=== PATIENT | female | born 1940 | race Caucasian/White ===

== ENCOUNTER → 2020-12-15 13:40 | Outpatient (CLI) | payer MEDICARE, OTHER, SELFPAY ==
--- NOTE | ~2020-12-15 | CT_ITS ---
EXAMINATION: CT lumbar spine wo con DATE: 12/15/2020 14:14 INDICATION: Lumbar radiculopathy. TECHNIQUE: Computed tomography (CT) of the lumbar spine was performed without intravenous contrast. A utomated exposure control and iterative reconstruction technique were employed. The dose-length produ ct was 748.39 mGy-cm. COMPARISON: None FINDINGS: There is dextroscoliosis of thoracolumbar spine. There is 3 mm anterolisthesis of L3 on L4. S1 is a transitional segment. Vertebral body heights are normal. There is mildly decreased disc heig ht at L3-L4 and L4-L5 and severely decreased disc height at L5-S1 with endplate remodeling. The follo wing disc levels are specifically discussed: L1-L2: The disc is bulging. There is mild bilateral facet joint osteoarthritis. There is no neural fo raminal stenosis. There is mild central canal stenosis. L2-L3: The disc is bulging. There is moderate bilateral facet joint osteoarthritis. There is mild chivo ateral neural foraminal stenosis. There is mild central canal stenosis. L3-L4: The disc is bulging. There is severe bilateral facet joint osteoarthritis. There is mild bilat eral neural foraminal stenosis. There is mild central canal stenosis. L4-L5: The disc is bulging. There is severe bilateral facet joint osteoarthritis. There is mild bilat eral neural foraminal stenosis. There is mild central canal stenosis. L5-S1: The disc is bulging. There is severe bilateral facet joint osteoarthritis. There is mild bilat eral neural foraminal stenosis. There is mild central canal stenosis. IMPRESSION: 1. Severe lumbar spondylosis. 2. Thoracolumbar dextroscoliosis. Reviewed, dictated and finalized at location A.
--- NOTE | ~2020-12-15 | XR_ITS ---
EXAMINATION: XR hip RT 2V w AP pelvis INDICATION: Right hip pain TECHNIQUE: AP view of the pelvis and two views of the right hip are obtained. COMPARISON: None available FINDINGS: Alignment is normal. There is no fracture. Mild osteoarthritis is noted in the hips. There are surgical changes of the rectum. There also appear to be surgical changes of left inguinal hernia repair. IMPRESSION: 1. Mild osteoarthritis. Reviewed, dictated and finalized at location B. IMPRESSION: 1. Mild osteoarthritis.
== END ==
PROVIDERS: PCP Emergency Medicine; Visit Provider Nurse Practitioner Adult Health
DX: M16.11 Unilateral primary osteoarthritis, right hip (principal); M47.26 Other spondylosis with radiculopathy, lumbar region; M51.26 Other intervertebral disc displacement, lumbar region
CPT/HCPCS: 72131; 73502

== ENCOUNTER 2020-12-27 09:34 | Outpatient (CLI) | payer MEDICARE, OTHER, SELFPAY ==
--- NOTE | 2020-12-27 09:44 | ECHO_ITS ---
Patient Info Name: Karina Gillespie Age: 80 years : 1940 Gender: Female Ht: 68 in Wt: 162 lbs BSA: 1.89 m2 HR: 71 bpm BP: 167 / 77 mmHg Heart Rhythm: Sinus Rhythm Exam Date: 12/27/2020 10:27 AM Exam Location: [facility] Patient Status: Outpatient Admit Date: 12/27/2020 Staff Ordering Physician: Felipe Madsen DO Disability Advocate: Cathleen Jain RDCS Attending Provider: Felipe Madsen DO Exam Type: CA echo doppler color flow Study Info Indications R06.00 - Dyspnea, unspecified Complete two-dimensional, color flow and Doppler transthoracic echocardiogram is performed. Summary 1. Complete two-dimensional, color flow and Doppler transthoracic echocardiogram is performed. 2. Left ventricular chamber dimension is normal. 3. Left ventricular systolic function is normal, estimated at 60-65%. 4. The left ventricular diastolic function is grade I diastolic dysfunction. 5. E/e' 11 is mildly elevated. 6. Linear artifact in right ventricle suggestive of catheter(s), pacemaker lead(s), or ICD lead(s). 7. Linear artifact in the right atrium suggestive of catheter(s), pacemaker lead(s), or ICD lead(s). 8. There is trace mitral valve regurgitation. 9. There is mild tricuspid valve regurgitation. 10. No pulmonary hypertension, estimated pulmonary arterial systolic pressure is 35 mmHg. Left Ventricle E/e' 11 is mildly elevated. Left ventricular chamber dimension is normal. Left ventricular systolic function is normal, estimated at 60-65%. The left ventricular diastolic function is grade I diastolic dysfunction. Right Ventricle Linear artifact in right ventricle suggestive of catheter(s), pacemaker lead(s), or ICD lead(s). Right ventricular chamber dimension is normal. Right ventricular systolic function is normal. Left Atria Left atrial chamber dimension is normal. Right Atria Linear artifact in the right atrium suggestive of catheter(s), pacemaker lead(s), or ICD lead(s). Right atrial chamber dimension is normal. Aortic Valve The aortic valve is trileaflet. There is no aortic valve stenosis. There is no aortic valve regurgitation. Pulmonic Valve There is no pulmonic regurgitation. Mitral Valve There is no mitral valve stenosis. There is trace mitral valve regurgitation. Tricuspid Valve There is mild tricuspid valve regurgitation. No pulmonary hypertension, estimated pulmonary arterial systolic pressure is 35 mmHg. Pericardium/Pleural There is no pericardial effusion. Inferior Vena Cava Normal inferior vena cava with >50% collapse upon inspiration consistent with normal right atrial pressure, 5 mmHg. Aorta The aortic root size at the sinus of Valsalva is normal. Left Ventricular Outflow Tract Name Value Normal LVOT 2D LVOT Diameter 1.9 cm LVOT Doppler LVOT Peak Gradient 4 mmHg LVOT Mean Gradient 2 mmHg LVOT VTI 27 cm LVOT VTI/AV VTI Ratio 0.7 LVOT Stroke Volume 78 ml LVOT CO 5.2 l/min
== END 2020-12-27 09:35 | disposition home or self-care (01) ==
PROVIDERS: PCP Emergency Medicine; Visit Provider Internal Medicine Cardiovascular Disease
DX: R06.00 Dyspnea, unspecified (principal); I36.1 Nonrheumatic tricuspid (valve) insufficiency
CPT/HCPCS: 93306

== ENCOUNTER 2021-01-03 15:34 | Outpatient (CLI) | payer MEDICARE, OTHER, SELFPAY ==
--- NOTE | ~2021-01-03 | CT_ITS ---
EXAMINATION: CT brain wo con DATE: 01/03/2021 15:57 INDICATION: Ataxia, multiple falls. Struck posterior head. Frontal headache for 3 weeks. TECHNIQUE: Computed tomography (CT) of the head was performed without intravenous contrast. The mA wa s adjusted according to patient size. Iterative reconstruction technique was employed. Exam dose: 60 5.33 mGy-cm total exam DLP. COMPARISON: None FINDINGS: No intracranial mass lesion or hemorrhage or cerebrovascular accident. No midline shift or mass effect effect. There is moderate cerebral and cerebellar volume loss. No subdural or epidural hematoma. Cerebral atherosclerosis. Nonspecific diminished attenuation of cerebral white matter, likely due to chronic small vessel ischemic changes. No fracture or bone destruction of the cranial vault. Included paranasal sinuses and the mastoid air cells are normally developed and aerated. IMPRESSION: No acute intracranial finding Reviewed, dictated and finalized at Location A. Reviewed, dictated and finalized at location A.
== END 2021-01-03 15:35 | disposition home or self-care (01) ==
PROVIDERS: PCP Emergency Medicine; Visit Provider Emergency Medicine
DX: S09.90XA Unspecified injury of head, initial encounter (principal); X58.XXXA Exposure to other specified factors, initial encounter
CPT/HCPCS: 70450

== ENCOUNTER 2021-02-18 08:09 | Emergency (ER) | payer MEDICARE, OTHER, SELFPAY ==
[2021-02-18] VITALS (22 sets, daily range): BP systolic 156–182; BP diastolic 78–97; PULSE 69–74; RESP 12–20; TEMP 36.9; O2SAT 95–98
--- NOTE | 2021-02-18 08:14 | ECG_ITS ---
Measurements Intervals [place] Rate: 71 P: 122 WI: 159 QRS: -54 QRSD: 90 T: 13 QT: 399 QTc: 435 Interpretive Statements ELECTRONIC ATRIAL PACEMAKER LEFT ANTERIOR FASCICULAR BLOCK CANNOT RULE OUT SEPTAL INFARCT, AGE INDETERMINATE ABNORMAL ECG Electronically Signed On 02-18-2021 8:31:38 CDT by Felipe Madsen D.O.
--- NOTE | 2021-02-18 08:16 | ED.GENADULT ---
HPI - General Adult General Chief complaint: Recheck/Abnormal Lab/Rx Stated complaint: htn Time Seen by Provider: 02/18/21 08:12 History of Present Illness HPI narrative: Patient is an 81-year-old female who presents the ER with reports of headache and hypertension. Patient reports she has been having headache intermittently over the last 2 days. Its frontal and throbbing. She has noticed that her blood pressure has been running between 140 and 180 systolic. No chest pain/chest pressure. She has no changes in vision or hearing. No nausea/vomiting/chest pains or abdominal pain. She does report some urinary frequency. Patient will have sensation of feeling hot and flushed in her face. At one point she thought her face was very red. Of note 3 days ago patient received a lumbar epidural steroid injection. Related Data Home Medications Medication Instructions Recorded Confirmed aspirin 81 mg tablet,delayed 81 mg PO QAM tablet 11/08/20 12/20/20 release biotin 5,000 mcg disintegrating 5,000 mcg PO QPM tablet 11/08/20 12/20/20 tablet calcium carbonate 600 mg (1,500 1 tablet PO QPM tablet 11/08/20 12/20/20 mg)-vitamin D3 200 unit tablet docusate sodium 50 mg capsule 200 mg PO HS cap 11/08/20 12/20/20 fluoxetine 20 mg capsule 40 mg PO DAILY 11/08/20 12/20/20 azathioprine 50 mg PO QPM 02/18/21 azathioprine 100 mg PO QAM 02/18/21 Allergies Allergy/AdvReac Type Severity Reaction Status Date / Time morphine Allergy Mild Rash Verified 02/18/21 08:17 prednisone AdvReac Mild Insomnia Verified 02/18/21 08:17 clonazepam [From Klonopin] AdvReac Unknown Verified 02/18/21 08:17 olanzapine AdvReac Unknown Verified 02/18/21 08:17 sulfamethoxazole AdvReac Unknown Verified 02/18/21 08:17 [From Septra] topiramate [From Topamax] AdvReac Unknown Verified 02/18/21 08:17 trimethoprim [From Septra] AdvReac Unknown Verified 02/18/21 08:17 Review of Systems Review of Systems: All systems reviewed & are unremarkable except as noted in HPI and below Constitutional: Constitutional: Denies chills, Denies fatigue and Denies fever(s) Comments: Flushed feeling Eyes: Eyes: Denies change in vision and Denies photophobia ENT: Denies nasal congestion and Denies sore throat Cardiovascular: Cardiovascular: Denies chest pain, Denies rapid heart rate and Denies radiating jaw, neck or arm pain Respiratory: Respiratory: Denies cough and Denies dyspnea Musculoskeletal: Musculoskeletal: Denies back pain and Denies muscle cramps Neurologic: Denies dizziness, Reports headache(s), Denies focal weakness and Denies numbness Psychiatric: Psychiatric: Reports anxiety PMFSH Past Medical History Medical History (Updated 02/18/21 @ 11:23 by Darin Jasmine MD) Behcets syndrome Chicken pox Cholecystectomy planned Depression Goiter Hernia HLD (hyperlipidemia) Kidney disease Mumps Pacemaker Psychiatric care Tonsillectomy planned Surgical History Surgical History History of colectomy (~08/16/08) Family History Family History Father Congestive heart failure Emphysema, unspecified Mother , 87 Parkinsons Social History Social History Social History: Patient rarely drinks caffeine Smoking status: Never smoker Alcohol intake: never Substance use: never Substance use type: does not use Additional living arrangements comments: Resident of [facility] Exam Narrative: GENERAL: Well-appearing, well-nourished, and in no acute distress. HEAD: Normocephalic, atraumatic. EYES: PERRL and EOMI. CHEST: Clear to auscultation. No respiratory distress. HEART: Regular rate and rhythm. Normal peripheral pulses. ABDOMEN: Soft, nontender, nondistended. EXTREMITIES: Normal range of motion. No edema. SKIN: Warm, dry, no rash. NE
[2021-02-18 08:57] LABS: Basophils Percent Auto 0.2 % (0.2-1.2); Eosinophils Percent Auto 0.4 % (0-4.4); Hematocrit 37.8 % (37.0-47.0); Hemoglobin 12.4 g/dL (12.0-15.0); Immature Granulocyte Absolute 0.03 K/mm3 (0.00-0.031); Immature Granulocyte Percent A 0.4 % (0-0.5); Lymphocytes Absolute Auto 3.35 K/mm3 (0.9-3.2); Lymphocytes Percent Auto 39.5 % (18.3-44.2); Mean Corpuscular HGB Conc 32.8 g/dl (32-36); Mean Corpuscular Hemoglobin 35.2 pg (26-34); Mean Corpuscular Volume 107.4 fl (80-100); Mean Platelet Volume 9.9 fl (7.4-10.4); Monocytes Absolute Auto 0.5 K/mm3 (0.1-0.6); Monocytes Percent Auto 6.2 % (2.6-8.5); Neutrophils Absolute Auto 4.5 K/mm3 (1.3-6.7); Neutrophils Percent Auto 53.3 % (45.5-73.1); Platelet Count Result 254 k/mm3 (150-375); Red Blood Count 3.52 M/mm3 (4.2-5.4); White Blood Count 8.5 K/mm3 (4.5-10.0)
[2021-02-18 09:07] LABS: Anion Gap 7 mmol/L (8-16); Blood Urea Nitrogen 19 mg/dL (7-17); Calcium 10.2 mg/dL (8.4-10.2); Carbon Dioxide 27 mmol/L (22-30); Chloride 107 mmol/L (98-107); Estimated CRCL calculation 35 ml/min; Estimated Glomerular Filt Rate 48; Glucose 106 mg/dL (65-110); Potassium 3.9 mmol/L (3.4-5.0); Sodium 141 mmol/L (137-145)
[2021-02-18] MEDS: ACETAMINOPHEN 500 MG TABLET 1000 MG PO (09:16)
[2021-02-18] MEDS: ALPRAZolam (*CRX) 0.25 MG TABLET 0.5 MG PO (09:16)
[2021-02-18 09:39] LABS: Add Urine Microscopic? YES; Appearance Urine Clear (Clear); Bacteria Urine Trace /hpf; Bilirubin Urine Negative (Negative); Blood Urine 1+ (Negative); Color Urine Straw (Yellow); Glucose Urine UA Negative (Negative); Ketones Urine Negative (Negative); Leukocyte Esterase Ur Negative LEU/UL (Negative); Nitrate Urine Negative (Negative); Protein Urine 1+ mg/dL (Negative); RBC Urine 0-2 /hpf (0-2); Specific Grav Ur 1.011 (1.001-1.035); Squamous Epithelial Cell Urine Rare /hpf (Few); Urobilinogen Urine Negative mg/dL (<2.0); WBC Urine 0-3 /hpf
== END 2021-02-18 11:50 | disposition home or self-care (01) ==
PROVIDERS: Emergency Provider Emergency Medicine; PCP Emergency Medicine
DX: G44.40 Drug-induced headache, not elsewhere classified, not intractable (principal); T38.0X5A Adverse effect of glucocorticoids and synthetic analogues, initial encounter; I10 Essential (primary) hypertension; M35.2 Behcet's disease; E78.5 Hyperlipidemia, unspecified; N28.9 Disorder of kidney and ureter, unspecified; Z95.0 Presence of cardiac pacemaker; Z79.82 Long term (current) use of aspirin; Z90.49 Acquired absence of other specified parts of digestive tract; I44.4 Left anterior fascicular block; R94.31 Abnormal electrocardiogram [ECG] [EKG]
CPT/HCPCS: 36415; 80048; 81001; 85025; 93005; 99283; A9270

== ENCOUNTER 2021-08-17 00:02 | Emergency (ER) | payer MEDICARE, OTHER, SELFPAY ==
--- NOTE | ~2021-08-17 | CT_ITS ---
EXAMINATION: CT abdomen pelvis w con DATE: 08/17/2021 01:14 INDICATION: Abdominal pain, nausea and vomiting TECHNIQUE: Computed tomography (CT) of the abdomen and pelvis was performed without intravenous contr ast. Automated exposure control and iterative reconstruction technique were employed. Exam dose: 970 .46 mGy-cm total exam DLP. COMPARISON: None. FINDINGS: Mild predominantly lower lobe atelectasis. Status post cholecystectomy, which likely accounts for the mild prominence of the intrahepatic bile d ucts. 7 mm medial segment left hepatic cyst. Wedge-shaped focus of low attenuation of the right hepatic lobe, nonspecific. No pancreatic mass lesion, calcification or ductal dilatation. Normal splenic size. Normal morphology of the adrenal glands. There is mild irregularity of the cortical outlines bilaterally suggesting bilateral chronic pyelonep hritis. No renal space occupying mass lesion is evident. No urinary tract calculus or hydroureteronep hrosis. There is atherosclerotic calcification of the abdominal aorta but no aneurysm. No intraperitoneal or retroperitoneal or pelvic mass lesion or adenopathy or ascites. Small sliding hiatal hernia. There is a suture line of the distal sigmoid colon consistent with prior partial left colon resection . No bowel obstruction, bowel wall thickening, pneumatosis or intraperitoneal free air. The urinary bladder is unremarkable. Status post hysterectomy. Severe degenerative disease at L5-S1. Bilateral hip osteoarthritis. No suspicious osteolytic or osteo blastic lesions are noted. 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 Reviewed, dictated and finalized at location A. IDER RELATIONS ADVOCATE
[2021-08-17 00:06] VITALS: BP 184/93; PULSE 74; RESP 17; TEMP 37.2; O2SAT 98
--- NOTE | 2021-08-17 00:17 | ECG_ITS ---
Measurements Intervals [place] Rate: 76 P: 122 NV: 163 QRS: -61 QRSD: 91 T: -6 QT: 395 QTc: 446 Interpretive Statements ELECTRONIC ATRIAL PACEMAKER PREMATURE ATRIAL CONTRACTION MARKED LEFT AXIS DEVIATION [QRS AXIS < -30] ABNORMAL EKG Electronically Signed On 08-17-2021 9:54:55 PRINCIPAL NETWORK ENGINEER by Fortuanto Shukla M.D.
[2021-08-17] MEDS: ONDANSETRON INJ 4 MG/2 ML VIAL IV PUSH (00:28)
[2021-08-17] MEDS: SODIUM CHLORIDE 0.9% IV 1,000 ML 999 ML IV CONT ×2 (00:28→02:36)
--- NOTE | 2021-08-17 00:30 | ED.ABDPAIN ---
HPI - Abdominal Pain General Chief Complaint: Abdominal Pain Stated Complaint: N/V ALL DAY Time Seen by Provider: 08/17/21 00:08 Source: patient History of Present Illness HPI narrative: Patient resents with nausea vomiting all day. Reports not been able to keep anything down including her medications. She denies any pain or fever she does report she feels unwell feels like she is to throw up constantly. She denies any diarrhea or constipation denies any abdominal pain she denies any urinary symptoms denies any lightheadedness or dizziness denies any chest pain or shortness of breath. She does not know any known sick contacts. Related Data Home Medications Medication Instructions Recorded Confirmed aspirin 81 mg tablet,delayed 81 mg PO QAM tablet 11/08/20 07/14/21 release biotin 5,000 mcg disintegrating 5,000 mcg PO QPM tablet 11/08/20 07/14/21 tablet calcium carbonate 600 mg-vitamin 1 tablet PO QPM tablet 11/08/20 07/14/21 D3 5 mcg (200 unit) tablet docusate sodium 50 mg capsule 200 mg PO HS cap 11/08/20 07/14/21 fluoxetine 20 mg capsule 40 mg PO DAILY 11/08/20 07/14/21 fluoxetine 40 mg capsule 40 mg PO DAILY 07/14/21 gabapentin 300 mg capsule 300 mg PO TID 07/14/21 immun glob G 10 gram/50 mL(20 SUBCUT 07/14/21 %)-pro-IgA 0-50 mcg/mL subcutaneous soln propranolol 10 mg tablet 10 mg PO Q12H 07/14/21 Allergies Allergy/AdvReac Type Severity Reaction Status Date / Time morphine Allergy Mild Rash Verified 07/14/21 09:52 prednisone AdvReac Mild Insomnia Verified 07/14/21 09:52 clonazepam [From Klonopin] AdvReac Unknown Verified 07/14/21 09:52 olanzapine AdvReac Unknown Verified 07/14/21 09:52 sulfamethoxazole AdvReac Unknown Verified 07/14/21 09:52 [From Septra] topiramate [From Topamax] AdvReac Unknown Verified 07/14/21 09:52 trimethoprim [From Septra] AdvReac Unknown Verified 07/14/21 09:52 Review of Systems Review of Systems: CONSTITUTIONAL: Denies fever, chills, or sweats. EYES: Denies visual changes, redness, or discharge. ENT: Denies rhinorrhea, congestion, sore throat, or otalgia. CARDIOVASCULAR: Denies chest pain, palpitations, or edema. RESPIRATORY: Denies cough or dyspnea. GASTROINTESTINAL: Nausea and vomiting GENITOURINARY: Denies dysuria or hematuria. SKIN: Denies rash or itching. MUSCULOSKELETAL: Denies back pain, joint pain, or myalgia. NEUROLOGIC: Denies headache, numbness, dizziness, or weakness. PSYCHIATRIC: Denies anxiety or depression. 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 Chicken pox Cholecystectomy planned Degenerative joint disease (DJD) of lumbar spine Depression Goiter Hernia HLD (hyperlipidemia) IgA deficiency Kidney disease Mumps Pacemaker Psychiatric care Scoliosis Tonsillectomy planned Surgical History Surgical History History of colectomy (~08/16/08) Family History Family History Father Congestive heart failure Emphysema, unspecified Mother , 87 Parkinsons Social History Social History Social History: Patient rarely drinks caffeine Smoking status: Never smoker Alcohol intake: never Substance use: never Substance use type: does not use Additional living arrangements comments: Resident of [facility] Exam Narrative: GENERAL: Well-appearing, well-nourished, and in no acute distress. HEAD: Normocephalic, atraumatic. EYES: PERRLA and EOMI. ENT: Nares clear, no rhinorrhea or epistaxis. Mucous membranes moist. NECK: Supple. No masses. No JVD CHEST: Clear to auscultation. No respiratory distress. No wheezes rales or rhonchi HEART: Regular rate
[2021-08-17 00:39] LABS: Basophils Percent Auto 0.2 % (0.2-1.2); Eosinophils Percent Auto 0.1 % (0-4.4); Hematocrit 43.3 % (37.0-47.0); Hemoglobin 14.1 g/dL (12.0-15.0); Immature Granulocyte Absolute 0.04 K/mm3 (0.00-0.031); Immature Granulocyte Percent A 0.3 % (0-0.5); Lymphocytes Absolute Auto 3.08 K/mm3 (0.9-3.2); Lymphocytes Percent Auto 25.5 % (18.3-44.2); Mean Corpuscular HGB Conc 32.6 g/dl (32-36); Mean Corpuscular Hemoglobin 34.6 pg (26-34); Mean Corpuscular Volume 106.4 fl (80-100); Monocytes Absolute Auto 0.7 K/mm3 (0.1-0.6); Monocytes Percent Auto 5.8 % (2.6-8.5); Neutrophils Absolute Auto 8.2 K/mm3 (1.3-6.7); Neutrophils Percent Auto 68.1 % (45.5-73.1); Platelet Count Result 319 k/mm3 (150-375); Red Blood Count 4.07 M/mm3 (4.2-5.4); Red Cell Distribution Width 12.9 % (11.5-14.5); White Blood Count 12.1 K/mm3 (4.5-10.0)
[2021-08-17 00:51] LABS: Alanine Aminotransferase 20 U/L (4-35); Albumin Level 4.9 g/dL (3.5-5.1); Alkaline Phosphatase 84 U/L (38-126); Anion Gap 10 mmol/L (8-16); Aspartate Amino Transferase 38 U/L (14-36); Bilirubin,Total 0.8 mg/dL (0.2-1.3); Blood Urea Nitrogen 17 mg/dL (7-17); Carbon Dioxide 26 mmol/L (22-30); Chloride 105 mmol/L (98-107); Estimated CRCL calculation 48 ml/min; Estimated Glomerular Filt Rate > 60; Glucose 139 mg/dL (65-110); Lipase 132 U/L (23-300); Potassium 3.4 mmol/L (3.4-5.0); Sodium 141 mmol/L (137-145)
[2021-08-17 00:52] LABS: Lactic Acid Reflex 1.3 mmol/L (0.7-2.1)
[2021-08-17 01:02] LABS: Troponin I < 0.012 ng/mL (0.000-0.034)
[2021-08-17] MEDS: PROMETHAZINE HCL 25 MG/ML AMPUL 12.5 MG IV PUSH (01:34)
[2021-08-17 01:37] LABS: Troponin I < 0.012 ng/mL (0.000-0.034)
[2021-08-17 02:07] LABS: Appearance Urine Clear (Clear); Bilirubin Urine Negative (Negative); Blood Urine 1+ (Negative); Color Urine Yellow (Yellow); Glucose Urine UA Negative (Negative); Ketones Urine 2+ mg/dL (Negative); Leukocyte Esterase Ur Negative LEU/UL (Negative); Nitrate Urine Negative (Negative); Protein Urine 3+ mg/dL (Negative); Specific Grav Ur 1.025 (1.001-1.035); Urobilinogen Urine 0.2 mg/dL (<2.0)
[2021-08-17 02:17] LABS: Mucus Urine Rare /lpf
[2021-08-17] MEDS: FAMOTIDINE 20 MG/2 ML VIAL IV PUSH (02:36)
[2021-08-17 02:37] LABS: Add Urine Microscopic? YES
[2021-08-17 03:55] VITALS: BP 163/68; PULSE 73; RESP 18; TEMP 36.7; O2SAT 97
== END 2021-08-17 04:15 | disposition home or self-care (01) ==
PROVIDERS: Emergency Provider Emergency Medicine; PCP Physician Assistant
DX: R11.2 Nausea with vomiting, unspecified (principal); M35.2 Behcet's disease; E78.5 Hyperlipidemia, unspecified; N28.9 Disorder of kidney and ureter, unspecified; F32.A Depression, unspecified; Z79.82 Long term (current) use of aspirin; Z95.0 Presence of cardiac pacemaker; K76.89 Other specified diseases of liver; Z90.49 Acquired absence of other specified parts of digestive tract; K44.9 Diaphragmatic hernia without obstruction or gangrene
CPT/HCPCS: 36415; 74177; 80053; 81001; 83605; 83690; 84484; 85025; 93005; 96361; 96374; 96375; 99284; J2405; J2550; J7030; Q9967

== ENCOUNTER 2021-08-19 05:48 | Emergency (ER) | payer MEDICARE, OTHER, SELFPAY ==
[2021-08-19] VITALS (14 sets, daily range): BP systolic 155–196; BP diastolic 75–149; PULSE 70–89; RESP 11–20; TEMP 36.4–37.1; O2SAT 94–98
--- NOTE | ~2021-08-19 | CT_ITS ---
EXAMINATION: CT soft tissue neck w con DATE: 08/19/2021 09:20 INDICATION: Sore throat. Pain with swallowing. Vomiting. TECHNIQUE: Computed tomography (CT) of the neck was performed with 75 mL Omnipaque-350 intravenous co ntrast. Automated exposure control and iterative reconstruction technique were employed. The dose-stephanie gth product was 505.05 mGy-cm. COMPARISON: None FINDINGS: There is mild scarring at the lung apices. There are likely changes of ocular lens replacem ent surgeries. There are no pathologically enlarged lymph nodes. A left chest pacer is noted. The pha rynx and larynx are normal. The paranasal sinuses are clear. The mastoid air cells are normal. There is severe cervical spondylosis. IMPRESSION: 1. No etiology for the patient's symptoms. Reviewed, dictated and finalized at location A. UTIVE OFFICE MANAGER
--- NOTE | ~2021-08-19 | CT_ITS ---
EXAMINATION: CT brain wo con DATE: 08/19/2021 06:53 INDICATION: Confusion. TECHNIQUE: Computed tomography (CT) of the head was performed without intravenous contrast. The mA wa s adjusted according to patient size. Iterative reconstruction technique was employed. The dose-lengt h product was 756.67 mGy-cm. COMPARISON: Head CT 01/03/2021 FINDINGS: There are scattered areas of low attenuation in the cerebral white matter. There is no intr acranial hemorrhage, acute infarction, or abnormal intracranial mass lesion. The ventricles are braydon l in size. There is mild mucosal thickening in the ethmoid sinuses. There are likely changes of ocula r lens replacement surgeries. The mastoid air cells are normal. IMPRESSION: 1. Stable mild nonspecific cerebral white matter disease, which likely represents chronic small vesse l ischemic disease. Reviewed, dictated and finalized at location A. MEN PLANT OPERATOR IMPRESSION: 1. Stable mild nonspecific cerebral white matter disease, which likely represen ts chronic small vessel ischemic disease.
--- NOTE | 2021-08-19 06:08 | ED.GENADULT ---
HPI - General Adult General Chief complaint: Nausea/Vomiting/Diarrhea <Darin Jasmine MD - Last Filed: 08/19/21 07:06> Stated complaint: Fatigue and nauseax few days <Darin Jasmine MD - Last Filed: 08/19/21 07:06> Time Seen by Provider: 08/19/21 05:51 <Darin Jasmine MD - Last Filed: 08/19/21 07:06> History of Present Illness HPI narrative: Patient is an 81-year-old female who presents ER with concerns of fatigue and inability to sleep. Reports she has had insomnia over the last week and does not know why she can sleep. She has tried Benadryl. She is also had some persistent nausea. She did have vomiting this evening. She was seen in the ER 2 days ago. She had a negative CT scan of the abdomen pelvis as well as an unremarkable lab work-up. Patient has no acute complaints of abdominal pain and nausea and vomiting at this time. She is having no weakness or numbness. She has no chest pain or chest pressure or difficulty breathing. Her main concern is her inability to sleep. She reports due to vomiting last week she did not take her Prozac for approximately 1 week but she has since began taking her medication again. She is unsure if she feels anxiety at this time. Patient also reports that she received an injection 3 days ago for her Behcet's which she gets weekly over the last 18 years. There is no difference between that injection in the 1 she has had previous. Does not feel symptoms are related to injection. Patient reports 5/6 days ago she was getting off the toilet when she fell. Did not strike her head. She uses a walker to get around and support her self. <Darin Jasmine MD - Last Filed: 08/19/21 07:06> Related Data Home medications: Home Medications Medication Instructions Recorded Confirmed aspirin 81 mg tablet,delayed 81 mg PO QAM tablet 11/08/20 07/14/21 release biotin 5,000 mcg disintegrating 5,000 mcg PO QPM tablet 11/08/20 07/14/21 tablet calcium carbonate 600 mg-vitamin 1 tablet PO QPM tablet 11/08/20 07/14/21 D3 5 mcg (200 unit) tablet docusate sodium 50 mg capsule 200 mg PO HS cap 11/08/20 07/14/21 fluoxetine 20 mg capsule 40 mg PO DAILY 11/08/20 07/14/21 fluoxetine 40 mg capsule 40 mg PO DAILY 07/14/21 gabapentin 300 mg capsule 300 mg PO TID 07/14/21 immun glob G 10 gram/50 mL(20 SUBCUT 07/14/21 %)-pro-IgA 0-50 mcg/mL subcutaneous soln propranolol 10 mg tablet 10 mg PO Q12H 07/14/21 <Darin Jasmine MD - Last Filed: 08/19/21 07:06> Allergies/adverse reactions: Allergies Allergy/AdvReac Type Severity Reaction Status Date / Time morphine Allergy Mild Rash Verified 08/19/21 06:05 prednisone AdvReac Mild Insomnia Verified 08/19/21 06:05 clonazepam [From Klonopin] AdvReac Unknown Verified 08/19/21 06:05 olanzapine AdvReac Unknown Verified 08/19/21 06:05 sulfamethoxazole AdvReac Unknown Verified 08/19/21 06:05 [From Septra] topiramate [From Topamax] AdvReac Unknown Verified 08/19/21 06:05 trimethoprim [From Septra] AdvReac Unknown Verified 08/19/21 06:05 <Darin Jasmine MD - Last Filed: 08/19/21 07:06> Review of Systems Review of Systems: All systems reviewed & are unremarkable except as noted in HPI and below <Darin Jasmine MD - Last Filed: 08/19/21 07:06> Constitutional: Constitutional: Denies chills, Reports fatigue and Denies fever(s) <Darin Jasmine MD - Last Filed: 08/19/21 07:06> ENT: Denies nasal congestion and Denies sore throat <Darin Jasmine MD - Last Filed: 08/19/21 07:06> Cardiovascular: Cardiovascular: Denies chest pain, Denies rapid heart rate and Denies radiating jaw, neck or arm pain <Darin Jasmine MD - Last Filed: 08/19/21 07:06> Respiratory: Respiratory: Denies cough, Denies dyspnea and Denies wheezing <Darin Jasmine MD - Last Filed: 08/19/21 07:06> Gastrointestinal: Gastrointestinal: Denies abdominal pain, Denies diarrhea, Reports nausea and Reports vomiting <An
[2021-08-19] MEDS: ALPRAZolam (*CRX) 0.5 MG TABLET PO (06:11)
[2021-08-19 06:43] LABS: Basophils Absolute Auto 0.1 K/mm3 (0.0-0.1); Basophils Percent Auto 0.5 % (0.2-1.2); Eosinophils Percent Auto 0.4 % (0-4.4); Hematocrit 40.5 % (37.0-47.0); Hemoglobin 13.4 g/dL (12.0-15.0); Immature Granulocyte Absolute 0.03 K/mm3 (0.00-0.031); Immature Granulocyte Percent A 0.3 % (0-0.5); Lymphocytes Absolute Auto 4.37 K/mm3 (0.9-3.2); Lymphocytes Percent Auto 42.6 % (18.3-44.2); Mean Corpuscular HGB Conc 33.1 g/dl (32-36); Mean Corpuscular Hemoglobin 35.2 pg (26-34); Mean Corpuscular Volume 106.3 fl (80-100); Mean Platelet Volume 10.1 fl (7.4-10.4); Monocytes Absolute Auto 0.8 K/mm3 (0.1-0.6); Monocytes Percent Auto 7.5 % (2.6-8.5); Neutrophils Percent Auto 48.7 % (45.5-73.1); Platelet Count Result 305 k/mm3 (150-375); Red Blood Count 3.81 M/mm3 (4.2-5.4); Red Cell Distribution Width 12.6 % (11.5-14.5); White Blood Count 10.3 K/mm3 (4.5-10.0)
[2021-08-19 06:46] LABS: Anion Gap 10 mmol/L (8-16); Blood Urea Nitrogen 19 mg/dL (7-17); Calcium 9.3 mg/dL (8.4-10.2); Carbon Dioxide 26 mmol/L (22-30); Chloride 104 mmol/L (98-107); Estimated CRCL calculation 35 ml/min; Estimated Glomerular Filt Rate 48; Glucose 125 mg/dL (65-110); Potassium 2.9 mmol/L (3.4-5.0); Sodium 140 mmol/L (137-145)
[2021-08-19] MEDS: POTASSIUM CHLORIDE 20 MEQ TABLET 40 MEQ PO (07:25)
[2021-08-19] MEDS: ONDANSETRON INJ 4 MG/2 ML VIAL IV PUSH (07:26)
[2021-08-19] MEDS: SODIUM CHLORIDE 0.9% IV 1,000 ML 999 ML IV CONT ×2 (07:26→08:52)
== END 2021-08-19 10:35 | disposition home or self-care (01) ==
PROVIDERS: Emergency Medicine; Emergency Provider General Practice; PCP Physician Assistant
DX: E86.0 Dehydration (principal); E87.6 Hypokalemia; J02.9 Acute pharyngitis, unspecified; R11.2 Nausea with vomiting, unspecified; M35.2 Behcet's disease; E78.5 Hyperlipidemia, unspecified; N28.9 Disorder of kidney and ureter, unspecified; Z95.0 Presence of cardiac pacemaker; Z79.82 Long term (current) use of aspirin; F32.A Depression, unspecified; R90.82 White matter disease, unspecified
CPT/HCPCS: 36415; 70450; 70491; 80048; 85025; 87081; 87880; 96361; 96374; 99284; A9270; J2405; J7030; Q9967

== ENCOUNTER 2021-08-21 07:07 | Emergency (ER) | payer MEDICARE, OTHER, SELFPAY ==
[2021-08-21] VITALS (8 sets, daily range): BP systolic 140–161; BP diastolic 72–91; PULSE 70–84; RESP 15–19; TEMP 36.4; O2SAT 97–99
--- NOTE | ~2021-08-21 | CT_ITS ---
EXAMINATION: CTA chest PE protocol DATE: 08/21/2021 08:27 INDICATION: Chest pain TECHNIQUE: Computed tomography angiography (CTA) of the chest was performed with 100 mL Omnipaque-350 intravenous contrast timed to evaluate the pulmonary arteries. Coronal maximum intensity projection 3D-reconstructions were created by the technologist. The dose-length product (DLP) was 257.55 mGy-cm. Automated exposure control and iterative reconstruction technique were employed. COMPARISON: None. FINDINGS: The pulmonary arteries are well-opacified. No pulmonary embolism is identified. Cardiomegal y is noted. There is mild dependent atelectasis. The lungs are free of focal airspace opacities. Ther e are no pathologically enlarged thoracic lymph nodes. There is diffuse wall thickening of the esopha rodrigo. The gallbladder is surgically absent. IMPRESSION: 1. No pulmonary embolism or acute cardiopulmonary abnormality. 2. Diffuse wall thickening of the esophagus which could reflect esophagitis. Reviewed, dictated and finalized at location [facility]. CONSULTANT
--- NOTE | 2021-08-21 07:19 | ECG_ITS ---
Measurements Intervals [place] Rate: 75 P: 122 [place]: 151 QRS: -57 QRSD: 89 T: -7 QT: 373 QTc: 417 Interpretive Statements ELECTRONIC ATRIAL PACEMAKER WITH INTERMITTENT PREMATURE ATRIAL CONTRACTIONS LEFT AXIS DEVIATION [QRS AXIS < -30] PATTERN CONSISTENT WITH PULMONARY DISEASE NONSPECIFIC T-WAVE ABNORMALITY ABNORMAL ECG COMPARED TO ECG 08/17/2021 00:19:35 T-WAVE ABNORMALITY NOW PRESENT Electronically Signed On 08-21-2021 14:08:52 AGENCY APPOINTMENTS SUPERVISOR by Martin Ronquillo M.D.
[2021-08-21] MEDS: NITROGLYCERIN SL 0.4 MG TABLET SUBLINGUAL (07:37)
[2021-08-21 07:50] LABS: Basophils Percent Auto 0.3 % (0.2-1.2); Eosinophils Absolute Auto 0.1 K/mm3 (0-0.3); Eosinophils Percent Auto 0.5 % (0-4.4); Hematocrit 40.2 % (37.0-47.0); Hemoglobin 13.5 g/dL (12.0-15.0); Immature Granulocyte Absolute 0.03 K/mm3 (0.00-0.031); Immature Granulocyte Percent A 0.3 % (0-0.5); Lymphocytes Absolute Auto 2.89 K/mm3 (0.9-3.2); Lymphocytes Percent Auto 31.3 % (18.3-44.2); Mean Corpuscular HGB Conc 33.6 g/dl (32-36); Mean Corpuscular Volume 107.2 fl (80-100); Mean Platelet Volume 9.9 fl (7.4-10.4); Monocytes Absolute Auto 0.6 K/mm3 (0.1-0.6); Monocytes Percent Auto 6.8 % (2.6-8.5); Neutrophils Absolute Auto 5.6 K/mm3 (1.3-6.7); Neutrophils Percent Auto 60.8 % (45.5-73.1); Platelet Count Result 288 k/mm3 (150-375); Red Blood Count 3.75 M/mm3 (4.2-5.4); Red Cell Distribution Width 12.7 % (11.5-14.5); White Blood Count 9.2 K/mm3 (4.5-10.0)
[2021-08-21 08:03] LABS: Alanine Aminotransferase 25 U/L (4-35); Albumin Level 4.4 g/dL (3.5-5.1); Alkaline Phosphatase 69 U/L (38-126); Anion Gap 11 mmol/L (8-16); Aspartate Amino Transferase 35 U/L (14-36); Bilirubin,Total 0.6 mg/dL (0.2-1.3); Blood Urea Nitrogen 15 mg/dL (7-17); Calcium 9.5 mg/dL (8.4-10.2); Carbon Dioxide 25 mmol/L (22-30); Chloride 103 mmol/L (98-107); Estimated CRCL calculation 43 ml/min; Estimated Glomerular Filt Rate 60; Glucose 98 mg/dL (65-110); Potassium 3.6 mmol/L (3.4-5.0); Sodium 139 mmol/L (137-145)
[2021-08-21 08:04] LABS: Partial Thromboplastin Time 26.4 SECONDS (22.3-36.8); Prothrombin Time 12.5 Seconds (11.1-14.7)
[2021-08-21 08:05] LABS: D Dimer 1.71 ug/mL (<0.48)
[2021-08-21] MEDS: LORazepam INJ (*CRX) 2 MG/ML VIAL 1 MG IV PUSH (08:13)
[2021-08-21 08:15] LABS: NT Pro B Type Natriuretic Pept 868 pg/mL (5-100); Troponin I 0.016 ng/mL (0.000-0.034)
--- NOTE | 2021-08-21 08:26 | ED.GENADULT ---
HPI - General Adult General Chief complaint: Chest Pain Stated complaint: chest pain Time Seen by Provider: 08/21/21 07:18 Source: patient, family and EMS Mode of arrival: EMS Limitations: no limitations History of Present Illness HPI narrative: Patient is 81 years old white female presented to the ED with intermittent shaking, chest tightness for 1 week. Patient feels very anxious. Patient ran out of Xanax 1 week ago, 0.5 mg 3 times daily. Trouble sleeping lately. Patient came from assisting living, denies any fever, chills, vomiting, shortness of breath, back pain or abdominal pain. Related Data Home Medications Medication Instructions Recorded Confirmed aspirin 81 mg tablet,delayed 81 mg PO QAM tablet 11/08/20 07/14/21 release biotin 5,000 mcg disintegrating 5,000 mcg PO QPM tablet 11/08/20 07/14/21 tablet calcium carbonate 600 mg-vitamin 1 tablet PO QPM tablet 11/08/20 07/14/21 D3 5 mcg (200 unit) tablet docusate sodium 50 mg capsule 200 mg PO HS cap 11/08/20 07/14/21 fluoxetine 20 mg capsule 40 mg PO DAILY 11/08/20 07/14/21 fluoxetine 40 mg capsule 40 mg PO DAILY 07/14/21 gabapentin 300 mg capsule 300 mg PO TID 07/14/21 immun glob G 10 gram/50 mL(20 SUBCUT 07/14/21 %)-pro-IgA 0-50 mcg/mL subcutaneous soln propranolol 10 mg tablet 10 mg PO Q12H 07/14/21 Allergies Allergy/AdvReac Type Severity Reaction Status Date / Time morphine Allergy Mild Rash Verified 08/21/21 07:35 prednisone AdvReac Mild Insomnia Verified 08/21/21 07:35 clonazepam [From Klonopin] AdvReac Unknown Verified 08/21/21 07:35 olanzapine AdvReac Unknown Verified 08/21/21 07:35 sulfamethoxazole AdvReac Unknown Verified 08/21/21 07:35 [From Septra] topiramate [From Topamax] AdvReac Unknown Verified 08/21/21 07:35 trimethoprim [From Septra] AdvReac Unknown Verified 08/21/21 07:35 Review of Systems Review of Systems: CONSTITUTIONAL: Denies fever, chills, or sweats. EYES: Denies visual changes, redness, or discharge. ENT: Denies rhinorrhea, congestion, sore throat, or otalgia. CARDIOVASCULAR: Denies chest pain, palpitations, or edema. RESPIRATORY: Denies cough or dyspnea. GASTROINTESTINAL: Denies abdominal pain, nausea, vomiting, or diarrhea. GENITOURINARY: Denies dysuria or hematuria. SKIN: Denies rash or itching. MUSCULOSKELETAL: Denies back pain, joint pain, or myalgia. NEUROLOGIC: Denies headache, numbness, or weakness. 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 Chicken pox Cholecystectomy planned Degenerative joint disease (DJD) of lumbar spine Depression Goiter Hernia HLD (hyperlipidemia) IgA deficiency Kidney disease Mumps Pacemaker Psychiatric care Scoliosis Tonsillectomy planned Surgical History Surgical History History of colectomy (~08/16/08) Family History Family History Father Congestive heart failure Emphysema, unspecified Mother , 87 Parkinsons Social History Social History Social History: Patient rarely drinks caffeine Smoking status: Never smoker Alcohol intake: never Substance use: never Substance use type: does not use Additional living arrangements comments: [facility] Exam Narrative: General appearance: Well-developed, well-nourished, intermittent shaking during examination, restlessness Skin: Normal color Head: Normocephalic, nontraumatic Eyes: Clear conjunctiva ENT: Oropharynx normal, ears normal, nose normal Neck: Supple, nontender Chest and respiratory: Airway patent, no respiratory distress, no accessory muscle use Heart: Regular rate/rhythm Abdomen: Soft, nontender, no organomegaly, quiet bowel sounds Vasc
== END 2021-08-21 09:49 ==
PROVIDERS: Emergency Provider Emergency Medicine; PCP Physician Assistant
DX: R07.89 Other chest pain (principal); F41.9 Anxiety disorder, unspecified; M35.2 Behcet's disease; E78.5 Hyperlipidemia, unspecified; N28.9 Disorder of kidney and ureter, unspecified; Z95.0 Presence of cardiac pacemaker; Z90.49 Acquired absence of other specified parts of digestive tract; D80.2 Selective deficiency of immunoglobulin A [IgA]; Z79.84 Long term (current) use of oral hypoglycemic drugs; R94.31 Abnormal electrocardiogram [ECG] [EKG]; R93.3 Abnormal findings on diagnostic imaging of other parts of digestive tract
CPT/HCPCS: 36415; 71275; 80053; 83880; 84484; 85025; 85380; 85610; 85730; 93005; 96374; 99284; A9270; J2060; Q9967

== ENCOUNTER 2021-08-30 16:32 | Emergency (ER) | payer MEDICARE, OTHER, SELFPAY ==
[2021-08-30] VITALS (18 sets, daily range): BP systolic 157–189; BP diastolic 86–116; PULSE 70–89; RESP 16–22; TEMP 36.6; O2SAT 96–99
--- NOTE | ~2021-08-30 | CT_ITS ---
EXAMINATION: CT brain wo con DATE: 08/30/2021 17:14 INDICATION: Headache. Hypertension. TECHNIQUE: Computed tomography (CT) of the head was performed without intravenous contrast. The mA wa s adjusted according to patient size. Iterative reconstruction technique was employed. Exam dose: 60 5.33 mGy-cm total exam DLP. COMPARISON: 08/19/2021 CT brain FINDINGS: There is bilateral carotid siphon internal carotid artery calcification consistent cerebral atherosclerosis. There is diminished attenuation of the cerebral white matter likely due to chronic small vessel ischemic changes. No intracranial mass lesion or hemorrhage or recent cerebrovascular accident is evident. No midline s hift or mass effect effect. There is moderate cerebral and cerebellar volume loss. Status post ocular lens replacements. No fracture or bone destruction of the cranial vault. The mastoid air cells and included paranasal sinuses are unremarkable. IMPRESSION: Cerebral atherosclerosis and chronic small vessel ischemic changes of the cerebral white matter No acute intracranial finding or significant change since 08/19/2021 Reviewed, dictated and finalized at Location [facility]. Reviewed, dictated and finalized at location A.
--- NOTE | 2021-08-30 16:40 | ECG_ITS ---
Measurements Intervals [place] Rate: 79 P: 120 FL: 160 QRS: -61 QRSD: 90 T: -4 QT: 405 QTc: 466 Interpretive Statements PROBABLE ELECTRONIC ATRIAL PACEMAKER LEFT AXIS DEVIATION [QRS AXIS < -30] PATTERN CONSISTENT WITH PULMONARY DISEASE POOR R-WAVE PROGRESSION COMPARED TO ECG 08/21/2021 07:21:38 NO SIGNIFICANT CHANGES Electronically Signed On 08-30-2021 20:29:12 CDT by Alison Wallace M.D.
[2021-08-30 17:06] LABS: Basophils Percent Auto 0.4 % (0.2-1.2); Eosinophils Absolute Auto 0.1 K/mm3 (0-0.3); Eosinophils Percent Auto 1.2 % (0-4.4); Hematocrit 39.6 % (37.0-47.0); Immature Granulocyte Absolute 0.03 K/mm3 (0.00-0.031); Immature Granulocyte Percent A 0.3 % (0-0.5); Lymphocytes Absolute Auto 4.06 K/mm3 (0.9-3.2); Lymphocytes Percent Auto 40.4 % (18.3-44.2); Mean Corpuscular HGB Conc 32.8 g/dl (32-36); Mean Corpuscular Hemoglobin 35.5 pg (26-34); Mean Corpuscular Volume 108.2 fl (80-100); Monocytes Absolute Auto 0.7 K/mm3 (0.1-0.6); Monocytes Percent Auto 7.3 % (2.6-8.5); Neutrophils Absolute Auto 5.1 K/mm3 (1.3-6.7); Neutrophils Percent Auto 50.4 % (45.5-73.1); Platelet Count Result 321 k/mm3 (150-375); Red Blood Count 3.66 M/mm3 (4.2-5.4); Red Cell Distribution Width 13.2 % (11.5-14.5); White Blood Count 10.1 K/mm3 (4.5-10.0)
[2021-08-30 17:19] LABS: Alanine Aminotransferase 19 U/L (4-35); Albumin Level 4.2 g/dL (3.5-5.1); Alkaline Phosphatase 67 U/L (38-126); Anion Gap 8 mmol/L (8-16); Aspartate Amino Transferase 31 U/L (14-36); Bilirubin,Total 0.5 mg/dL (0.2-1.3); Blood Urea Nitrogen 16 mg/dL (7-17); Calcium 9.3 mg/dL (8.4-10.2); Carbon Dioxide 24 mmol/L (22-30); Chloride 106 mmol/L (98-107); Estimated CRCL calculation 43 ml/min; Estimated Glomerular Filt Rate 60; Glucose 103 mg/dL (65-110); Potassium 3.5 mmol/L (3.4-5.0); Sodium 138 mmol/L (137-145)
--- NOTE | 2021-08-30 19:15 | ED.GENADULT ---
HPI - General Adult General Chief complaint: Recheck/Abnormal Lab/Rx Stated complaint: hypertensive Time Seen by Provider: 08/30/21 16:34 Source: patient Mode of arrival: EMS Limitations: no limitations History of Present Illness HPI narrative: 81-year-old with a history of anxiety, hypertension was brought in from senior living with complaints of elevated blood pressure and having headache for past few hours. Patient states she gets her regular IgG infusions soon after that her blood pressure was found to be high and patient was later transferred to the ER. She presently denies any chest pain or shortness of breath Onset (ago): hour(s) (3) Location: head Radiation: non-radiation Quality: aching Pain Consistency: constant Relieving factors: none Exacerbating factors: none Associated symptoms: denies other symptoms Related Data Home Medications Medication Instructions Recorded Confirmed aspirin 81 mg tablet,delayed 81 mg PO QAM tablet 11/08/20 07/14/21 release biotin 5,000 mcg disintegrating 5,000 mcg PO QPM tablet 11/08/20 07/14/21 tablet calcium carbonate 600 mg-vitamin 1 tablet PO QPM tablet 11/08/20 07/14/21 D3 5 mcg (200 unit) tablet docusate sodium 50 mg capsule 200 mg PO HS cap 11/08/20 07/14/21 fluoxetine 20 mg capsule 40 mg PO DAILY 11/08/20 07/14/21 fluoxetine 40 mg capsule 40 mg PO DAILY 07/14/21 gabapentin 300 mg capsule 300 mg PO TID 07/14/21 immun glob G 10 gram/50 mL(20 SUBCUT 07/14/21 %)-pro-IgA 0-50 mcg/mL subcutaneous soln propranolol 10 mg tablet 10 mg PO Q12H 07/14/21 Allergies Allergy/AdvReac Type Severity Reaction Status Date / Time morphine Allergy Mild Rash Verified 08/30/21 16:42 prednisone AdvReac Mild Insomnia Verified 08/30/21 16:42 clonazepam [From Klonopin] AdvReac Unknown Verified 08/30/21 16:42 olanzapine AdvReac Unknown Verified 08/30/21 16:42 sulfamethoxazole AdvReac Unknown Verified 08/30/21 16:42 [From Septra] topiramate [From Topamax] AdvReac Unknown Verified 08/30/21 16:42 trimethoprim [From Septra] AdvReac Unknown Verified 08/30/21 16:42 Review of Systems Review of Systems: All systems reviewed & are unremarkable except as noted in HPI and below Constitutional: Constitutional: Reports no additional constitutional complaints Eyes: Eyes: Reports no additional eye complaints ENT: Reports system reviewed and no additional complaints, except as documented Cardiovascular: Cardiovascular: Reports no additional cardiovascular complaints Respiratory: Respiratory: Reports no additional respiratory complaints Musculoskeletal: Musculoskeletal: Reports no additional musculoskeletal complaints Neurologic: Reports as per HPI PMFSH Past Medical History Medical History 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 Chicken pox Cholecystectomy planned Degenerative joint disease (DJD) of lumbar spine Depression Goiter Hernia HLD (hyperlipidemia) IgA deficiency Kidney disease Mumps Pacemaker Psychiatric care Scoliosis Tonsillectomy planned Surgical History Surgical History History of colectomy (~08/16/08) Family History Family History Father Congestive heart failure Emphysema, unspecified Mother , 87 Parkinsons Social History Social History Social History: Patient rarely drinks caffeine Smoking status: Never smoker Alcohol intake: never Substance use: never Substance use type: does not use Additional living arrangements comments: [facility] Ex[facility] Narrative: GENERAL: Well-appearing, well-nourished, and in no acute distress. HEAD: Normocephalic, atraumatic. EYES: PERRLA and EOMI. NECK: Supple. CHEST: Clear to auscultation. No respiratory distress. HEART
== END 2021-08-30 19:39 | disposition home or self-care (01) ==
PROVIDERS: Emergency Provider Family Medicine; PCP Physician Assistant
DX: F41.9 Anxiety disorder, unspecified (principal); R51.9 Headache, unspecified; I10 Essential (primary) hypertension; Z95.0 Presence of cardiac pacemaker
CPT/HCPCS: 36415; 70450; 80053; 85025; 93005; 99284

== ENCOUNTER 2022-02-22 13:09 | Outpatient (CLI) | payer MEDICARE, OTHER, SELFPAY ==
[2022-02-22 13:41] LABS: Basophils Percent Auto 0.4 % (0.2-1.2); Eosinophils Absolute Auto 0.1 K/mm3 (0-0.3); Eosinophils Percent Auto 1.8 % (0-4.4); Immature Granulocyte Absolute 0.02 K/mm3 (0.00-0.031); Immature Granulocyte Percent A 0.3 % (0-0.5); Lymphocytes Percent Auto 36.7 % (18.3-44.2); Mean Corpuscular HGB Conc 31.7 g/dl (32-36); Mean Corpuscular Hemoglobin 33.9 pg (26-34); Mean Corpuscular Volume 106.8 fl (80-100); Mean Platelet Volume 10.2 fl (7.4-10.4); Monocytes Absolute Auto 0.5 K/mm3 (0.1-0.6); Neutrophils Absolute Auto 4.1 K/mm3 (1.3-6.7); Neutrophils Percent Auto 53.8 % (45.5-73.1); Platelet Count Result 279 k/mm3 (150-375); Red Blood Count 3.84 M/mm3 (4.2-5.4); Red Cell Distribution Width 13.2 % (11.5-14.5); White Blood Count 7.6 K/mm3 (4.5-10.0)
[2022-02-22 15:14] LABS: Appearance Urine Clear (Clear); Bilirubin Urine Negative (Negative); Blood Urine Negative (Negative); Color Urine Yellow (Yellow); Glucose Urine UA Negative (Negative); Ketones Urine Negative (Negative); Leukocyte Esterase Ur Negative LEU/UL (Negative); Nitrate Urine Negative (Negative); Protein Urine Negative (Negative); Specific Grav Ur 1.015 (1.001-1.035); Urobilinogen Urine 0.2 mg/dL (<2.0); pH Urine 6.5 (5.0-9.0)
[2022-02-22 15:16] LABS: Alanine Aminotransferase 21 U/L (6-35); Albumin Level 4.9 g/dL (3.5-5.1); Alkaline Phosphatase 76 U/L (38-126); Anion Gap 8 mmol/L (8-16); Aspartate Amino Transferase 27 U/L (14-36); Bilirubin,Total 0.6 mg/dL (0.2-1.3); Blood Urea Nitrogen 22 mg/dL (7-17); CRP < 0.5 mg/dL (<1.0); Calcium 9.9 mg/dL (8.4-10.2); Carbon Dioxide 27 mmol/L (22-30); Chloride 103 mmol/L (98-107); Estimated Glomerular Filt Rate 47; Glucose 104 mg/dL (65-110); Potassium 4.4 mmol/L (3.4-5.0); Sodium 138 mmol/L (137-145)
[2022-02-22 15:33] LABS: Bacteria Urine Trace /hpf; Mucus Urine Rare /lpf
[2022-02-22 15:39] LABS: Add Urine Microscopic? NO
[2022-02-22 15:40] LABS: Erythrocyte Sedimentation Rate 22 mm/hr (0-20)
== END 2022-02-22 13:10 | disposition home or self-care (01) ==
LOC: ANHLAB 13:13
PROVIDERS: PCP Physician Assistant; Visit Provider Internal Medicine
DX: D64.9 Anemia, unspecified (principal); M35.2 Behcet's disease; M06.9 Rheumatoid arthritis, unspecified; Z79.899 Other long term (current) drug therapy
CPT/HCPCS: 36415; 80053; 81003; 85025; 85652; 86140

== ENCOUNTER 2022-02-27 13:42 | Outpatient (CLI) | payer MEDICARE, OTHER, SELFPAY ==
--- NOTE | ~2022-02-27 | DEXA_ITS ---
Bone Density Report Name: STEPHON MCCLELLAN Age: 82 Sex: Female Ethnicity: White Date of : 1940 Indication: postmenopausal; screening for osteoporosis; height loss; hysterectomy; rheumatoid arthritis; Referring Provider: CINTHIA, PENG Sharpe Study: Bone densitometry was performed. Exam Date: February 27, 2022 Accession number: [id number] Bone Density: Region BMD T-score Z-score Classification AP Spine(L1-L4) 1.135 0.8 3.6 Normal Femoral Neck (Left) 0.783 -0.6 1.8 Normal Total Hip (Left) 0.830 -0.9 1.3 Normal Femoral Neck (Right) 0.754 -0.9 1.6 Normal Total Hip (Right) 0.770 -1.4 0.8 Osteopenia Total Hip Mean 0.800 -1.2 1.1 Osteopenia World Health Organization criteria for BMD impression classify patients as: Normal (T-score at or above -1.0), Osteopenia (T-score between -1.0 and -2.5), or Osteoporosis (T-score at or below -2.5). 10-year Fracture Risk(1): Major Osteoporotic Fracture 15% Hip Fracture 3.4% Reported Risk Factors: [place] (), Neck BMD=0.754, BMI=26.8, rheumatoid arthritis (1) FRAX(R) Version 3.08. Fracture probability calculated for an untreated patient. Fracture probability may be lower if the patient has received treatment. Clinical Information Provided by Patient: Has rheumatoid arthritis Has the following medical conditions: Hysterectomy Patient maximum height was 68 Menopause Age: 54 No regular weight bearing exercise Drinks caffeinated beverages Onset of menses at age 10 Number of children 1 Impression: The patient has low bone mass, based on the Right Total Hip T-score. The patient has an estimated ten-year risk of hip fracture of 3.4% and an estimated ten-year risk of major fracture of 15%, based on the WHO FRAX algorithm. Discussion: BONE DENSITY IS LOW AT ONE OR MORE SKELETAL SITES. THE PATIENT'S BMD AND CLINICAL RISK FACTORS CONTRIBUTE TO THIS PATIENT'S INCREASED RISK OF FRACTURE. This patient's lowest T-score is low at one or more skeletal sites. It meets the World Health Organization's (WHO) criteria for ?low bone mass? (T-score between -1.0 and -2.5). The patient's 10-year risk of hip fracture as calculated by FRAX exceeds the threshold where pharmacological therapy is recommended by the National Osteoporosis Foundation (NOF). However, all treatment decisions require clinical judgment and consideration of individual patient factors, including patient preferences, comorbidities, previous drug use, risk factors not captured in the FRAX model (e.g., frailty, falls, vitamin D deficiency, increased bone turnover, interval significant decline in bone density) and possible under or overestimation of fracture risk by FRAX. The patient should follow a healthful lifestyle (good nutrition with adequate calcium and vitamin D, and appropriate derick
--- NOTE | ~2022-02-27 | MM_ITS ---
EXAMINATION: MM screening toni BI w sarahy HISTORY: Screening mammogram TECHNIQUE: Craniocaudal and mediolateral oblique 3-D tomosynthesis images were obtained and synthetic 2-D images were generated. CAD analysis was submitted and interpreted. COMPARISON: No prior mammogram is available for comparison at this institution. BREAST PARENCHYMAL COMPOSITION: There are scattered areas of fibroglandular density. FINDINGS: There is no evidence of suspicious mass, calcification, or architectural distortion to sugg est malignancy in either breast. There has been no suspicious interval change. IMPRESSION: 1. No mammographic evidence of malignancy. 2. Recommend routine screening mammography in one year. BI-RADS Category 1: Negative Reviewed, dictated and finalized at location A.
== END 2022-02-27 13:43 | disposition home or self-care (01) ==
PROVIDERS: PCP Physician Assistant; Visit Provider Physician Assistant
DX: Z12.31 Encounter for screening mammogram for malignant neoplasm of breast (principal); Z78.0 Asymptomatic menopausal state; M85.851 Other specified disorders of bone density and structure, right thigh
CPT/HCPCS: 77063; 77067; 77080

== ENCOUNTER 2022-04-24 16:48 | Emergency (ER) | payer MEDICARE, OTHER, SELFPAY ==
[2022-04-24] VITALS (10 sets, daily range): BP systolic 151–209; BP diastolic 80–92; PULSE 70–78; RESP 14–19; TEMP 37.2; O2SAT 97–100
[2022-04-24 19:14] LABS: Basophils Percent Auto 0.4 % (0.2-1.2); Eosinophils Absolute Auto 0.1 K/mm3 (0-0.3); Eosinophils Percent Auto 0.9 % (0-4.4); Hematocrit 39.7 % (37.0-47.0); Hemoglobin 12.6 g/dL (12.0-15.0); Immature Granulocyte Absolute 0.01 K/mm3 (0.00-0.031); Immature Granulocyte Percent A 0.1 % (0-0.5); Lymphocytes Absolute Auto 2.76 K/mm3 (0.9-3.2); Mean Corpuscular HGB Conc 31.7 g/dl (32-36); Mean Corpuscular Hemoglobin 34.2 pg (26-34); Mean Corpuscular Volume 107.9 fl (80-100); Mean Platelet Volume 9.9 fl (7.4-10.4); Monocytes Absolute Auto 0.6 K/mm3 (0.1-0.6); Monocytes Percent Auto 7.5 % (2.6-8.5); Neutrophils Absolute Auto 4.6 K/mm3 (1.3-6.7); Neutrophils Percent Auto 57.1 % (45.5-73.1); Platelet Count Result 268 k/mm3 (150-375); Red Blood Count 3.68 M/mm3 (4.2-5.4); Red Cell Distribution Width 13.3 % (11.5-14.5); White Blood Count 8.1 K/mm3 (4.5-10.0)
[2022-04-24 19:18] LABS: Alanine Aminotransferase 20 U/L (6-35); Albumin Level 4.7 g/dL (3.5-5.1); Alkaline Phosphatase 80 U/L (38-126); Anion Gap 11 mmol/L (8-16); Aspartate Amino Transferase 27 U/L (14-36); Bilirubin,Total 0.5 mg/dL (0.2-1.3); Blood Urea Nitrogen 21 mg/dL (7-17); Calcium 9.8 mg/dL (8.4-10.2); Carbon Dioxide 29 mmol/L (22-30); Chloride 102 mmol/L (98-107); Estimated CRCL calculation 38 ml/min; Estimated Glomerular Filt Rate 53; Glucose 110 mg/dL (65-110); Lipase 270 U/L (23-300); Potassium 4.2 mmol/L (3.4-5.0); Sodium 142 mmol/L (137-145)
[2022-04-24] MEDS: SODIUM CHLORIDE 0.9% IV 500 ML 999 ML IV CONT (19:46)
[2022-04-24 19:47] LABS: Appearance Urine Clear (Clear); Bilirubin Urine Negative (Negative); Blood Urine Negative (Negative); Color Urine Yellow (Yellow); Glucose Urine UA Negative (Negative); Ketones Urine Negative (Negative); Leukocyte Esterase Ur Negative LEU/UL (Negative); Nitrate Urine Negative (Negative); Protein Urine Negative (Negative); Specific Grav Ur 1.015 (1.001-1.035); Urobilinogen Urine 0.2 mg/dL (<2.0)
[2022-04-24] MEDS: ONDANSETRON INJ 4 MG/2 ML VIAL IV PUSH (19:47)
[2022-04-24] MEDS: MECLIZINE HCL 25 MG TABLET PO (19:48)
[2022-04-24] MEDS: ACETAMINOPHEN 500 MG TABLET 1000 MG PO (19:48)
[2022-04-24 19:59] LABS: RBC Urine 0-2 /hpf (0-2); Squamous Epithelial Cell Urine Occasional /hpf (Few); WBC Urine 0-3 /hpf
[2022-04-24 20:00] LABS: Add Urine Microscopic? NO
--- NOTE | 2022-04-24 20:12 | ED.GENADULT ---
HPI - General Adult General Chief complaint: Recheck/Abnormal Lab/Rx Stated complaint: headache Time Seen by Provider: 04/24/22 19:02 History of Present Illness HPI narrative: Patient is an 82-year-old female who presents ER with several complaints. First complaint is she has had nausea for 2 days. Is been persistent. Worsens with movement like turning her head. [facility] and while turning a corner she became increasingly nauseous/dizzy and had emesis. Nausea worsens with dizziness as well. Denies sinus congestion or sore throat or productive cough. No ringing in the ears or muffled hearing. No chest pain or chest pressure. Noted that her blood pressure is started become elevated which is abnormal for her. She reports compliance with home medications. No known sick contacts. Patient also reports mild frontal headache that is pressure-like that began today. No aggravating factors. Related Data Home Medications Medication Instructions Recorded Confirmed aspirin 81 mg tablet,delayed 81 mg PO QAM 11/08/20 02/22/22 release biotin 5,000 mcg disintegrating 5,000 mcg PO QPM 11/08/20 02/22/22 tablet calcium carbonate 600 mg-vitamin 1 tablet PO QPM 11/08/20 02/22/22 D3 5 mcg (200 unit) tablet (Calcium 600 + D(3)) docusate sodium 50 mg capsule 200 mg PO HS 11/08/20 02/22/22 (Stool Softener) fluoxetine 20 mg capsule 40 mg PO DAILY 11/08/20 02/22/22 immun glob G 10 gram/50 mL(20 subcut 07/14/21 02/22/22 %)-pro-IgA 0-50 mcg/mL subcutaneous soln (Hizentra) propranolol 10 mg tablet 10 mg PO Q12H 07/14/21 02/22/22 bupropion HCl 150 mg 24 hr tablet, 150 mg PO QAM 12/28/21 02/22/22 extended release buspirone 5 mg tablet 5 mg PO BID 12/28/21 02/22/22 immun glob G 4 gram/20 mL(20 subcut 12/28/21 02/22/22 %)-prol-IgA 0-50 mcg/mL subcutaneous soln (Hizentra) levothyroxine 100 mcg capsule 100 mcg PO DAILY 12/28/21 02/22/22 multivitamin with iron 1 tablet PO DAILY 12/28/21 02/22/22 zinc gluconate 50 mg tablet 50 mg PO DAILY 12/28/21 02/22/22 atorvastatin 80 mg tablet (Lipitor) 80 mg PO DAILY 02/22/22 02/22/22 eszopiclone 2 mg tablet (Lunesta) 2 mg PO QHS 02/22/22 02/22/22 propranolol 40 mg tablet 40 mg PO Q12H 02/22/22 02/22/22 Allergies Allergy/AdvReac Type Severity Reaction Status Date / Time morphine Allergy Mild Rash Verified 02/22/22 11:23 prednisone AdvReac Mild Insomnia Verified 02/22/22 11:23 clonazepam [From Klonopin] AdvReac Unknown Verified 02/22/22 11:23 codeine AdvReac Nausea Verified 04/24/22 19:13 olanzapine AdvReac Unknown Verified 02/22/22 11:23 sulfamethoxazole AdvReac Unknown Verified 02/22/22 11:23 [From Septra] topiramate [From Topamax] AdvReac Unknown Verified 02/22/22 11:23 trimethoprim [From Septra] AdvReac Unknown Verified 02/22/22 11:23 Review of Systems Review of Systems: All systems reviewed & are unremarkable except as noted in HPI and below Constitutional: Constitutional: Denies chills, Denies fatigue and Denies fever(s) ENT: Reports vertigo, Denies nasal congestion and Denies sore throat Cardiovascular: Cardiovascular: Denies chest pain, Denies rapid heart rate and Denies radiating jaw, neck or arm pain Respiratory: Respiratory: Denies cough and Denies dyspnea Gastrointestinal: Gastrointestinal: Denies abdominal pain, Denies diarrhea, Reports nausea and Reports vomiting Genitourinary: Genitourinary: Denies nocturia and Denies dysuria Neurologic: Reports dizziness, Denies syncope, Reports headache(s), Denies focal weakness and Denies numbness PMFSH Past Medical History Medical History 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
[2022-04-24 21:28] LABS: Influenza A QL RT-PCR Negative (Negative); Influenza B QL RT-PCR Negative (Negative); SARS-CoV-2 RNA PCR Negative
[2022-04-24] MEDS: hydrALAZINE HCL 20 MG/ML VIAL 10 MG IV PUSH (22:05)
== END 2022-04-24 23:37 | disposition home or self-care (01) ==
PROVIDERS: Physician Assistant; Emergency Provider Emergency Medicine; PCP Physician Assistant
DX: R11.0 Nausea (principal); I10 Essential (primary) hypertension; Z20.822 Contact with and (suspected) exposure to COVID-19; M35.2 Behcet's disease; M51.36 Other intervertebral disc degeneration, lumbar region; F32.9 Major depressive disorder, single episode, unspecified; E78.5 Hyperlipidemia, unspecified; Z95.0 Presence of cardiac pacemaker
CPT/HCPCS: 36415; 80053; 81003; 83690; 85025; 87636; 96361; 96374; 96375; 99284; A9270; J0360; J2405; J7040

== ENCOUNTER 2022-05-03 13:56 | Emergency (ER) | payer MEDICARE, OTHER, SELFPAY ==
--- NOTE | ~2022-05-03 | CT_ITS ---
EXAMINATION: CT brain wo con INDICATION: Headache, hypertension COMPARISON: None TECHNIQUE: Standard unenhanced head CT. The dose-length product (DLP) was 605.33 mGy-cm. The mA was a djusted according to patient size. Iterative reconstruction technique was employed. FINDINGS: There is no acute intraparenchymal hemorrhage. No evidence of mass lesion. No evidence of a cute infarction. There is mild periventricular and subcortical hypodensity probably related to small vessel ischemic disease. There is mild prominence of the sulci and ventricles related to cerebral atr ophy. Intracranial calcified cerebral atherosclerosis is noted. There are no extra-axial collections. There is no mass effect or midline shift. Changes in the globes are likely from ocular lens surgery. The visualized sinuses and mastoid air cells are well aerated. IMPRESSION: 1. No acute intracranial abnormality. 2. Age related findings. Reviewed, dictated and finalized at location F. HER SUPERVISOR
--- NOTE | ~2022-05-03 | CT_ITS ---
EXAMINATION: CT abdomen pelvis w con INDICATION: Vomiting and nausea, abdominal pain TECHNIQUE: Computed tomographic images of the abdomen and pelvis were obtained after the administrati on of 100 cc of Omnipaque 350 intravenous contrast. The dose-length product (DLP) was 547.42 mGy-cm. Automated exposure control and iterative reconstruction technique were employed. COMPARISON: 08/17/2021 FINDINGS: Minimal dependent atelectasis is present in the lung bases. The heart size is normal. The g allbladder is surgically absent. There is a 1.5 cm cyst or hemangioma of the right hepatic lobe. The spleen, pancreas, and adrenal glands are normal. The kidneys are unremarkable. No pathologically enla rged abdominal or pelvic lymph nodes are identified. There is calcified atherosclerosis of the aorta and many of the other arteries. There is a surgical anastomosis in the rectum. A moderate volume of c olonic stool is present. There is severe lumbar spondylosis at L4-5. IMPRESSION: 1. No CT correlate for the patient's symptoms. Reviewed, dictated and finalized at location F. OYMENT EVALUATOR/CASE MANAGER
--- NOTE | ~2022-05-03 | XR_ITS ---
EXAMINATION: XR chest 1V portable INDICATION: Cough TECHNIQUE: Portable AP chest at 1753 hours COMPARISON: None available FINDINGS: Cardiomegaly is noted. There is a prominent epicardial fat pad. The lungs are free of acute opacities. No pleural effusion or pneumothorax. 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 IMPRESSION: 1. Cardiomegaly. Reviewed, dictated and finalized at location F. L ORDER CUTTER IMPRESSION: 1. Cardiomegaly.
[2022-05-03 14:13] VITALS: BP 142/73; PULSE 72; RESP 17; TEMP 36.8; O2SAT 98
[2022-05-03 17:27] VITALS: BP 118/96; PULSE 73; RESP 20; O2SAT 99
--- NOTE | 2022-05-03 17:45 | ECG_ITS ---
Measurements Intervals [place] Rate: 69 P: 120 [place]: 199 QRS: -55 QRSD: 90 T: 5 QT: 346 QTc: 373 Interpretive Statements ELECTRONIC ATRIAL PACEMAKER LEFT AXIS DEVIATION POOR R WAVE PROGRESSION, ANTERIOR LEADS INFERIOR INFARCT, AGE INDETERMINATE BASELINE ARTIFACT- V4 ABNORMAL ECG COMPARED TO ECG 08/30/2021 16:48:21 MYOCARDIAL INFARCT FINDING NOW PRESENT Electronically Signed On 05-03-2022 20:45:16 RESTAURANT GENERAL MANAGER by Felipe Madsen D.O.
[2022-05-03 18:14] LABS: Basophils Percent Auto 0.5 % (0.2-1.2); Eosinophils Absolute Auto 0.1 K/mm3 (0-0.3); Eosinophils Percent Auto 0.7 % (0-4.4); Hematocrit 39.2 % (37.0-47.0); Hemoglobin 12.8 g/dL (12.0-15.0); Immature Granulocyte Absolute 0.02 K/mm3 (0.00-0.031); Immature Granulocyte Percent A 0.2 % (0-0.5); Lymphocytes Percent Auto 43.5 % (18.3-44.2); Mean Corpuscular HGB Conc 32.7 g/dl (32-36); Mean Corpuscular Hemoglobin 34.6 pg (26-34); Mean Corpuscular Volume 105.9 fl (80-100); Mean Platelet Volume 10.1 fl (7.4-10.4); Monocytes Absolute Auto 0.6 K/mm3 (0.1-0.6); Monocytes Percent Auto 7.2 % (2.6-8.5); Neutrophils Absolute Auto 4.2 K/mm3 (1.3-6.7); Neutrophils Percent Auto 47.9 % (45.5-73.1); Platelet Count Result 275 k/mm3 (150-375); White Blood Count 8.7 K/mm3 (4.5-10.0)
[2022-05-03] MEDS: ONDANSETRON INJ 4 MG/2 ML VIAL IV PUSH (18:19)
[2022-05-03] MEDS: SODIUM CHLORIDE 0.9% IV 1,000 ML 999 ML IV CONT (18:19)
[2022-05-03 18:27] LABS: Alanine Aminotransferase 17 U/L (6-35); Albumin Level 4.5 g/dL (3.5-5.1); Alkaline Phosphatase 72 U/L (38-126); Anion Gap 12 mmol/L (8-16); Aspartate Amino Transferase 30 U/L (14-36); Bilirubin,Total 0.6 mg/dL (0.2-1.3); Blood Urea Nitrogen 17 mg/dL (7-17); Calcium 9.9 mg/dL (8.4-10.2); Carbon Dioxide 30 mmol/L (22-30); Chloride 99 mmol/L (98-107); Estimated CRCL calculation 42 ml/min; Estimated Glomerular Filt Rate 60; Glucose 99 mg/dL (65-110); Lipase 99 U/L (23-300); Potassium 4.1 mmol/L (3.4-5.0); Sodium 141 mmol/L (137-145)
--- NOTE | 2022-05-03 18:39 | ED.GENADULT ---
HPI - General Adult General Chief complaint: Recheck/Abnormal Lab/Rx Stated complaint: ELEVATED BP Time Seen by Provider: 05/03/22 17:25 Source: RN notes reviewed History of Present Illness HPI narrative: Patient presents emergency room from home for hypertension. Patient states that her blood pressure had increased earlier today up to 200/100 she states it was associated with a headache as well as nausea and vomiting. The patient states that she has been having intermittent nausea and vomiting episodes over the past 10 days she states he is also been having episodes of her blood pressure getting high. She states that she is seen in the emergency department approximately 10 days ago and at that time was given medications to take as needed if her blood pressure got high but she is taken although she did follow-up with her PCP and they did increase her propanolol which she has done. States she does feel sometimes she gets anxious with these episodes she denies any fevers or chills chest pain shortness of breath diarrhea or any other symptoms Related Data Home Medications Medication Instructions Recorded Confirmed aspirin 81 mg tablet,delayed 81 mg PO QAM 11/08/20 02/22/22 release biotin 5,000 mcg disintegrating 5,000 mcg PO QPM 11/08/20 02/22/22 tablet calcium carbonate 600 mg-vitamin 1 tablet PO QPM 11/08/20 02/22/22 D3 5 mcg (200 unit) tablet (Calcium 600 + D(3)) docusate sodium 50 mg capsule 200 mg PO HS 11/08/20 02/22/22 (Stool Softener) fluoxetine 20 mg capsule 40 mg PO DAILY 11/08/20 02/22/22 immun glob G 10 gram/50 mL(20 subcut 07/14/21 02/22/22 %)-pro-IgA 0-50 mcg/mL subcutaneous soln (Hizentra) propranolol 10 mg tablet 10 mg PO Q12H 07/14/21 02/22/22 bupropion HCl 150 mg 24 hr tablet, 150 mg PO QAM 12/28/21 02/22/22 extended release buspirone 5 mg tablet 5 mg PO BID 12/28/21 02/22/22 immun glob G 4 gram/20 mL(20 subcut 12/28/21 02/22/22 %)-prol-IgA 0-50 mcg/mL subcutaneous soln (Hizentra) levothyroxine 100 mcg capsule 100 mcg PO DAILY 12/28/21 02/22/22 multivitamin with iron 1 tablet PO DAILY 12/28/21 02/22/22 zinc gluconate 50 mg tablet 50 mg PO DAILY 12/28/21 02/22/22 atorvastatin 80 mg tablet (Lipitor) 80 mg PO DAILY 02/22/22 02/22/22 eszopiclone 2 mg tablet (Lunesta) 2 mg PO QHS 02/22/22 02/22/22 propranolol 40 mg tablet 40 mg PO Q12H 02/22/22 02/22/22 Allergies Allergy/AdvReac Type Severity Reaction Status Date / Time morphine Allergy Mild Rash Verified 05/03/22 18:20 prednisone AdvReac Mild Insomnia Verified 05/03/22 18:20 clonazepam [From Klonopin] AdvReac Unknown Verified 05/03/22 18:20 codeine AdvReac Nausea Verified 05/03/22 18:20 olanzapine AdvReac Unknown Verified 05/03/22 18:20 sulfamethoxazole AdvReac Unknown Verified 05/03/22 18:20 [From Septra] topiramate [From Topamax] AdvReac Unknown Verified 05/03/22 18:20 trimethoprim [From Septra] AdvReac Unknown Verified 05/03/22 18:20 Review of Systems Review of Systems: Gen.: Denies fevers or chills Eyes: Denies eye pain or visual change ENT: Denies congestion Respiratory: Denies shortness of breath or cough CV: Denies chest pain or palpitations GI: See HPI Musculoskeletal: Denies back pain or muscle pain Neuro: Denies numbness, tingling, weakness or focal weakness Skin: Denies rash Except as documented, all other systems reviewed and negative [facility] Past Medical History Medical History 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
[2022-05-03 19:04] LABS: Macrocytosis 1+ (NORMAL); Platelet Estimate Adequate (Adequate); Schistocytes None Seen (NORMAL)
[2022-05-03 19:09] LABS: Influenza A QL RT-PCR Negative (Negative); Influenza B QL RT-PCR Negative (Negative); SARS-CoV-2 RNA PCR Negative
[2022-05-03 19:44] LABS: Appearance Urine Clear (Clear); Bilirubin Urine Negative (Negative); Blood Urine Negative (Negative); Color Urine Yellow (Yellow); Glucose Urine UA Negative (Negative); Ketones Urine Negative (Negative); Leukocyte Esterase Ur Negative LEU/UL (Negative); Nitrate Urine Negative (Negative); Protein Urine Negative (Negative); Urobilinogen Urine 0.2 mg/dL (<2.0)
[2022-05-03 19:55] LABS: Add Urine Microscopic? NO
[2022-05-03 21:23] VITALS: BP 160/77; PULSE 70; RESP 15; O2SAT 98
== END 2022-05-03 21:44 | disposition home or self-care (01) ==
PROVIDERS: Emergency Provider Emergency Medicine; PCP Physician Assistant
DX: I10 Essential (primary) hypertension (principal); R11.2 Nausea with vomiting, unspecified; Z95.0 Presence of cardiac pacemaker; R94.31 Abnormal electrocardiogram [ECG] [EKG]; I51.7 Cardiomegaly; Z20.822 Contact with and (suspected) exposure to COVID-19
CPT/HCPCS: 36415; 70450; 71045; 74177; 80053; 81003; 83690; 85025; 87636; 93005; 96361; 96374; 99284; J2405; J7030; Q9967

== ENCOUNTER 2022-05-18 10:54 | Outpatient (CLI) | payer MEDICARE, OTHER, SELFPAY ==
[2022-05-18 12:12] LABS: Anion Gap 10 mmol/L (8-16); Blood Urea Nitrogen 21 mg/dL (7-17); Calcium 10.2 mg/dL (8.4-10.2); Carbon Dioxide 29 mmol/L (22-30); Chloride 102 mmol/L (98-107); Estimated Glomerular Filt Rate 43; Glucose 104 mg/dL (65-110); Potassium 4.2 mmol/L (3.4-5.0); Sodium 141 mmol/L (137-145)
== END 2022-05-18 10:55 | disposition home or self-care (01) ==
LOC: ANHLAB 11:04
PROVIDERS: PCP Physician Assistant; Visit Provider Physician Assistant
DX: N17.9 Acute kidney failure, unspecified (principal); N18.9 Chronic kidney disease, unspecified
CPT/HCPCS: 36415; 80048

== ENCOUNTER 2023-06-20 10:08 | Emergency (ER) | payer MEDICARE, OTHER, SELFPAY ==
--- NOTE | 2023-06-20 10:13 | ED.FEMALEGU ---
HPI - Female Genitourinary General Chief complaint: Urogenital-Female Stated complaint: Urinary Problems Time Seen by Provider: 06/20/23 10:31 Source: patient and RN notes reviewed Mode of arrival: ambulatory Limitations: no limitations History of Present Illness HPI Narrative: 83-year-old female presents concern for urine frequency, dysuria for 4 days. Reports yesterday she had chills. Reports she has general vaginal discomfort. She reports history of urinary tract infections MD elicited complaint: UTI Related Data Home Medications Medication Instructions Recorded Confirmed aspirin 81 mg tablet,delayed 81 mg PO QAM 11/08/20 05/16/23 release biotin 5,000 mcg disintegrating 5,000 mcg PO QPM 11/08/20 05/16/23 tablet calcium carbonate 600 mg-vitamin 1 tablet PO QPM 11/08/20 05/16/23 D3 5 mcg (200 unit) tablet (Calcium 600 + D(3)) docusate sodium 50 mg capsule 200 mg PO HS 11/08/20 05/16/23 (Stool Softener) fluoxetine 20 mg capsule 40 mg PO DAILY 11/08/20 05/16/23 buspirone 5 mg tablet 5 mg PO BID 12/28/21 05/16/23 immun glob G 4 gram/20 mL(20 subcut 12/28/21 05/16/23 %)-prol-IgA 0-50 mcg/mL subcutaneous soln (Hizentra) levothyroxine 100 mcg capsule 100 mcg PO DAILY 12/28/21 05/16/23 multivitamin with iron 1 tablet PO DAILY 12/28/21 05/16/23 zinc gluconate 50 mg tablet 50 mg PO DAILY 12/28/21 05/16/23 eszopiclone 2 mg tablet (Lunesta) 2 mg PO QHS 02/22/22 05/16/23 propranolol 40 mg tablet 40 mg PO Q12H 02/22/22 05/16/23 Allergies Allergy/AdvReac Type Severity Reaction Status Date / Time morphine Allergy Mild Rash Verified 06/20/23 10:26 prednisone AdvReac Mild Insomnia Verified 06/20/23 10:26 clonazepam [From Klonopin] AdvReac Unknown Verified 06/20/23 10:26 codeine AdvReac Nausea Verified 06/20/23 10:26 olanzapine AdvReac Unknown Verified 06/20/23 10:26 sulfamethoxazole AdvReac Unknown Verified 06/20/23 10:26 [From Septra] topiramate [From Topamax] AdvReac Unknown Verified 06/20/23 10:26 trimethoprim [From Septra] AdvReac Unknown Verified 06/20/23 10:26 Review of Systems Review of Systems: CONSTITUTIONAL: Denies malaise, chills, sweats, or fever. CARDIOVASCULAR: Denies chest pain, palpitations, or edema. RESPIRATORY: Denies cough or dyspnea. GASTROINTESTINAL: Denies abdominal pain, nausea, vomiting, diarrhea GENITOURINARY: Reports dysuria, frequency, urgency, suprapubic pressure. Denies flank pain or hematuria. SKIN: Denies rash or itching. MUSCULOSKELETAL: Denies back pain or myalgia. 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tomy planned Surgical History Surgical History History of colectomy (~08/16/08) Family History Family History Father Congestive heart failure Emphysema, unspecified Mother , 87 Parkinsons Social History Social History Social History: Patient rarely drinks caffeine Smoking status: Never smoker Alcohol intake: never Substance use: never Substance use type: does not use Living arrangements: assisted living Additional living arrangements comments: Resident of [facility] Occupation/Education: retired Comments At time of signature, agree with nursing past medical, surgical, social and family history. There is no relevant family history pertinent to the presenting complaint Exam Narrative: GENERAL: Well-alma
[2023-06-20 10:19] VITALS: BP 155/78; PULSE 70; RESP 18; TEMP 36; O2SAT 98
== END 2023-06-20 10:50 | disposition home or self-care (01) ==
PROVIDERS: Emergency Provider Nurse Practitioner; PCP Student in an Organized Health Care Education/Training Program
DX: R30.0 Dysuria (principal); R35.0 Frequency of micturition; M35.2 Behcet's disease; M47.816 Spondylosis without myelopathy or radiculopathy, lumbar region; E78.5 Hyperlipidemia, unspecified; Z95.0 Presence of cardiac pacemaker; D80.2 Selective deficiency of immunoglobulin A [IgA]; E04.9 Nontoxic goiter, unspecified; F32.A Depression, unspecified; Z79.82 Long term (current) use of aspirin
CPT/HCPCS: 81003; 87086; 87088; 99213; G0463

== ENCOUNTER 2024-10-12 11:23 | Emergency (ER) | payer MEDICARE, OTHER, SELFPAY ==
[2024-10-12 11:28] VITALS: BP 156/73; PULSE 70; RESP 16; TEMP 36.6; O2SAT 98
[2024-10-12 11:41] LABS: EDUAAPPEAR Clear; EDUABILI Negative (Negative); EDUABLOOD Negative (Negative); EDUACOLOR1 Bright; EDUAGLUCOSE Negative (Negative); EDUAKETONE Negative (Negative); EDUALEUKO Negative (Negative); EDUANITRATE Negative (Negative); EDUAPROTEIN Negative (Negative); EDUAUROBILI 0.2
--- NOTE | 2024-10-12 11:44 | ED.FEMALEGU ---
HPI - Female Genitourinary General Chief complaint: Urogenital-Female Stated complaint: Possible UTI Time Seen by Provider: 10/12/24 11:44 Source: patient Mode of arrival: ambulatory Limitations: no limitations History of Present Illness HPI Narrative: 84-year-old female presents with complaint of bladder pressure, decreased urination for 3 days. No urinary urgency, frequency, dysuria. No back pain. Denies nausea vomiting, fever. Patient did not think it was a big deal but states her son made her, because he is going out of town soon and wanted her to be seen before that. Patient states she has been increasing her water intake over the last few days. Did have same constipation 4 days ago but improved with laxative. All systems reviewed and negative except as noted above. Related Data Home Medications ?Medication ?Instructions ?Recorded ?Confirmed ?Last Taken ?Type aspirin 81 mg tablet,delayed 81 mg PO QAM 11/08/20 05/19/24 Unknown History release biotin 5,000 mcg disintegrating 5,000 mcg PO QPM 11/08/20 05/19/24 Unknown History tablet calcium 600 mg (as 1 tablet PO QPM 11/08/20 05/19/24 Unknown History carbonate)-vitamin D3 5 mcg (200 unit) tablet (Calcium 600 + D(3)) docusate sodium 50 mg capsule 200 mg PO HS 11/08/20 05/19/24 Unknown History (Stool Softener) fluoxetine 20 mg capsule 40 mg PO DAILY 11/08/20 05/19/24 Unknown History buspirone 5 mg tablet 5 mg PO BID 12/28/21 05/19/24 Unknown History immun glob G 4 gram/20 mL(20 subcut 12/28/21 05/19/24 Unknown History %)-prol-IgA 0-50 mcg/mL subcutaneous soln (Hizentra) levothyroxine 100 mcg capsule 100 mcg PO DAILY 12/28/21 05/19/24 Unknown History multivitamin with iron 1 tablet PO DAILY 12/28/21 05/19/24 Unknown History zinc gluconate 50 mg tablet 50 mg PO DAILY 12/28/21 05/19/24 Unknown History eszopiclone 2 mg tablet (Lunesta) 2 mg PO QHS 02/22/22 05/19/24 Unknown History propranolol 40 mg tablet 40 mg PO Q12H 02/22/22 05/19/24 Unknown History Allergies Allergy/AdvReac Type Severity Reaction Status Date / Time morphine Allergy Mild Rash Verified 10/12/24 11:36 prednisone AdvReac Mild Insomnia Verified 10/12/24 11:36 clonazepam (From Klonopin) AdvReac Unknown Verified 10/12/24 11:36 codeine AdvReac Nausea Verified 10/12/24 11:36 olanzapine AdvReac Unknown Verified 10/12/24 11:36 sulfamethoxazole (From AdvReac Unknown Verified 10/12/24 11:36 Septra) topiramate (From Topamax) AdvReac Unknown Verified 10/12/24 11:36 trimethoprim (From Septra) AdvReac Unknown Verified 10/12/24 11:36 Review of Systems Review of Systems: CONSTITUTIONAL: Denies fever, chills, or sweats. EYES: Denies visual changes, redness, or discharge. ENT: Denies rhinorrhea, congestion, sore throat, or otalgia. CARDIOVASCULAR: Denies chest pain, palpitations, or edema. RESPIRATORY: Denies cough or dyspnea. GASTROINTESTINAL: Denies abdominal pain, nausea, vomiting, or diarrhea. GENITOURINARY: Denies dysuria or hematuria. Reports bladder pressure, decreased urination. SKIN: Denies rash or itching. MUSCULOSKELETAL: Denies back pain, joint pain, or myalgia. NEUROLOGIC: Denies headache, numbness, or weakness. PSYCHIATRIC: Denies anxiety or depression. All other systems reviewed are negative, except as documented in HPI. 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tomy planned Surgical History Surgical History History of colectomy (~08/16/08) Family History Family History Father Congestive heart failure Emphysema, unspecified Mother , 87 Parkinsons Social History Social History (Reviewed 05/19/24 @ 11:28 by Kerrie Casey [facility]) Social History: Patient rarely drinks caffeine Smoking status: Never smoker Alcohol intake: never Substance use: never Substance use type: does not use Do You Feel Safe in your Home?: Yes Lack of Transportation: No Lack of Food: Never True Current Housing: I Have Housing Concerned About Future Housing: No Difficulty Paying Gas/Electric Bills: No Difficulty Paying for Meds: No Currently Unemployed: No Education: High School Diploma/GED Difficulty w/ Childcare or Family Care: No Living arrangements: with family Additional living arrangements comments: Resident of [facility] Occupation/Education: retired Comments At time of signature, agree with nursing past medical, surgical, social and family history. There is no relevant family history pertinent to the presenting complaint. Exam Narrative: GENERAL: This is a well-nourished, well-developed patient, in no apparent distress. HEAD: normocephalic, atraumatic. EYES: PERRL. Sclera clear/white. Vision is grossly intact. EARS: External ears normal NOSE: External nose normal NECK: Neck supple, non-tender without lymphadenopathy, masses or thyromegaly. CARDIOVASCULAR: Regular rate and rhythm without murmurs, gallops, or rubs. RESPIRATORY: Clear to auscultation. Breath sounds equal bilaterally. No wheezes, rales, or rhonchi. GASTROINTESTINAL: Abdomen soft, non-tender, nondistended. Bowel sounds are active. No hepato-splenomegaly, or palpable masses. No guarding. SKIN: warm, Dry, intact with no suspicious lesions or rash, good texture and turgor. NEURO: awake, alert, and oriented to person, place and time. There were no obvious focal neurologic abnormalities. EXTREMITIES: No joint tenderness, effusion, or edema noted. Course Course Level of Care: Express Care Visit Vital Signs Vital signs: Vital Signs Temperature 36.6 C 10/12/24 11:28 Pulse Rate 70 10/12/24 11:28 Respiratory Rate 16 10/12/24 11:28 Blood Pressure 156/73 H 10/12/24 11:28 Pulse Oximetry 98 10/12/24 11:28 Oxygen Delivery Room Air 10/12/24 11:28 Temperature 36.6 C 10/12/24 11:28 Pulse Rate 70 10/12/24 11:28 Respiratory Rate 16 10/12/24 11:28 Blood Pressure 156/73 H 10/12/24 11:28 Pulse Oximetry 98 10/12/24 11:28 Oxygen Delivery Room Air 10/12/24 11:28 reviewed MDM - Female Genitourinary MDM Narrative Medical decision making narrative: urinalysis normal. urine culture ordered. Pt able to urinate at Express Care without difficulty. recommend follow up with PCP. discussed reasons to go to ER. KUB offered but pt did not feel was necessary. Please be advised this is a medical document. It is intended for [id number] communication. It is written in medical language and may contain unfamiliar abbreviations or verbiage. Medical documents are intended to carry relevant information, facts as evident, and the clinical opinion of the practitioner at the time of the encounter. This report may have been done utilizing a voice recognition system. Attempts have been made to correct errors. However, there may be uncorrected grammatical, spelling, and recognition errors present. The file time of this note does not necessarily represent the time of service. Lab Data Labs: Lab Results 10/12/24 Range/Units 11:33 POC Urine Color Bright POC Urine Clarity Clear POC Urine pH 6.0 POC Ur Specif [place] 1.020 POC Urine Protein Negative (Negative) POC Ur Glucose (UA) Negative (Negative) POC Urine Ketones Negative (Negative) POC Urine Blood Negative (Negative) POC Urine Nitrite Negative (Negative) POC Urine Bilirubin Negative (Negative) POC Urine Urobilinogen 0.2 POC U Leukocyte Esteras Negative (Negative) Discharge Plan Discharge Clinical Impression: Acute urinary retention Patient Disposition: Home Condition: Stable Instructions: Acute Urinary Retention in Women (ED) Additional Instructions: Your urinalysis was normal today. A urine culture was ordered and results will take 48 hours. If your urine culture is positive we will call you that that time and prescribed an antibiotic. Drink at least 64 oz of water a day. You should be urinating at least once every 8 hours. If you are unable to urinate and have abdominal pain go to the ER. Schedule a follow-up appoint with your primary care physician for further evaluation. Patient Language: Macedonian Prescriptions: No Action fluoxetine 20 mg capsule 40 mg PO DAILY aspirin 81 mg tablet,delayed release (DR/EC) 81 mg PO QAM calcium carbonate-vitamin D3 [Calcium 600 + D(3)] 600 mg(1,500mg) -200 unit tablet 1 tablet PO QPM Stool Softener 50 mg capsule 200 mg PO HS biotin 5,000 mcg tablet,disintegrating 5,000 mcg PO QPM buspirone 5 mg tablet 5 mg PO BID Hizentra 4 gram/20 mL (20 %) solution subcut levothyroxine 100 mcg capsule 100 mcg PO DAILY multivitamin with iron Tablet 1 tablet PO DAILY zinc gluconate 50 mg tablet 50 mg PO DAILY propranolol 40 mg tablet 40 mg PO Q12H eszopiclone [Lunesta] 2 mg tablet 2 mg PO QHS gabapentin 600 mg tablet 600 mg PO TID Qty: 90 4RF azathioprine [Imuran] 50 mg tablet 100 mg PO BID Qty: 120 4RF cyanocobalamin (vitamin B-12) 2,500 mcg tablet 2,500 mcg PO DAILY Qty: 90 2RF losartan 50 mg tablet See Rx Instructions .ROUTE .COMPLEX Qty: 90 2RF Dose Instruction: TAKE 1 TABLET BY MOUTH DAILY Rx Instructions: TAKE 1 TABLET BY MOUTH DAILY atorvastatin 80 mg tablet See Rx Instructions .ROUTE .COMPLEX Qty: 90 2RF Dose Instruction: TAKE 1 TABLET BY MOUTH DAILY Rx Instructions: TAKE 1 TABLET BY MOUTH DAILY Follow-up/Referrals: Elton,DO Kleber [Primary Care Provider] - Time of Disposition: 12:05
--- OUTSIDE RECORDS SUMMARY | 2024-10-12 13:24 | XMS_ITS | Clinical Summary ---
Author Organization [facility] Address [address] [place] [address] Care Team Providers Care Boom Pump Operator Name Role Phone Memonicole Kleber Lucero DO Primary Care Provider + Source Comments [facility],non-owned Affiliates and Associated Physician Practices is amultiple site organization consisting of ambulatory clinics and hospital sitesin [place], [place], [place] and [place]. This disclosure is being madepursuant to the Care Everywhere program and may not contain all information available regarding this patient. Last updated 18.[facility] Allergies Active Allergy Reactions Criticality Noted Date Comments Clonazepam Urticaria,Unknown Medium 09/16/2020 Codeine Nausea and/or Vomiting Low 06/20/2023 Kdc:Erythrosine Red No. 3+Red Dye+Acetaminophen+Buta lbital+... Nausea and/or Vomiting 05/25/2021 Morphine Rash,Unknown Medium 09/16/2020 Olanzapine Unknown 06/20/2023 Prednisone Unknown Low 09/16/2020 Insomnia; overly sensitive Medications * Be aware that medications may not be up to date on this document. Alwaysverify current medications with the patient. aspirin EC (Ecotrin) 81 MG tablet Take 1 (one) tablet by mouth once daily Active atorvastatin (Lipitor) 80 MG tablet Oral 4 Active azaTHIOprine (Imuran) 50 MG tablet Take 2 tablets by mouth in the morning and 1 tablet by mouth in the evening. 4 Active busPIRone (Buspar) 15 MG tablet 1 tablet Oral three times a day for 30 days 3 Active Calcium Carb-Cholecalci ferol (Calcium/Vitami n D) 600-400 MG-UNIT TABS Take 2 tablets by mouth once daily 3 Active cyanocobalamin, vitamin B-12, 2500 MCG tablet Dissolve 1 (one) tablet under the tongue once daily Active EPINEPHrine (Epipen) 0.3 MG/0.3ML auto-injector pen Injection 4 Active eszopiclone (Lunesta) 3 MG tablet 1 tablet Oral daily at bedtime for 30 days 3 Active Ferrous Sulfate (IRON PO) Take 1 tablet by mouth once daily Active FLUoxetine (PROzac) 60 MG tablet Oral 4 Active Immune Globulin, Human, (Hizentra) infusion Inject under the skin once a week Active levothyroxine (Synthroid) 100 MCG tablet Oral 4 Active losartan (Cozaar) 50 MG tablet Oral 4 Active propranolol (Inderal) 20 MG tablet Oral 4 Active gabapentin (Neurontin) 300 MG capsule Oral 4 Active Social History Tobacco Use Types Packs/Day Years Used Date Smoking Tobacco: Never Assessed Comments Unknown Sex and Gender Information Value Date Recorded Sex Assigned at Not on file Legal Sex Female 7:34 AM SPRING BENDER Gender Identity Female 07/25/2023 7:34 AM SPRING BENDER Sexual Orientation Not on file Last Filed Vital Signs Vital Sign Reading Time Taken Comments Blood Pressure 146/81 06/15/2024 1:37 PM SPRING BENDER Pulse 70 06/15/2024 1:37 PM SPRING BENDER Temperature - - Respiratory Rate - - Oxygen Saturation 95% 06/15/2024 1:37 PM SPRING BENDER Inhaled Oxygen Concentration - - Weight 78.7 kg (173 lb 6.4 oz) 06/15/2024 1:37 P M SPRING BENDER Height - - Body Mass Index - - Plan of Treatment Upcoming Encounters Date Type Department Care Team (Late st Contact Info) Description 12/14/2024 2:00 PM CDT Office Visit [facility] - Endocrinology [address] [place] [address], [place] [phone] Rosy Guevara MD [address] [place] [address] [place] [address] Health Maintenance Due Date Last Done Comments BONE DENSITY TESTING 1940 MEDICARE AWV 12 MONTHS 1940 DTAP/TDAP/TD VACCINES (1 - Tdap) 1958 PNEUMOCOCCAL VACCINE 50+ (1 of 2 - PCV) 1958 ZOSTER VACCINE (1 of 2) 1958 Respiratory Syncytial Virus (RSV) Vaccine Pt: or over 60 yrs (1 - 1-dose 75+ series) 2014 COVID-19 VACCINE ( - season) 2024 05/09/2021, 07/18/2020, 06/21/2020 DEPRESSION SCREENING 06/17/2024 INFLUENZA VACCINE (Season Ended) 2025 03/17/2023, 03/17/2020, 03/17/2015, Additional history exists HEPATITIS B VACCINE Aged Out No longe r eligible based on patient's age to complete this topic HIB VACCINE Aged Out No longer eligi ble based on patient's age to complete this topic HPV VACCINE Aged Out No longer eligi ble based on patient's age to complete this topic MENINGOCOCCAL (Group B) VACCINE SHARED DECISION-MAKING Aged Out No longer eligible based on patient's age to complete this topic MENINGOCOCCAL GROUPS A/C/Y/W VACCINE Aged Out No longer eligible based on patient's age to complete this topic Insurance [facility] MEDICARE Care Teams Boom Pump Operator Relationship Specialty Start Date End Date Kleber Conde DO [address] [place] [address] PCP - General Family Medicine Geriatric Medicine 11/26/23
--- OUTSIDE RECORDS SUMMARY | 2024-10-12 13:24 | XMS_ITS | Encounter Summary ---
Author Organization [facility] Address [facility] [place] [address] Care Team Providers Care Estimating Engineer Name Role Phone Kleber Conde Primary Care Provider + Encounter Details Date Type Department Care Team (Late st Contact Info) Description 01/29/2024 MyRoll Message Enc [facility] Multispecialty Care - [address], [address] [place] [id number] Help Scout, [facility] Provider EEG Social History Tobacco Use Types Packs/Day Years Used Date Smoking Tobacco: Never Smokeless Tobacco: Never Alcohol Use Standard Drinks/Week Comments Never 0 (1 standard drink = 0.6 oz pur e alcohol) OASIS D0700: Social Isolation Answer Da te Recorded Frequency of experiencing loneliness or isolatio n Sometimes 01/16/2024 OASIS A1250: Transportation Answer Date Recorded Lack of Transportation (Medical) No 01/16/2024 Lack of Transportation (Non-Medical) No 01/16/2024 Patient Unable or Declines to Respond No 01/16/2024 OASIS B1300: Health Literacy Answer Julio e Recorded Frequency of needing help to read materials from doctor or pharmacy Never 01/16/2024 PHQ-2 Answer Date Recorded Patient Health Questionnaire-2 Score 0 08/30/2023 Comments No Sex and Gender Information Value Date Recorded Sex Assigned at Female 06/23/2024 1:08 PM MOTOR ADJUSTER Legal Sex Female 9:29 AM CDT Gender Identity Female 06/09/2021 8:11 AM MOTOR ADJUSTER Sexual Orientation Straight 06/09/2021 8: 11 AM MOTOR ADJUSTER documented as of this encounter Plan of Treatment Upcoming Encounters Date Type Department Care Team (Late st Contact Info) Description 12/29/2024 11:20 AM CDT Office Visit [facility] Family & Internal Medicine - [address] [phone] Kleber Conde DO [facility] [place] [address] documented as of this encounter Visit Diagnoses Not on filedocumented in this encounter Additional Health Concerns Assessment Noted Time PHQ-9 Depression Total Score: 0 08/30/19 11:25 AM CDT documented as of this encounter Care Teams Estimating Engineer Relationship Specialty Start Date End Date Kleber Conde DO [address] [place] [id number] PCP - General FAMILY PRACTICE 06/24/23 documented as of this encounter
--- OUTSIDE RECORDS SUMMARY | 2024-10-12 13:24 | XMS_ITS | Encounter Summary ---
Author Organization [facility] Address [facility] [place] [address] Care Team Providers Care Window Sash Installer Name Role Phone Kleber Conde Primary Care Provider + Encounter Details Date Type Department Care Team (Late Contact Info) Description 04/20/2024 [facility] FIMA Message Enc [facility] Medical [facility] Family & Internal Medicine [address] [phone] [place], [facility] Provider CT results Social History Tobacco Use Types Packs/Day Years [...] Sex Assigned at Female 06/23/2024 1:08 PM OPHTHALMIC MEDICAL TECHNICIAN Legal Sex Female 9:29 AM CDT Gender Identity Female 06/09/2021 8:11 AM OPHTHALMIC MEDICAL TECHNICIAN Sexual Orientation Straight 06/09/2021 8: 11 AM OPHTHALMIC MEDICAL TECHNICIAN documented as of this encounter Plan of Treatment Upcoming Encounters Date Type Department Care Team (Late st Contact Info) Description 12/29/2024 11:20 AM CDT Office Visit [facility] Family & Internal Medicine - [place] [id number] [place] [address] Kleber Conde DO [address] [place] [id number] documented as of this encounter Visit Diagnoses Not on filedocumented in this encounter Additional Health Concerns Assessment Noted Time PHQ-9 Depression Total Score: 0 08/30/19 11:25 AM CDT documented as of this encounter Care Teams Window Sash Installer Relationship Specialty Start Date End Date Kleber Conde DO [address] [place] [id number] PCP - General FAMILY PRACTICE 06/24/23 documented as of this encounter
--- OUTSIDE RECORDS SUMMARY | 2024-10-12 13:24 | XMS_ITS | Continuity of Care Document ---
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 Name Role Phone Rob RAI, Jeremias Unavailable Unavailable Allergies, Adverse Reactions, Alerts Substance Reaction Status Criticality Sulfa (Sulfonamide Antibiotics) made pt sick(moderate) Active No Information topiramate headache(moderate) Active No Inform ation morphine itch/rash(moderate) Active No Infor mation prednisone Hypersensitivity(moderate) Active N o Information Medications Medication Instructions Dosage Effective Dates (start - stop) Status Comments prednisolone acetate 1 % eye drops,suspension one drop both eyes 2 times a day for 2 weeks then stop - Active Restasis 0.05 % eye drops in a dropperette instill 1 drop by ophthalmic route every 12 hours into affected eye(s) 1.00 drop - Active spironolactone 25 mg tablet take 1 tablet by oral route every day 25 MG - Active Calcium 600 + D(3) 600 mg calcium-200 unit capsule - Active Hizentra 4 gram/20 mL (20 %) subcutaneous solution inject (50MG/KG) by subcutaneous route every week via infusion pump not to exceed 4 separate injection sites at the same time 50 MG/KG - Active hydrocodone 10 mg-acetaminophen 325 mg tablet take 1 tablet by oral route every 4 - 6 hours as needed for pain 1.00 tablet - Active Xanax 1 mg tablet take 1 tablet by oral route every day 1 MG - Active Neurontin 300 mg capsule take 1 capsule by oral route 3 times every day 300 MG - Active Stool Softener 50 mg capsule take 1 capsule by oral route 3 times every day at bedtime as needed 50 MG - Active Vitamin B-12 2,500 mcg sublingual tablet 1xd po - Active Prozac 40 mg capsule take 1 capsule by oral route every day in the morning 40 MG - Active simvastatin 40 mg tablet take 1 tablet by oral route every day in the evening 40 MG - Active Synthroid 100 mcg tablet take 1 tablet by oral route every day 100 MCG - Active Imuran 50 mg tablet take 2AM & 1PM tablet by oral route every day - Active Refresh Optive 0.5 %-0.9 % eye drops instill 1 drop by intraocular route 3 times every day 1 drop - No Longer Active Procedures Procedure Date REFRACTION EYE EXAM ESTABLISHED PATIENT EYE EXAM ESTABLISHED PAT EYE EXAM ESTABLISHED PAT EYE EXAM ESTABLISHED PAT PUNCTAL PLUGS EYE EXAM ESTABLISHED PAT EYE EXAM ESTABLISHED PAT EYE EXAM ESTABLISHED PATIENT, MEDICAL Ma REFRACTION OPTIONAL UPDATE EYE EXAM, NEW PATIENT MEDICAL REFRACTION NO UPDATE Advance Directives Directive Yes / No Effective Date File Name No Information Encounters Encounter Description Practice Location Reason(s) For Visit Diagnoses Date Provider Providers Copied on Encounter [facility], [facility], [address] [place] [address], [id number] , tel:[phone] [facility] burning (chief complaint)bu rning (chief complaint) Keratoconjunctivit is sicca, not specified as Sj g nolan's, bilateralMyopia, right eyeRegular astigmatism, bilateralPresbyopi aNonexudative age-related macular degeneration, bilateral, early dry stage 1 Rob Mcdowell. [address] [place] [address], [id number], [place]. tel:[phone] [facility], [facility], [address] [place] [address], [id number] , tel: [phone] [facility] pain, redness, yellow discharge, blurry vision (chief complaint)pa in, redness, yellow discharge, blurry vision (chief complaint) Keratoconjunct sicca, not specified as Sjogren's, bilateralMeibomian gland dysfunction left eye, upper and lower eyelidsMeibomian gland dysfunction right eye, upper and lower eyelids 1 Rob Mcdowell. [address] [place] [address], [id number], [place]. tel:[phone] [facility], [address] [place] [address], [id number] , [place] tel: [phone] [facility] dryness (chief complaint)dr daily (chief complaint) Bilateral keratoconjunctivit is sicca, not specified as Sjogren's 9 Rob Mcdowell. [address] [place] [address], [id number], [place]. 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 [address] [place] [address], [id number], [place]. tel:[phone] [facility], [address] [place] [address], [id number] , [place] tel: [phone] [facility] no improvement (chief complaint)no improvement (chief complaint) Bilateral keratoconjunctivit is sicca, not specified as Sjogren'sKeratocon junct sicca, not specified as Sjogren's, right eyeKeratoconjunct sicca, not specified as Sjogren's, left eye 9 Rob Mcdowell. [address] [place] [address], [id number], [place]. tel:[phone] [facility], [address] [place] [address], [id number] , tel:[phone] [facility] blurry vision (chief complaint)bl urry vision (chief complaint) Keratoconjunctivit is sicca, not specified as Sj g nolan's, bilateralUnspecifi ed blepharitis right eye, upper and lower eyelidsUnspecified blepharitis left eye, upper and lower eyelids [facility] Jeremias. [address] [place] [address], [id number], [place]. tel:[phone] [facility], [address] [place] [address], [id number] , tel:[phone] [facility] decreased vision (chief complaint)de creased vision (chief complaint) PresbyopiaRegular astigmatism, bilateralDry eye syndrome of left lacrimal glandDry eye syndrome of right lacrimal glandKeratoconjunc tivitis sicca, not specified as Sj g nolan's, right eyeKeratoconjuncti vitis sicca, not specified as Sj g nolan's, left eye [facility] Jeremias. [address] [place] [address], [id number], [place]. tel:[phone] [facility], [address] [place] [address], [id number] , tel:[phone] [facility] no problems with vision and no complaints (chief complaint)no problems with vision and no complaints (chief complaint) Lens replaced by other meansBehcets syndrome Terrance Mcdowell. [address] [place] [address], [id number], . tel:[phone] Referring Provider: Eddie Gaviria, [address] [place] [address] [address], [place], [address]. tel:[phone] Family History Family Member Type Diagnosis Age At Onset Mother Problem (finding) hypertension Problem (finding) No family history of Di abetes mellitus Problem (finding) No family history of Gl aucoma Problem (finding) No family hist ory of Macular degeneration Brother Problem (finding) hypertension Problem (finding) No family history of Ca taracts Sister Problem (finding) hypertension Father Problem (finding) hypertension Payers Payer name Insurance type Covered libertarian ID Authoriza tion(s) [place] [id number] [facility] [place] [id number] Social History Type Description Quantity Date Captured Comments Alcohol Use Details Unknown Caffeine Use Details Unknown Tobacco Use Status Current non-smoker Smoking Status Never smoker Non-Smoking Tobacco Use Details : No Details Available : No Details Available Sex Female Chief Complaint And Reason For Visit From encounter dated '09/07/2020 14:30'. burning (chief complaint). Description: The 80 Year old female presents for burning in the right eye and left eye. It affects near vision. Is difficult to read - the more she reads the more her eyes water. Loses her place while reading then. Eyes are really red in the am when wakes up and then start to get red again towards evening. Uses baby shampoo scrubs 2-3 times weekly. Did use all of the Maxitrol drops bid OU - used last night - is almost all gone. The symptom is frequent. The patient denies COVID-19 symptoms - temperature normal. Uses Restasis bid OU. Did have generic art. tears in OU. burning (chief complaint) Reason For Referral Reason For Referral No Information Plan Of Treatment Date Type Action Status Referral Ordered: Eddie Oliveira MD -Family Medicine (related to Bilateral keratoconjunctivitis sicca, not specified as Sjogren's) ordered Referral Referred To: Eddie Oliveira MD [address] [place] [address]
[address] [place] [address], [phone] Ordered: Referrals: Family Medicine. Eddie Oliveira MD. Assume care ordered History Of Present Illness Encounter Date Complaint History Of Prese nt Illness burning The 80 Year old female presents for burning in the right eye and left eye. It affects near vision. Is difficult to read - the more she reads the more her eyes water. Loses her place while reading then. Eyes are really red in the am when wakes up and then start to get red again towards evening. Uses baby shampoo scrubs 2-3 times weekly. Did use all of the Maxitrol drops bid OU - used last night - is almost all gone. The symptom is frequent. The patient denies COVID-19 symptoms - temperature normal. Uses Restasis bid OU. Did have generic art. tears in OU. pain, redness, yello w discharge, blurry vision The 80 Year old female presents for pain, redness, yellow discharge, blurry vision in the right eye and left eye. It started about 4 week(s) ago. It affects near vision. Pt reports 4 weeks ago she started to have pain in her eyes that felt like a bunch of eyelashes stabbing in her eye constantly and pt was in so much pain she would not blink OU. Pt also notes every morning she has crust in her eyes with yellow discharge. Pt used a warm compress and it did not clear the eyes up. Pt struggles to read fine print up close and has to use +3.00 and when pt reads for too often her eyes start to water. Pt also washed OU with baby shampoo like previous Dr told her too and it is not helping her eyes. The patient denies COVID-19 symptoms - temperature normal. Pt is using Restasis 1x OU BID with relief. Pt will need a refill. dryness The 78 Year old female presents for dryness in the right eye and left eye. It affects both near and far vision. The symptom is constant. Eyes don't want to open in middle of night if pt wakes so will put Refresh in with minimal relief. Has had bladder infection and is taking medication that dries everything. The light sensitivity is much improved. Is having difficulty with reading. If reads too long tears will run down both cheeks. Pt is using Restasis bid OU - thinks it does help some. light sensitivity & occasional blurry vision The 78 Year old female presents for follow up Dry Eye OU. Pt reports continued light sensitivity & occasional blurry vision in the right eye and left eye since last exam. It affects both near and far vision. Pt states that she is constantly light sensitive and she wears sunglasses when she watches TV. Pt states that she feels like there are eye lashes rubbing OU. Pt went to Dr. Eddie Oliveira MD on 09/01/18 and he gave her Neomycin and Polymyxin B Sulfates and Dexamethasone gtts to use for 5 days, pt states this gave her temporary relief. She is unsure if both plugs are still in place. Pt is using Refresh gtts OU 3-4 x daily with minimal relief. no improvement The 78 Year old female presents for 3 week F/U MAGALY OU & Blepharitis. Pt reports no improvement in the right or left eye, since her last visit. Pt reports blurry near and far vision. Pt complains that OU burn and are very dry. Pt used the Maxitrol narinder for 2 weeks that burned her eyes and baby shampoo washes burned her eyes also and neither of those seemed to help her symptoms. Pt is now using Refresh gtt 2-3 x daily in OU. blurry vision The 78 Year old female presents for EC visit c hx Behcet Syndrome. Pt reports blurry vision in the right and left eye with near vision when trying to read and is worsening. Pt sees well with OU at [facility]. Pt complains of redness in OU, severe burning and watering in OU when she tries to read. Pt uses Tears gtt PRN OU , about 2-3 x daily and Refresh PM narinder QHS OU (starting 1 month ago with no relief). decreased vision The 77 Year old female presents for follow-up Behcet's Syndrome and IOL OU. Pt reports decreased vision in the right eye and left eye. It started about 1 year(s) ago. It affects near vision c gls. [facility] is good and stable sc. Pt states that her eyes constantly burn, are watery, and feel dry, especially while reading. She says when she wakes up in the morning her eyes are bloodshot. The patient denies pain. Pt uses OTC Art Tears PRN OU c temporary relief. no problems with vis ion and no complaints The 74 Year old female presents for Ref for Augusto Oliveira MD for Behcets Syndrome. Rports no problems with vision and no complaints in the right eye and left eye since last exam . Distance visiongood , near good with readers. The patient denies pain or discomfort. Uses tears PRN OU mert in evening. Functional Status Date Functional Assessmen t No Information Instructions Date Instruction Additional Infor zane Impression/Plan Impression/Plan Return in 6 months w ith RMQ for Refract T & D. Related to Bilateral keratoconjunctivitis sicca, not specified as Sjogren's Impression/Plan Related to Bilat eral keratoconjunctivitis sicca, not specified as Sjogren's Impression/Plan Impression/Plan Impression/Plan Impression/Plan - No sign of episcleritis associated with Behcet's. OU very dry - recommend using ATs OU 3-4 times a day and a nighttime narinder . Eyes look otherwise healthy - no glaucoma, no AMD Update glasses if desired but ok to use OTC readers as well Return yearly Follow up - Return i n 1 year with [facility] for Refract T & D. Impression/Plan - No evidence of vascularitis, retinitis, uveitis or scleritis from Behcet's. If ever develops redness, pain, light sensativity to come in right away. OU look healthy. Vision is great at 20/20 OU. IOL look great. Continue with OTC readers. Follow up - 1 year R/T/D Assessments Type Assessment Date assessment Keratoconjunctivitis sicca, not specified as Sj g nolan's, bilateral assessment Myopia, right eye assessment Regular astigmatism, bilateral M assessment Presbyopia assessment Nonexudative age-rel ated macular degeneration, bilateral, early dry stage Patient Care Teams Name Effective Dates (start - stop) Status Members No Information
--- OUTSIDE RECORDS SUMMARY | 2024-10-12 13:24 | XMS_ITS ---
Author Organization [facility] ([address]) Address [address] [place] [address] Care Team Providers Care Event Staff Member Name Role Phone MemopitaKleber benites Primary Care Provider Alison Krishnan [phone] REASON FOR VISIT Message Social History Sex Assigned At : Social History Observation Description Sex Assigned At Female Encounters Encounter Location Date Provider Diagnosis [facility] [address] [place] [address] 07/23/2024 Alison Banks Plan Of Treatment Next Appt Details Provider Name:Alison Banks , 03/25/2025 12:30:00 PM, [address] [facility] [address], [place], [address], Progress Notes * Eamon MCCLELLANOB:1940 (84 yo F)Acc No.[id number]:07/23/2024 Patient: Karina HOLDEN :1940 A ge:84 Y S ex:Female Address:[address], [place], [address] * true * Date: Generated for Angeliai ng/Faxing/eTransmitting on: 0 10/12/2024 01:24 PM CDT
--- OUTSIDE RECORDS SUMMARY | 2024-10-12 13:24 | XMS_ITS | Patient Health Record ---
Author Organization [facility] [employer] Address [address] [place] [address] Care Team Providers Care Oil Well Services Superintendent Name Role Phone SULEMAN MITCHELL Primary Care Provider Unavail able Shayla Moore Unavailable [phone] Julieta Iverson Unavailable [phone] Migration, Provider Unavailable Unavailable Allergies Allergen (clinical drug ingredient) Drug/Non Drug Allergy documented on EMR Reaction Allergy Type Onset Date Status predniSONE Unknown Drug Allergy 08/26/2023 Activ e Sulfamethoxazole Unknown Drug Allergy 08/26/2023 Active morphine Morphine Unknown Drug Allergy 08/26/2023 Active Reason For Referral No Information Medications Medication SIG (Take, Route, Frequency, Duration) Notes Start Date End Date Status CALCIUM CARBONATE 600 MG-VITAMIN D3 10 MCG (400 UNIT) TABLET *Reorder from [facility] for eRx and Interaction Alerts* 08/26/2023 Active Levothyroxine Sodium 100 MCG Oral 08/26/2023 Active FLUoxetine HCl 60 MG Oral 08/26/2023 Active Propranolol HCl 20 MG Oral 08/26/2023 Active Gabapentin 300 MG Oral 08/26/2023 A ctive Atorvastatin Calcium 80 MG Oral 08/26/2023 Active busPIRone HCl 15 MG 1 tablet Oral three times a day for 30 days Active Losartan Potassium 50 MG Oral 08/26/2023 Active Hizentra *Pick strength-form from [facility] for eRX* 08/26/2023 Active Eszopiclone 3 MG 1 tablet immediately before bedtime Oral Once a day for 14 days make apt for further refills 09/16/2024 Active EPINEPHrine 0.3 MG/0.3ML Injection 08/26/2023 Active Immunizations Vaccine Route Administration Date Status Comme nts Moderna Covid-19 Vaccine 1st dose Unknown 07/18/2019 Ad ministered Moderna Covid-19 Vaccine 1st dose Unknown 06/21/2020 Ad ministered Moderna Covid-19 Vaccine 1st dose Unknown 05/09/2021 Ad ministered Social History Tobacco Use: Social History Observation Description Date Details (start date - stop date) Never Smoker NA - NA Sex Assigned At : Social History Observation Description Sex Assigned At Female Tobacco Control (Standard) Question Answer Notes Tobacco use: Nonsmoker Section Notes: Social History Substance UseDo you or have you ever smoked tobacco?: Never smokerHow much tobacco do you smoke?: NoneDo you or have you ever used any other forms of tobacco or nicotine?: NoDo you or have you ever used e-cigarettes or vape?: Never used electronic cigarettesWhat was the date of your most recent tobacco screening?: 08/26/2023Has tobacco cessation counseling been provided?: NoWhat is your level of alcohol consumption?: NoneHow many years have you consumed alcohol?: 0Do you use any illicit or recreational drugs?: NoWhich illicit or recreational drugs have you used?: NoneHave you used IV drugs?: NoWhat is your level of caffeine consumption?: ModerateEducation and OccupationWhat is the highest grade or level of school you have completed or the highest degree you have received?: High school graduateAre you currently employed?: NoWho is your employer?: RetiredMarriage and SexualityWhat is your relationship status?: WidowedAre you sexually active?: NoHow many children do you have?: 1Home and EnvironmentAre you a caregiver?: NoDo you have any pets?: NoDo you have smoke and carbon monoxide detectors in your home?: YesAre you passively exposed to smoke?: NoAre there any smokers in your house?: NoAre there any guns present in your home?: NoLifestyleDo you feel stressed (tense, restless, nervous, or anxious, or unable to sleep at night)?: Very muchAdvance DirectiveDo you have an advance directive?: YesDo you have a medical power of finance attorney?: YesActivities of Daily LivingAre you able to care for yourself?: YesAre you blind or do you have difficulty seeing?: NoAre you deaf or do you have serious difficulty hearing? : YesDo you have difficulty concentrating, remembering or making decisions?: YesDo you have difficulty walking or climbing stairs?: YesDo you have difficulty dressing or bathing?: NoDo you have difficulty doing errands alone?: NoAre you able to walk?: Yes: walks with assistive device(s)Do you have transportation difficulties?: No Social History Substance UseDo you or have you ever smoked tobacco?: Never smokerHow much tobacco do you smoke?: NoneDo you or have you ever used any other forms of tobacco or nicotine?: NoDo you or have you ever used e-cigarettes or vape?: Never used electronic cigarettesWhat was the date of your most recent tobacco screening?: 08/26/2023Has tobacco cessation counseling been provided?: NoWhat is your level of alcohol consumption?: NoneHow many years have you consumed alcohol?: 0Do you use any illicit or recreational drugs?: NoWhich illicit or recreational drugs have you used?: NoneHave you used IV drugs?: NoWhat is your level of caffeine consumption?: ModerateEducation and OccupationWhat is the highest grade or level of school you have completed or the highest degree you have received?: High school graduateAre you currently employed?: NoWho is your employer?: RetiredMarriage and SexualityWhat is your relationship status?: WidowedAre you sexually active?: NoHow many children do you have?: 1Home and EnvironmentAre you a caregiver?: NoDo you have any pets?: NoDo you have smoke and carbon monoxide detectors in your home?: YesAre you passively exposed to smoke?: NoAre there any smokers in your house?: NoAre there any guns present in your home?: NoLifestyleDo you feel stressed (tense, restless, nervous, or anxious, or unable to sleep at night)?: Very muchAdvance DirectiveDo you have an advance directive?: YesDo you have a medical power of finance attorney?: YesActivities of Daily LivingAre you able to care for yourself?: YesAre you blind or do you have difficulty seeing?: NoAre you deaf or do you have serious difficulty hearing? : YesDo you have difficulty concentrating, remembering or making decisions?: YesDo you have difficulty walking or climbing stairs?: YesDo you have difficulty dressing or bathing?: NoDo you have difficulty doing errands alone?: NoAre you able to walk?: Yes: walks with assistive device(s)Do you have transportation difficulties?: No Problems Problem Type SNOMED Code ICD Code Onset Dates Problem Status W/U Status Risk Notes Problem Mild recurrent major depression (57547437) Major depressive disorder, recurrent, mild (F33.0) Active confirmed Problem Generalized anxiety disorder (33154815) Generalized anxiety disorder (F41.1) 4 Active confirmed Problem Primary insomnia (3553308) Primary insomnia (F51.01) 4 Active confirmed Problem 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 Vital Signs Heart Rate 70 /min 11/21/2023 Height-cm 172.72 cm 11/21/2023 Blood pressure diastolic 80 mm Hg 11/21/2023 Weight-kg 84.82 kg 11/21/2023 Height 68.00 in 11/21/2023 Blood pressure systolic 161 mm Hg 11/21/2023 Weight 187 lbs 11/21/2023 BMI 28.43 kg/m2 11/21/2023 Encounters Encounter Location Date Provider Diagnosis [facility] [place] [address] [address] 10/24/2023 Provider Migration Primary insomnia F51.01 [facility] [place] [address] [address] 11/21/2023 Julieta Iverson Generalized anxiety disorder F41.1 ; Major depressive disorder, recurrent, mild F33.0 ; Primary insomnia F51.01 and Behcet's disease M35.2 [facility] [place] [address] [place] [address] 02/21/2024 Julieta Iverson Generalized anxiety disorder F41.1 ; Major depressive disorder, recurrent, mild F33.0 ; Primary insomnia F51.01 and Behcet's disease M35.2 [facility] [place] [facility] [address] [facility] [address] [address] 10/21/[facility]23 [facility] [address] [address] 10/24/2023 Provider Migration [address] [address] 10/25/2023 Provider Migration [address] [address] 11/02/[address] [address] 11/03/[address] [address] 05/19/2024 Shayla Moore Primary insomnia F51.[address] [address] 07/28/2024 Shayla Moore [address] [address] 07/21/2024 Shayla Moore Primary insomnia F51.01 Assessments Encounter Date Diagnosis (ICD Code) Assessment Notes Treatment Notes Treatment Clinical Notes Section Notes 10/24/2023 Primary insomnia (ICD-10 - F51.01) 05/19/2024 Primary insomnia (ICD-10 - F51.01) 07/21/2024 Primary insomnia (ICD-10 - F51.01) 11/21/2023 Major depressive disorder, recurrent, mild (ICD-10 - F33.0) as above 11/21/2023 Generalized anxiety disorder (ICD-10 - F41.1) stable no new orders education on medications and treatment course f/u specialists and see (parathyroid and behcets), is looking into PT for strength/balance as well f/u 3 months, earlier if concerns meds: cont buspirone 15mg TID also from pcp takes fluoxetine 30mg daily (taking 1/2 of 60mg tab, did not tolerate past 40mg) still takes propranolol and gabapentin from PCP have recommend therapy, has said doesn't want to have to depend on rides/help Notes:*possibly change prozac to other, perhaps paxil-has not tried*jail anxiety, shaky feelings, sleep complaints, not tolerate higher prozac, is afraid to switch*Was on xanax and pain pills in past, PCP stopped them and started temazepam fall 2020. Had increase falls in spring when briefly restarted (xanax and opiate) by new PCP*Prefer to avoid any prn/sedating psych with lunesta and 1800mg gabapentin/day. Age, hx of falls.*Since here has tried: duloxetine, propranolol (still on by PCP), wellbutrin, buspar low dose; trazodone didn't work, melatonin, ramelteon not effective, then lunesta, hydroxyzine not tolerated.*if not effective may try switching to belsomra, dayvigo or quviviq (this one may cause less drowsy) 02/21/2024 Generalized anxiety disorder (ICD-10 - F41.1) cont buspirone 15mg TID also from pcp takes: takes fluoxetine 30mg daily (taking 1/2 of 60mg tab, did not tolerate past 40mg) still takes propranolol and gabapentin from PCP stable, is satisfied with meds cont current meds; review r/b/se not interested in therapy f/u 3 months, earlier if concerns Notes:*Was on xanax and pain pills in past, PCP stopped them and started temazepam fall 2020. Had increase falls in spring when briefly restarted (xanax and opiate) by new PCP *Since here has tried: duloxetine, propranolol (still on by PCP), wellbutrin, buspar low dose; trazodone didn't work, melatonin, ramelteon not effective, then lunesta, hydroxyzine not tolerated. 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 Provider can order medication once approval received. Plan Of Treatment No Information Insurance Providers Payer Name Payer Address Payer Phone Subscriber Number Group Number Insured Name Patient Relationship to Insured Coverage Start Date Coverage End Date Medicare-I l Medicare [address] [place] [phone] [id number] MCCLELLANELLIOTCE Self - patient is the insured [place] [employer] [address] [phone] [id number] ELLIOT MCCLELLANCE Self - patient is the insured Medical (General) History Medical History History ICD Code Problems: Behcet's syndrome Generalized anxiety disorder Mild recurrent major depression Moderate recurrent major depression Primary insomnia , Surgical History Surgery Date(Month/Year) Hernia repair (00596598) Procedure on bladder (837445867) Xcapsl ctrc rmvl cplx wo ecp (01143) Any surgical history Tonsilectomy/adenoids Hysterectomy/revise vagina (45087) Cardiac pacemaker procedure (793733004) Heart surgery 06/17/1991 Removal of gallbladder (66740) 4 Tonsilectomy/adenoids 06/17/2006 hyperparathyroidism 06/2023
--- OUTSIDE RECORDS SUMMARY | 2024-10-12 13:24 | XMS_ITS | Clinical Summary ---
Author Organization [facility] [address] [facility] Address [address] [place] [address] Care Team Providers Care Brick Burner Head Name Role Phone Kleber Conde Primary Care Provide r Jasmeet Wade MD Unavailable [phone] Allergies Active Allergy Reactions Criticality Noted Date Comments Hrtiadueov-Qvcswzilsr-Hwg- Cod Nausea And Vomiting 05/25/2021 Clonazepam Hives,Unknown Medium 09/16/2020 Codeine Nausea only Low 06/20/2023 Morphine Rash Medium 09/16/2020 Olanzapine Unknown 06/20/2023 Prednisone Other (See comments) Low 09/16/2020 Insomnia; overly sensitive Sulfamethoxazole Unknown 06/20/2023 Sulfamethoxazole-Trimethop rim Dizziness Low 09/16/2020 Topiramate Headache Low 09/16/2020 Trimethoprim Unknown 06/20/2023 Medications aspirin 81 mg enteric coated tablet Take 1 tablet (81 mg total) by mouth daily Active atorvastatin (LIPITOR) 80 mg tablet Take 1 tablet (80 mg total) by mouth daily Active busPIRone (BUSPAR) 15 mg tablet Take 1 tablet (15 mg total) by mouth 3 (three) times a day Active calcium carbonate-vit D3-min 600 mg calcium- 400 unit tablet Take 2 tablets by mouth daily 3 Active docusate sodium (COLACE) 100 mg capsule TAKE 2 CAPSULE BY MOUTH TWICE DAILY 2 Active eszopiclone (LUNESTA) 3 mg tablet Take 1 tablet (3 mg total) by mouth nightly Active gabapentin (NEURONTIN) 300 mg capsule Take 2 capsules (600 mg total) by mouth 3 (three) times a day 4 Active immune globulin (Hizentra) subcutaneous infusion Inject under the skin once a week Active levothyroxine (SYNTHROID) 100 mcg tablet Take 1 tablet (100 mcg total) by mouth 4 Active losartan (COZAAR) 50 mg tablet Take 2 tablets (100 mg total) by mouth daily Active FLUoxetine (PROzac) 60 mg tablet Take 0.5 tablets (30 mg total) by mouth daily 4 Active cyanocobalamin, vitamin B-12, (Vitamin B-12) 2,[address] 1 tablet (2,500 mcg total) under the tongue daily Active multivitamin-iron -folic acid 18-400 mg-mcg tablet Take 1 tablet by mouth daily Active omeprazole (PriLOSEC) 40 mg capsule Take 1 capsule (40 mg total) by mouth daily 5 Active propranolol LA (INDERAL LA) 60 mg 24 hr capsule Take 1 capsule (60 mg total) by mouth daily 5 Active azaTHIOprine (IMURAN) 50 mg tablet Take 2 tablets by mouth in the morning and 1 tablet by mouth in the evening. 270 tablet 1 5 Active triamcinolone (KENALOG) 0.1 % paste Apply to mouth sores twice daily after meals. Stop once sores resolve. 5 g 5 Active Active Problems Problem Noted Date Diagnosed Date Acute chest wall pain 07/06/2024 Assessment & Plan (07/06/2024 3:15 PM SPOTLIGHT OPERATOR): Pain with palpation in the left upper chest just lateral to her pacemaker. No erythema or fluctuance. Denies fevers. Advised to contact her tracer clerk. alf current use of therapeutic drug 2023 Assessment & Plan (07/06/2024 1:16 PM SPOTLIGHT OPERATOR): TPMT wnl (16): 09/2023 Assessment & Plan (04/06/2024 1:02 PM CDT): TPMT wnl (16): 09/2023 Assessment & Plan (12/30/2023 10:54 AM CDT): TPMT wnl (16): 09/2023 Behcet's syndrome 10/01/2023 Overview (10/10/2023): TPMT wnl (16): 09/2023 Assessment & Plan (07/06/2024 3:10 PM SPOTLIGHT OPERATOR): Dx 2004, +HLA-B51. She is currently well maintained on AZA 150mg daily. 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 Hx colon resection in 2003. Denies dyspnea or arthralgias. There is no obvious synovitis noted on peripheral exam today. Recent CTA head showed chronic small vessel ischemic changes but was otherwise unremarkable for any findings concerning for neurologic Behcet's. Current pain complaints of back/hip pain appear mechanical. C/o mouth sores in and around her mouth and had this initially but worse severity at onset of Behcet's diagnosis. She defers steroids today. -Start triamcinolone dental past for mouth sores. -Continue AZA 100mg qAM and 50mg qPM. -Routine labs today. -Follow up in 3-4 months. Sooner if needed. Assessment & Plan (04/06/2024 1:26 PM CDT): Dx 2004, +HLA-B51. She is currently well maintained on AZA 150mg daily. 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 Hx colon resection in 2003. Denies dyspnea or arthralgias. There is no obvious synovitis noted on peripheral exam today. Recent CTA head showed chronic small vessel ischemic changes but was otherwise unremarkable for any findings concerning for neurologic Behcet's. Currently pain complaints of back/hip pain appear mechanical. Continue AZA 100mg qAM and 50mg qPM. TPMT wnl. Routine labs today. Follow up in 3-4 months. Sooner if needed. Seen with Dr. Wade. Assessment & Plan (12/30/2023 1:00 PM CDT): Dx 2003, +HLA-B51. She is currently well maintained on AZA 150mg daily. 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 Hx colon resection in 2003. Denies dyspnea or arthralgias. There is no obvious synovitis noted on peripheral exam today. Continue AZA 100mg qAM and 50mg qPM. TPMT wnl. Routine labs today. Follow up in 3-4 months. Sooner if needed. Assessment & Plan (10/01/2023 12:55 PM CDT): 83-year-old female with PMHx of anxiety, depression, Behcet's disease, HTN, HLD,Pacemaker, sicca, anemia, s/p cataract removal, ectopic , miscarriage, hypothyroidism, scoliosis, and OA here to establish care for Behcet's syndrome (Dx 2003, +HLA-B51). She is currently well maintained on AZA 150mg daily. 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 Hx colon resection in 2003. Denies dyspnea or arthralgias. There is no obvious synovitis noted on peripheral exam today. Symptoms and history appear consistent with Behcet's. Will order appropriate serologies to monitor while on AZA. Continue AZA 100mg qAM and 50mg qPM. Check TPMT today. Follow up in 3 months. Sooner if needed. Seen with Dr. Wade. Surgical History Surgery Date Site/Laterality Comments PARTIAL HYSTERECTOMY 06/17/1979 - 06/16/1980 INSERT / REPLACE / REMOVE PACEMAKER 06/17/1990 - 991 TONSILLECTOMY 06/17/1994 - 06/16/1995 RADICAL HYSTERECTOMY 06/17/1996 - 06/16/1997 Social History Tobacco Use Types Packs/Day Years Used Date Smoking Tobacco: Never Tobacco Cessation:Counseling Given: Not Answered Comments Unknown Sex and Gender Information Value Date Recorded Sex Assigned at Not on file Legal Sex Female 6:42 PM SPOTLIGHT OPERATOR Gender Identity Not on file Sexual Orientation Not on file Obstetrics History Last Filed Vital Signs Vital Sign Reading Time Taken Comments Blood Pressure 128/84 07/06/2024 1:20 PM SPOTLIGHT OPERATOR Pulse 69 07/06/2024 1:20 PM SPOTLIGHT OPERATOR Temperature - - Respiratory Rate - - Oxygen Saturation 93% 07/06/2024 1:20 PM SPOTLIGHT OPERATOR Inhaled Oxygen Concentration - - Weight 78.5 kg (173 lb) 07/06/2024 1:20 PM SPOTLIGHT OPERATOR Height 172.7 cm (5' 8 ) 07/06/2024 1:20 PM SPOTLIGHT OPERATOR Body Mass Index 26.3 07/06/2024 1:20 PM SPOTLIGHT OPERATOR Plan of Treatment Health Maintenance Due Date Last Done Comments Depression Screening 1939 Fall Risk Assessment 1940 Osteoporosis Screening-Bone Density Scan 1940 Hepatitis B Screening 1957 Well Visit 65+ 02/14/2004 Zoster Vaccine (1 of 2) 03/23/2013 01/26/2013 DTaP/Tdap/Td Vaccine (2 - Td or Tdap) 09/18/2022 09/18/2012 Covid-19 Vaccine ( - 2023-2 5 season) 2024 05/09/2021, 07/18/2020, 06/21/2020, Additional history exists Influenza Vaccine (#1) 2024 , 03/13/2021, 03/17/2020, Additional history exists Pneumococcal vaccine 65+ Completed 017, 06/06/2013, 01/15/2013 Insurance MEDICARE MEDICARE [facility] Care Teams Brick Burner Head Relationship Specialty Start Date End Date Kleber Conde DO [facility] [place] [address] PCP - General Family Medicine 08/30/23 Jasmeet Wade MD [address] [place] [address] Consulting Physician Rheumatology 08/30/23
--- OUTSIDE RECORDS SUMMARY | 2024-10-12 13:24 | XMS_ITS ---
Author Organization [facility] [place] ([address]) Address [address] [place] [address] Care Team Providers Care Bicycle Repairman Name Role Phone Kleber Conde Primary Care Provider Alison Krishnan Unavailable [phone] Allergies Allergen (clinical drug ingredient) Drug/Non Drug Allergy documented on EMR Reaction Allergy Type Onset Date Status FIORICET WITH CODEINE (uncoded) vomiting Allergy Active SEPTRA (uncoded) dizziness Allergy Act jose morphine Morphine unknown reaction Drug Allergy Active REASON FOR VISIT History of Behcets and IgA deficiency, on Azathioprine, receiving Hizentra SQ 8 gm weekly for the past 18 years. No issues with dosing. Now serviced by [facility], Followed by Dr. Mio Lovelace of Rheumatology. Switched to Dr. aWde in [facility] who recommended continuation of treatment here, Resides at [facility]., Macrocytic anemia- labs recently by PCP. Being send to Endocrinology, Recently fell x 2 - using walker - hasnt seen PCP to discuss. Having times of pins and needles in her legs Medications Medication SIG (Take, Route, Frequency, Duration) Notes Start Date End Date Status CALCIUM 600+D 600 mg-5 mcg 1 tab(s) orally 3 times a day Active AZATHIOPRINE 50 mg A ctive PROPRANOLOL 10 mg 1 tab(s) orally 2 times a day Active GABAPENTIN 300 mg Ac tive LISINOPRIL 10 mg Act jose XANAX 0.25 mg 1 tab(s) orally 3 times a day Active Vitamin B-12 250 MCG 1 tab(s) orally once a day for 30 day(s) 09/14/2021 Active Hizentra 20% 8 GRAMS SUBCUTANEOUSLY ONCE A WEEK for 365 DAYS *Please review and pick correct strength-formula tion from A-Gas options. If intended option is not shown, discontinue and re-order from Quick Search* Active Lunesta 2 MG 1 tab(s) orally once a day (at bedtime) Active busPIRone HCl 15 MG 1 tab(s) orally Once a day 09/14/2021 Active Levothyroxine Sodium 100 MCG 1 tab(s) orally once a day Active buPROPion HCl ER (SR) 150 MG 1 tab(s) orally 2 times a day Not-Taking FLUoxetine HCl 20 MG 1 cap(s) orally once a day Active Aspirin *Please review and pick correct strength-formula tion from A-Gas options. If intended option is not shown, discontinue and re-order from Quick Search* Active Losartan Potassium 100 MG 1 tab(s) orally once a day for 30 day(s) Active Propranolol HCl 10 MG 1 tab(s) orally 2 times a day Active Gabapentin 300 MG Ac tive Lisinopril 10 MG Not -Taking Calcium 600 + D 600 MG-5 MCG 1 TAB(S) ORALLY 3 TIMES A DAY *Please review and pick correct strength-formula tion from A-Gas options. If intended option is not shown, discontinue and re-order from [employer] Search* Active azaTHIOprine 50 MG A ctive BUSPIRONE 5 mg 1 tab(s) orally tid 09/14/2021 Not-Taking VITAMIN B-12 250 mcg 1 tab(s) orally once a day for 30 day(s) 09/14/2021 Not-Taking LOSARTAN 100 mg 1 tab(s) orally once a day for 30 day(s) Not-Taking LUNESTA 2 mg 1 tab(s) orally once a day (at bedtime) Not-Taking Xanax 0.25 MG 1 tab(s) orally 3 times a day Not-Taking ASPIR 81 Active HIZENTRA 20% 8 grams subcutaneously once a week for 365 days Active LEVOTHYROXINE 100 mcg (0.1 mg) 1 tab(s) orally once a day Active MULTIVITAMIN WITH MINERALS Multiple Vitamins with Minerals 1 tab(s) orally once a day Active BUPROPION 150 mg/12 hours 1 tab(s) orally 2 times a day Active FLUOXETINE 20 mg 1 cap(s) orally once a day Active Social History Tobacco Use: Social History Observation Description Date Details (start date - stop date) Never Smoker NA - NA Sex Assigned At : Social History Observation Description Sex Assigned At Female Tobacco Control (Standard) Question Answer Notes Tobacco use: Nonsmoker Vital Signs Blood pressure systolic 142 mm Hg 04/09/20 Blood pressure diastolic 76 mm Hg 024 Respiratory Rate 17 /min 04/09/2024 Height 68 in 04/09/2024 Weight 180.4 lbs 04/09/2024 BMI 27.43 kg/m2 04/09/2024 Oximetry 100 % 04/09/2024 Encounters Encounter Location Date Provider Diagnosis [facility] [place] [address] [place] [address] 04/09/2024 Alison Banks 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 -She states she has been in good health and does not desire changing her infusions. Previosuly offered to check labs as this has not been done in 18 years except for a recent IgA and IgM. IgA was borderline low at 42 kU/L. -Previosuly attempted to obtain records from her prior statistical programmer analyst. We do not have her pre-treatment levels or her vaccination titers. She states her IgG level previously was borderline low. Recommend continuation of her treatment for now. She will continue 8 gm of Hizentra -Last trough 1100 Sent Hizentra rx. Att: Rommel - [phone]. 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 clinically stable with treatment -consider transferring rx to rheum 04/09/2024 Rash and other nonspecific skin eruption (ICD-10 - R21) Possible AKs -await Dermatology evaluation 04/09/2024 Other Plan Of Treatment Medication Medication Name Sig Start Date Stop Date Notes CALCIUM 600+D 600 mg-5 mcg 1 tab(s) orally 3 times a day AZATHIOPRINE 50 mg PROPRANOLOL 10 mg 1 tab(s) orally 2 times a day GABAPENTIN 300 mg LISINOPRIL 10 mg XANAX 0.25 mg 1 tab(s) orally 3 times a day ASPIR 81 HIZENTRA 20% 8 grams subcutaneous ly once a week for 365 days LEVOTHYROXINE 100 mcg (0.1 mg) 1 tab(s) orally once a day MULTIVITAMIN WITH MINERALS Multiple Vitamins with Minerals 1 tab(s) orally once a day BUPROPION 150 mg/12 hours 1 tab(s) orally 2 times a day FLUOXETINE 20 mg 1 cap(s) orally once a day Treatment Notes Assessment Notes Selective deficiency of immu noglobulin A [IgA] Karina has been on Hizentra SQ 8 gm weekly for almost 2 decades. -She states she has been in good health and does not desire changing her infusions. Previosuly offered to check labs as this has not been done in 18 years except for a recent IgA and IgM. IgA was borderline low at 42 kU/L. -Previosuly attempted to obtain records from her prior statistical programmer analyst. We do not have her pre-treatment levels or her vaccination titers. She states her IgG level previously was borderline low. Recommend continuation of her treatment for now. She will continue 8 gm of Hizentra -Last trough 1100 Sent Hizentra rx. Att: Rommel - [phone]. Return in 6 months for E&M Behcet's disease Continue per Rheumatology -there are studies that refractory cases of behcets have been treated with replacement immunoglobulin therapy. clinically stable with treatment -consider transferring rx to rheum Rash and other nonspecific skin eruption Possible AKs -await Dermatology evaluation Next Appt Details Follow Up: 6 Months, Reason: Evaluation and Management Provider Name:Alison Banks , 03/25/2025 12:30:00 PM, [address] [facility], [address], [place], [address], Progress Notes * Eamon GILLESPIEOB:1940 (84 yo F)Acc No.[id number]:04/09/2024 Progress Notes Patient: Karina HOLDEN Provider: Oswald Banks PA-C :1940 A ge:84 Y S ex:Female Date:04/09/2024 Address:[address], [place], [id number] Pcp:Kleber Conde Subjective: * Chief Complaints: * H istory of Behcets and IgA deficiency, on Azathioprine, receiving Hizentra SQ 8 gm weekly for the past 18 years. No issues with dosing. [facility]io Lo[facility]ace [facility]. Switched to Dr. Wade in [facility] who recommended continuation of [facility]Macrocytic anemia- labs recently by PCP. Being send to EndocrinologyRecently fell x 2 - using walker - hasnt seen PCP to discuss. 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 Karina is alone today, she resides at [facility] [place]. She was diagnosed with an immunodeficiency roughly 18 years ago. We have no records. She states the inital diagnosis of IgA deficiency with borderline low IgG was made by a Waybill Clerk at [facility] as she was unable to get into an neonatal specialist. Her Behects had lead to recurrent ulcerations in mouth, colon, and skin leading to frequent abx use. She had no history of sinopulmonary infections. She then was followed by Dr. Speedy Dalal of [facility] around 2003. Then over the last decade was followed by an IM doctor in [place] and then another provider in [place] when she moved. After her she moved to [place] in 2013. REJI Ng and Dr. Orellana has been managing since that time. She has been on the same dose of Hizentra since inital diagnosis and has not had recheck of labs. She is dosing 8 gm SQ weekly (each Saturday) through [facility] ([phone]). She has been stable since that time. She is also established with Criminal Justice Department Chair who is checking labs. Has been on Azathioprine for years. She avoids Topamax, prednisone, and morphine due to GI symptoms and dizziness. She has no complaintes today. No interval infections. Slated to have Flu shot at [place]. Today, she reports no fevers, chills, night sweats or other constitutional symptoms. * ROS: A LLERGY: Positive p er the HPI and history, otherwise unremarkable.? S PECIAL SENSES: Positve for n one. C ONSTITUTIONAL: Positive for n one. E NT: Positive p er the HPI and history, otherwise unremarkable.? R ESPIRATORY: Positive p er the HPI and history, otherwise unremakable.? O PHTHALMOLOGY: Positive for p er the HPI and history, othewise unremarkable. E NDOCRINOLOGY: Positive for n one. C ARDIOLOGY: Positive for n one. G ASTROENTEROLOGY: Positive for n one. U ROLOGY: Positive for n one. D ERMATOLOGY: Positive for p er the HPI and history, otherwise unremakable. N EUROLOGY: Positive for n one. H EMATOLOGY/LYMPH: Positive for n one. M USCULOSKELETAL: Positive for n one. P SYCHOLOGY: Positive for n one. A ll other review of systems per the HPI and history, othwise unremarkable. * Medical History: * Surgical History: C holecystectomy Hernia Repair Hysterectomy Laparoscopy; Tubal block Pacemaker Tonsillectomy * Hospitalization/Major Diagno stic Procedure: N o Hospitalization History. * Family History: F ather: , Myocardial Infarction, Emphysema, diagnosed with Heart Disease. M other: , Parkinsons. S iblings: Myocardial Infarction, Dementia, Hypertension. 1 brother(s) , 3 sister(s) . 1 son(s) - healthy. . There is no other family history of cancer, CF, diabetes, emphysema or heart disease . * Social History: A lcohol Screening Do you ever drink alcoholic beverages? N o S moking Are you a : n ever smoker T obacco Control (Standard) Tobacco use: N onsmoker * Medications: T akingCalcium 600 + D 600 MG-5 MCG TABLET 1 TAB(S) ORALLY 3 TIMES A DAY , Notes to Pharmacist: *Please review and pick correct strength-formulation from Medispan options. If intended option is not shown, discontinue and re-order from Quick Search*azaTHIOprine 50 MG Tablet Propranolol HCl 10 MG Tablet 1 tab(s) orally 2 times a day Gabapentin 300 MG Capsule FLUoxetine HCl 20 MG Capsule 1 cap(s) orally once a day Levothyroxine Sodium 100 MCG Tablet 1 tab(s) orally once a day MULTIVITAMIN WITH MINERALS MULTIPLE VITAMINS WITH MINERALS TABLET 1 TAB(S) ORALLY ONCE A DAY , Notes to Pharmacist: *Please review for potential replacement for e-prescription and drug interaction check*Aspirin , Notes to Pharmacist: *Please review and pick correct strength-formulation from A-Gas options. If intended option is not shown, discontinue and re-order from Quick Search*Losartan Potassium 100 MG Tablet 1 tab(s) orally once a day Lunesta 2 MG Tablet 1 tab(s) orally once a day (at bedtime) busPIRone HCl 15 MG Tablet 1 tab(s) orally Once a day Vitamin B-12 250 MCG Tablet 1 tab(s) orally once a day Hizentra 20% SOLUTION 8 GRAMS SUBCUTANEOUSLY ONCE A WEEK , Notes to Pharmacist: *Please review and pick correct strength-formulation from A-Gas options. If intended option is not shown, discontinue and re-order from Quick Search*Taking Calcium 600 + D 600 MG-5 MCG TABLET 1 TAB(S) ORALLY 3 TIMES A DAY , Notes to Pharmacist: *Please review and pick correct strength-formulation from A-Gas options. If intended option is not shown, discontinue and re-order from Quick Search*Taking azaTHIOprine 50 MG Tablet Taking Propranolol HCl 10 MG Tablet 1 tab(s) orally 2 times a day Taking Gabapentin 300 MG Capsule Taking FLUoxetine HCl 20 MG Capsule 1 cap(s) orally once a day Taking Levothyroxine Sodium 100 MCG Tablet 1 tab(s) orally once a day Taking MULTIVITAMIN WITH MINERALS MULTIPLE VITAMINS WITH MINERALS TABLET 1 TAB(S) ORALLY ONCE A DAY , Notes to Pharmacist: *Please review for potential replacement for e-prescription and drug interaction check*Taking Aspirin , Notes to Pharmacist: *Please review and pick correct strength-formulation from A-Gas options. If intended option is not shown, discontinue and re-order from Quick Search*Taking Losartan Potassium 100 MG Tablet 1 tab(s) orally once a day Taking Lunesta 2 MG Tablet 1 tab(s) orally once a day (at bedtime) Taking busPIRone HCl 15 MG Tablet 1 tab(s) orally Once a day Taking Vitamin B-12 250 MCG Tablet 1 tab(s) orally once a day Taking Hizentra 20% SOLUTION 8 GRAMS SUBCUTANEOUSLY ONCE A WEEK , Notes to Pharmacist: *Please review and pick correct strength-formulation from Medispan options. If intended option is not shown, discontinue and re-order from Quick Search*Not-Taking/PRNXanax 0.25 MG Tablet 1 tab(s) orally 3 times a day Lisinopril 10 MG Tablet buPROPion HCl ER (SR) 150 MG Tablet Extended Release 12 Hour 1 tab(s) orally 2 times a day XANAX 0.25 mg tablet 1 tab(s) orally 3 times a day CALCIUM 600+D 600 mg-5 mcg tablet 1 tab(s) orally 3 times a day AZATHIOPRINE 50 mg tablet PROPRANOLOL 10 mg tablet 1 tab(s) orally 2 times a day GABAPENTIN 300 mg capsule LISINOPRIL 10 mg tablet FLUOXETINE 20 mg capsule 1 cap(s) orally once a day BUPROPION 150 mg/12 hours tablet, extended release 1 tab(s) orally 2 times a day LEVOTHYROXINE 100 mcg (0.1 mg) tablet 1 tab(s) orally once a day ASPIR 81 HIZENTRA 20% solution 8 grams subcutaneously once a week LOSARTAN 100 mg tablet 1 tab(s) orally once a day LUNESTA 2 mg tablet 1 tab(s) orally once a day (at bedtime) BUSPIRONE 5 mg tablet 1 tab(s) orally tid VITAMIN B-12 250 mcg tablet 1 tab(s) orally once a day Medication List reviewed and reconciled with the patientNot- Taking/PRN Xanax 0.25 MG Tablet 1 tab(s) orally 3 times a day Not-Taking/PRN Lisinopril 10 MG Tablet Not-Taking/PRN buPROPion HCl ER (SR) 150 MG Tablet Extended Release 12 Hour 1 tab(s) orally 2 times a day Not-Taking/PRN XANAX 0.25 mg tablet 1 tab(s) orally 3 times a day Not-Taking/PRN CALCIUM 600+D 600 mg-5 mcg tablet 1 tab(s) orally 3 times a day Not-Taking/PRN AZATHIOPRINE 50 mg tablet Not-Taking/PRN PROPRANOLOL 10 mg tablet 1 tab(s) orally 2 times a day Not-Taking/PRN GABAPENTIN 300 mg capsule Not-Taking/PRN LISINOPRIL 10 mg tablet Not-Taking/PRN FLUOXETINE 20 mg capsule 1 cap(s) orally once a day Not-Taking/PRN BUPROPION 150 mg/12 hours tablet, extended release 1 tab(s) orally 2 times a day Not-Taking/PRN LEVOTHYROXINE 100 mcg (0.1 mg) tablet 1 tab(s) orally once a day Not-Taking/PRN ASPIR 81 Not-Taking/PRN HIZENTRA 20% solution 8 grams subcutaneously once a week Not-Taking/PRN LOSARTAN 100 mg tablet 1 tab(s) orally once a day Not-Taking/PRN LUNESTA 2 mg tablet 1 tab(s) orally once a day (at bedtime) Not-Taking/PRN BUSPIRONE 5 mg tablet 1 tab(s) orally tid Not-Taking/PRN VITAMIN B-12 250 mcg tablet 1 tab(s) orally once a day Medication List reviewed and reconciled with the patient * Allergies: F IORICET WITH CODEINE: vomitingMorphine: unknown reactionSEPTRA: dizzinessno[Allergies Verified] Objective: * Vitals: B P:142/76mm Hg, HR:75/min, RR:17/min, Pulse Oximetry:100%, Ht: 68 in, Wt: 180.4 lbs, BMI:27.43Index. * Examination: G eneral examination: General appearance: p leasant, well-developed, well-nourished, female, in no apparent distress. HEENT: p upils equal, round, and reactive to light and accommodation, conjunctiva are injected bilaterally, no tenderness to palpation of the sinuses, TM's without evidence of acute infection, turbinates 2+ swollen and pale inferiorly bilaterally, clear rhinorrhea is present, no polyps noted, no septal perforation, posterior oropharynx is erythematous and cobblestoning is present, erythema on pharyngeal wall, no exudates, no tongue swelling, and uvula is midline. Oral cavity: n ormal, no lesions. Neck, thyroid : s upple, non-tender, no anterior cervical lymphadenopathy. Breasts : n ot performed. Heart: R RR, S1-S2, no murmurs, no rubs, no gallops. Lungs: c lear to auscultation and percussion in all lung contreras, no wheezes or crackles. Abdomen: s oft, NT/ND, normal active bowel sounds. Neurologic exam: u nremarkable. Skin: a few scaly patches on chest and hands. Peripheral pulses: n ormal (2+) bilaterally. Back: n ormal. Extremities: n ormal ROM, no clubbing, no cyanosis, no edema. Genitalia: n ot performed. Assessment: * Assessment: 1. S elective deficiency of immunoglobulin A [IgA] - D80.2 (Primary) 2 . B ehcet's disease - M35.2 3 . R emerson and other nonspecific skin eruption - R21 Plan: * Treatment: 2. B ehcet's disease Continue AZATHIOPRINE tablet, 50 mg. Notes: Continue per Rheumatology -there are studies that refractory cases of behcets have been treated with replacement immunoglobulin therapy. clinically stable with treatment -consider transferring rx to rheum 3. R emerson and other nonspecific skin eruption Notes: Possible AKs -await Dermatology evaluation 4. O thers Continue XANAX tablet, 0.25 mg, 1 tab(s), orally, 3 times a day; C ontinue CALCIUM 600+D tablet, 600 mg-5 mcg, 1 tab(s), orally, 3 times a day; C ontinue PROPRANOLOL tablet, 10 mg, 1 tab(s), orally, 2 times a day; C ontinue GABAPENTIN capsule, 300 mg; C ontinue LISINOPRIL tablet, 10 mg; C ontinue FLUOXETINE capsule, 20 mg, 1 cap(s), orally, once a day; C ontinue BUPROPION tablet, extended release, 150 mg/12 hours, 1 tab(s), orally, 2 times a day; C ontinue LEVOTHYROXINE tablet, 100 mcg (0.1 mg), 1 tab(s), orally, once a day; C ontinue MULTIVITAMIN WITH MINERALS tablet, Multiple Vitamins with Minerals, 1 tab(s), orally, once a day; C ontinue ASPIR 81. * Procedure Codes: G 8427 DOC MEDS VERIFIED W/PT OR [id number] PREHTN/HTN BP DOC INDCD F/U DOC * Preventive Medicine: Counseling: M edication instruction: N alejandro steroid instruction: avoid septum, Watch for side effects of prescribed medications. E ducation: O ur staff spent an additional 30 minutes in direct contact with the patient educating them on their current diagnoses and proper treatment and prevention of symptoms and the proper use of medications. E ducation 2: O ur staff discussed the appropriate allergen avoidance measures and medication utilization including upper airway hygiene with daily nasal washes given the patient's clinical status and diagnoses. P atient education material sent to portal? Y es C are goal follow up plan BMI management provided Y es Above Normal BMI Follow-up D ietary management education, guidance, and counseling B P Management: FIRST HYPERTENSIVE BP READING FOLLOW-UP PLAN: F ollow-up 1 month REFERRAL TO ALTERNATIVE / PRIMARY CARE PROVIDER: R lizzyerral to general practitioner * Follow Up: 6 Months (Reason: Evaluation and Management) * Billing Information: * Visit Code: 97129 Office Visit, Est Pt., Level 4. Modifiers: 25 * Procedure Codes: G8427 DOC MEDS VERIFIED W/PT OR RE. G8950 PREHTN/HTN BP DOC INDCD F/U DOC. 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 Karina is alone today, she resides at [facility] [place]. She was diagnosed with an immunodeficiency roughly 18 years ago. We have no records. She states the inital diagnosis of IgA deficiency with borderline low IgG was made by a Waybill Clerk at [facility] as she was unable to get into an neonatal specialist. Her Behects had lead to recurrent ulcerations in mouth, colon, and skin leading to frequent abx use. She had no history of sinopulmonary infections. She then was followed by Dr. Speedy Dalal of [facility] around 2003. Then over the last decade was followed by an IM doctor in [place] and then another provider in [place] when she moved. After her she moved to [place] in 2013. REJI Ng and Dr. Orellana has been managing since that time. She has been on the same dose of Hizentra since inital diagnosis and has not had recheck of labs. She is dosing 8 gm SQ weekly (each Saturday) through [facility] ([phone]). She has been stable since that time. She is also established with Criminal Justice Department Chair who is checking labs. Has been on Azathioprine for years. She avoids Topamax, prednisone, and morphine due to GI symptoms and dizziness. She has no complaintes today. No interval infections. Slated to have Flu shot at [place]. Today, she reports no fevers, chills, night sweats or other constitutional symptoms Examination Category Sub-Category Detail Notes Category Not es General examination HEENT: pupils equal , round, and reactive to light and accommodation, conjunctiva are injected bilaterally, no tenderness to palpation of the sinuses, TM's without evidence of acute infection, turbinates 2+ swollen and pale inferiorly bilaterally, clear rhinorrhea is present, no polyps noted, no septal perforation, posterior oropharynx is erythematous and cobblestoning is present, erythema on pharyngeal wall, no exudates, no tongue swelling, and uvula is midline Neck, thyroid : supple, non-tender, no anterior cervical lymphadenopathy Heart: RRR, S1-S2, no murmu rs, no rubs, no gallops Lungs: clear to auscultatio n and percussion in all lung contreras, no wheezes or crackles Abdomen: soft, NT/ND, normal active bowel sounds Extremities: normal ROM, no clubb ing, no cyanosis, no edema General appearance: pleasant, well-devel oped, well-nourished, female, in no apparent distress Skin: a few scaly patches on chest and hands Neurologic exam: unremarkable Oral cavity: normal, no lesions Breasts : not performed Peripheral pulses: normal (2+) bilatera lly Back: normal Genitalia: not performed
--- OUTSIDE RECORDS SUMMARY | 2024-10-12 13:24 | XMS_ITS ---
Author Organization [facility] [place] ([address]) Address [address] [place] [address] Care Team Providers Care Planning Advisor Name Role Phone Kleber Conde Primary Care Provider Alison Krishnan Unavailable [phone] Allergies Allergen (clinical drug ingredient) Drug/Non Drug Allergy documented on EMR Reaction Allergy Type Onset Date Status FIORICET WITH CODEINE (uncoded) vomiting Allergy Active SEPTRA (uncoded) dizziness Allergy Act jose morphine Morphine unknown reaction Drug Allergy Active REASON FOR VISIT 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 No issues with dosing. Now serviced by [employer] [facility], Followed by Dr. Mio Lovelace of Rheumatology. Switched to Dr. Wade in [facility] who recommended continuation of treatment here, Resides at [facility]., Macrocytic anemia- labs recently by PCP. Being send to Endocrinology, Recently fell x 2 - using walker - hasnt seen PCP to discuss. Having times of pins and needles in her legs Medications Medication SIG (Take, Route, Frequency, Duration) Notes Start Date End Date Status LUNESTA 2 mg 1 tab(s) orally once a day (at bedtime) Not-Taking BUSPIRONE 5 mg 1 tab(s) orally tid 09/14/2021 Not-Taking HIZENTRA 20% 8 grams subcutaneously once a week for 365 days Not-Taking LOSARTAN 100 mg 1 tab(s) orally once a day for 30 day(s) Not-Taking VITAMIN B-12 250 mcg 1 tab(s) orally once a day for 30 day(s) 09/14/2021 Not-Taking Losartan Potassium 100 MG 1 tab(s) orally once a day for 30 day(s) Not-Taking Vitamin B-12 250 MCG 1 tab(s) orally once a day for 30 day(s) 09/14/2021 Not-Taking Lisinopril 10 MG Not -Taking busPIRone HCl 15 MG 1 tab(s) orally Once a day 09/14/2021 Active Hizentra 20% 8 GRAMS SUBCUTANEOUSLY ONCE A WEEK for 365 DAYS *Please review and pick correct strength-formula tion from [employer] options. If intended option is not shown, discontinue and re-order from Quick Search* Active buPROPion HCl ER (SR) 150 MG 1 tab(s) orally 2 times a day Active Levothyroxine Sodium 100 MCG 1 tab(s) orally once a day Active FLUoxetine HCl 20 MG 1 cap(s) orally once a day Active Aspirin *Please review and pick correct strength-formula tion from [employer] options. If intended option is not shown, discontinue and re-order from Quick Search* Active Lunesta 2 MG 1 tab(s) orally once a day (at bedtime) Active azaTHIOprine 50 MG A ctive Propranolol HCl 10 MG 1 tab(s) orally 2 times a day Active Gabapentin 300 MG Ac tive MULTIVITAMIN WITH MINERALS Multiple Vitamins with Minerals 1 tab(s) orally once a day Active ASPIR 81 Active LISINOPRIL 10 mg Act jose FLUOXETINE 20 mg 1 cap(s) orally once a day Active BUPROPION 150 mg/12 hours 1 tab(s) orally 2 times a day Active Calcium 600 + D 600 MG-5 MCG 1 TAB(S) ORALLY 3 TIMES A DAY *Please review and pick correct strength-formula tion from [employer] options. If intended option is not shown, discontinue and re-order from Quick Search* Active LEVOTHYROXINE 100 mcg (0.1 mg) 1 tab(s) orally once a day Active AZATHIOPRINE 50 mg A ctive PROPRANOLOL 10 mg 1 tab(s) orally 2 times a day Active GABAPENTIN 300 mg Ac tive XANAX 0.25 mg 1 tab(s) orally 3 times a day Active CALCIUM 600+D 600 mg-5 mcg 1 tab(s) orally 3 times a day Active Social History Tobacco Use: Social History Observation Description Date Details (start date - stop date) Never Smoker NA - NA Sex Assigned At : Social History Observation Description Sex Assigned At Female Tobacco Control (Standard) Question Answer Notes Tobacco use: Nonsmoker Problems Problem Type SNOMED Code ICD Code Onset Dates Problem Status W/U Status Risk Notes Problem Hypogammaglobulinemi a ([id number]) 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 Vital Signs Blood pressure systolic 144 mm Hg 10/02/19 25 Blood pressure diastolic 71 mm Hg 025 Height 68 in 10/01/2024 Weight 172.2 lbs 10/01/2024 BMI 26.18 kg/m2 10/01/2024 Oximetry 97 % 10/01/2024 0 Encounters Encounter Location Date Provider Diagnosis [facility] [address] [facility] [address] [place] [address] 10/01/2024 Alison Banks 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 Mainly for Bechets but also was diagnosed with hypogammaglobuli nemia -She states she has been in good health and does not desire changing her infusions. Started immune replacement with her last baseball winder. Previosuly offered to check labs as this has not been done in 18 years except for a recent IgA and IgM. IgA was borderline low at 42 kU/L. -Previosuly attempted to obtain records from her prior baseball winder. We do not have her pre-treatment levels or her vaccination titers. She states her IgG level previously was borderline low. Recommend continuation of her treatment for now. She will continue 8 gm of Hizentra -Last trough 1100 Sent Hizentra rx. Att: Rommel - [phone]. 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 clinically stable with treatment -with late dosing she experiences oral ulcers 10/01/2024 Rash and other nonspecific skin eruption (ICD-10 - R21) Possible AKs -await Dermatology evaluation 10/01/2024 Other Plan Of Treatment Medication Medication Name Sig Start Date Stop Date Notes MULTIVITAMIN WITH MINERALS Multiple Vitamins with Minerals 1 tab(s) orally once a day ASPIR 81 LISINOPRIL 10 mg FLUOXETINE 20 mg 1 cap(s) orally once a day BUPROPION 150 mg/12 hours 1 tab(s) orall y 2 times a day LEVOTHYROXINE 100 mcg (0.1 mg) 1 tab(s) orally once a day AZATHIOPRINE 50 mg PROPRANOLOL 10 mg 1 tab(s) orally 2 ti mes a day GABAPENTIN 300 mg XANAX 0.25 mg 1 tab(s) orally 3 ti mes a day CALCIUM 600+D 600 mg-5 mcg 1 tab(s) oral ly 3 times a day Treatment Notes Assessment Notes Nonfamilial hypogammaglobulinemia Karina has been on Hizentra SQ 8 gm weekly for almost 2 decades. Mainly for Bechets but also was diagnosed with hypogammaglobulinemia -She states she has been in good health and does not desire changing her infusions. Started immune replacement with her last baseball winder. Previosuly offered to check labs as this has not been done in 18 years except for a recent IgA and IgM. IgA was borderline low at 42 kU/L. -Previosuly attempted to obtain records from her prior baseball winder. We do not have her pre-treatment levels or her vaccination titers. She states her IgG level previously was borderline low. Recommend continuation of her treatment for now. She will continue 8 gm of Hizentra -Last trough 1100 Sent Hizentra rx. Att: Rommel - [phone]. Return in 6 months for E&M Behcet's disease Continue per Rheumatology -there are studies that refractory cases of behcets have been treated with replacement immunoglobulin therapy. clinically stable with treatment -with late dosing she experiences oral ulcers Rash and other nonspecific skin eruption Possible AKs -await Dermatology evaluation Pending Test Test Name Order Date -Immunoglobulin G, Qn, Serum 10/01/2024 Next Appt Details Follow Up: 6 Months, Reason: Evaluation and Management Provider Name:Alison Stacy Darren , 03/25/2025 12:30:00 PM, [address] [facility], [address], [place], [address], Progress Notes * Eamon GILLESPIEOB:1940 (84 yo F)Acc No.[id number]:10/01/2024 Progress Notes Patient: Karina HOLDEN Provider: Oswald Banks PA-C :1940 A ge:84 Y S ex:Female Date:10/01/2024 Address:[address] [place] [address], [address] Pcp:Kleber Conde Subjective: * Chief Complaints: * H istory of Behcets and Hypogam (vs. possible CVID), on Azathioprine, receiving Hizentra SQ 8 gm weekly for the past 21 years. No issues with dosing. [facility] Mio Lovelace of Rheumatology. Switched to Dr. Wade in [facility] who recommended continuation of treatment here[facility].Macrocytic anemia- labs recently by PCP. Being send to EndocrinologyRecently fell x 2 - using walker - hasnt seen PCP to discuss. 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 Karina is alone today, she resides at [facility]. She was diagnosed with an immunodeficiency roughly 18 years ago. We have no records. She states the inital diagnosis of IgA deficiency with borderline low IgG was made by a [employer] Knitting Machine Operator at [facility] as she was unable to get into an occupational medicine specialist. Her Behects had lead to recurrent ulcerations in mouth, colon, and skin leading to frequent abx use. She had no history of sinopulmonary infections. She then was followed by Dr. Speedy Dalal of [facility] around 2003. Then over the last decade was followed by an IM doctor in [place] and then another provider in [place] when she moved. After her she moved to [place] in 2012. REJI Ng and Dr. Orellana has been managing since that time. She has been on the same dose of Hizentra since inital diagnosis and has not had recheck of labs. She is dosing 8 gm SQ weekly (each Saturday) through [employer] ([phone]). She has been stable since that time. She is also established with [employer] who is checking labs. Has been on Azathioprine for years. She avoids Topamax, prednisone, and morphine due to GI symptoms and dizziness. She has no complaintes today. No interval infections. Slated to have Flu shot at [facility]. Today, she reports no fevers, chills, night [...] Pacemaker Tonsillectomy * Hospitalization/Major Diagno stic Procedure: D enies Past Hospitalization * Family History: F ather: , Myocardial [...] *Please review and pick correct strength-formulation from [employer] options. If intended option is not shown, discontinue and re-order from Quick Search*azaTHIOprine 50 MG Tablet Propranolol HCl 10 MG Tablet 1 tab(s) orally 2 times a day Gabapentin 300 MG Capsule FLUoxetine HCl 20 MG Capsule 1 cap(s) orally once a day buPROPion HCl ER (SR) 150 MG Tablet Extended Release 12 Hour 1 tab(s) orally 2 times a day Levothyroxine Sodium 100 MCG Tablet 1 tab(s) orally once a day Aspirin , Notes to Pharmacist: *Please review and pick correct strength-formulation from [employer] options. If intended option is not shown, discontinue and re-order from Quick Search*Lunesta 2 MG Tablet 1 tab(s) orally once a day (at bedtime) busPIRone HCl 15 MG Tablet 1 tab(s) orally Once a day Hizentra 20% SOLUTION 8 GRAMS SUBCUTANEOUSLY ONCE A WEEK , Notes to Pharmacist: *Please review and pick correct strength-formulation from [employer] options. If intended option is not shown, discontinue and re-order from Quick Search*Taking Calcium 600 + D 600 MG-5 MCG TABLET 1 TAB(S) ORALLY 3 TIMES A DAY , Notes to Pharmacist: *Please review and pick correct strength-formulation from [employer] options. If intended option is not shown, discontinue and re-order from Quick Search*Taking azaTHIOprine 50 MG Tablet Taking Propranolol HCl 10 MG Tablet 1 tab(s) orally 2 times a day Taking Gabapentin 300 MG Capsule Taking FLUoxetine HCl 20 MG Capsule 1 cap(s) orally once a day Taking buPROPion HCl ER (SR) 150 MG Tablet Extended Release 12 Hour 1 tab(s) orally 2 times a day Taking Levothyroxine Sodium 100 MCG Tablet 1 tab(s) orally once a day Taking Aspirin , Notes to Pharmacist: *Please review and pick correct strength- formulation from [employer] options. If intended option is not shown, discontinue and re-order from Quick Search*Taking Lunesta 2 MG Tablet 1 tab(s) orally once a day (at bedtime) Taking busPIRone HCl 15 MG Tablet 1 tab(s) orally Once a day Taking Hizentra 20% SOLUTION 8 GRAMS SUBCUTANEOUSLY ONCE A WEEK , Notes to Pharmacist: *Please review and pick correct strength-formulation from [employer] options. If intended option is not shown, discontinue and re-order from Quick Search*Not-Taking/PRNLisinopril 10 MG Tablet Losartan Potassium 100 MG Tablet 1 tab(s) orally once a day Vitamin B-12 250 MCG Tablet 1 tab(s) orally once a day XANAX 0.25 mg tablet 1 [...] tablet 1 tab(s) orally once a day MULTIVITAMIN WITH MINERALS Multiple Vitamins with Minerals tablet 1 tab(s) orally once a day ASPIR 81 HIZENTRA 20% solution 8 grams subcutaneously once a week LOSARTAN 100 mg tablet 1 tab(s) orally once a day LUNESTA 2 mg tablet 1 tab(s) orally once a day (at bedtime) BUSPIRONE 5 mg tablet 1 tab(s) orally tid VITAMIN B-12 250 mcg tablet 1 tab(s) orally once a day Not-Taking/PRN Lisinopril 10 MG Tablet Not-Taking/PRN Losartan Potassium 100 MG Tablet 1 tab(s) orally once a day Not-Taking/PRN Vitamin B-12 250 MCG Tablet 1 tab(s) orally once a day Not-Taking/PRN XANAX 0.25 mg tablet 1 tab(s) orally 3 times a day Not-Taking/PRN CALCIUM 600+D 600 mg-5 mcg tablet 1 tab(s) orally 3 times a day Not-Taking/PRN AZATHIOPRINE 50 mg tablet Not-Taking/PRN PROPRANOLOL 10 mg tablet 1 tab(s) orally 2 times a day Not-Taking/PRN GABAPENTIN 300 mg capsule Not- Taking/PRN LISINOPRIL 10 mg tablet Not-Taking/PRN FLUOXETINE 20 mg capsule 1 cap(s) orally once a day Not-Taking/PRN BUPROPION 150 mg/12 hours tablet, extended release 1 tab(s) orally 2 times a day Not-Taking/PRN LEVOTHYROXINE 100 mcg (0.1 mg) tablet 1 tab(s) orally once a day Not-Taking/PRN MULTIVITAMIN WITH MINERALS Multiple Vitamins with Minerals tablet 1 tab(s) orally once a day Not-Taking/PRN ASPIR 81 Not- Taking/PRN HIZENTRA 20% solution 8 grams subcutaneously once a week Not-Taking/PRN LOSARTAN 100 mg tablet 1 tab(s) orally once a day Not-Taking/PRN LUNESTA 2 mg tablet 1 tab(s) orally once a day (at bedtime) Not-Taking/PRN BUSPIRONE 5 mg tablet 1 tab(s) orally tid Not-Taking/PRN VITAMIN B-12 250 mcg tablet 1 tab(s) orally once a day DiscontinuedXanax 0.25 MG Tablet 1 tab(s) orally 3 times a day Medication List reviewed and reconciled with the patientDiscontinued Xanax 0.25 MG Tablet 1 tab(s) orally 3 times a day Medication List reviewed and reconciled with the patient * Allergies: F IORICET WITH CODEINE: vomitingMorphine: unknown reactionSEPTRA: dizzinessno[Allergies Verified] Objective: * Vitals: B P:144/71mm Hg, HR:69/min, Pulse Oximetry:97%, Ht: 68 in, Wt: 172.2 lbs, BMI:26.18Index. 0. * Examination: G eneral examination: General appearance: [...] n ot performed. Assessment: * Assessment: 1. N onfamilial hypogammaglobulinemia - D80.1 (Primary) 2 . 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 B ehcet's disease - M35.2 ? 4 . R emerson and other nonspecific skin eruption - R21 Plan: * Treatment: 2. S elective deficiency of immunoglobulin A [IgA] L AB: -Immunoglobulin G, Qn, Serum 3. B ehcet's disease Continue AZATHIOPRINE tablet, 50 mg. Notes: Continue per Rheumatology -there are studies that refractory cases of behcets have been treated with replacement immunoglobulin therapy. clinically stable with treatment -with late dosing she experiences oral ulcers 4. R emerson and other nonspecific skin eruption Notes: Possible AKs -await Dermatology evaluation 5. O thers Continue XANAX tablet, 0.25 mg, [...] G 8427 DOC MEDS VERIFIED W/PT OR RE * Preventive Medicine: Counseling: M edication instruction: [...] TO ALTERNATIVE / PRIMARY CARE PROVIDER: R raheemal to general practitioner * Follow Up: 6 Months (Reason: Evaluation and Management) * Billing Information: * Visit Code: 45758 Office Visit, Est Pt., Level 4. Modifiers: 25 * Procedure Codes: G8427 DOC MEDS VERIFIED W/PT OR RE. * Sign off status: Completed true * Provider: Oswald Banks PA-C Date: 10/01/2024 Generated for Rolando garcia/Rodolfo/Sparkle on: 0 10/12/2024 01:24 PM CDT History [...] Karina is alone today, she resides at [facility]. She was diagnosed with an immunodeficiency roughly 18 years ago. We have no records. She states the inital diagnosis of IgA deficiency with borderline low IgG was made by a [employer] Knitting Machine Operator at [facility] as she was unable to get into an occupational medicine specialist. Her Behects had lead to recurrent ulcerations in mouth, colon, and skin leading to frequent abx use. She had no history of sinopulmonary infections. She then was followed by Dr. Speedy Dalal of [facility] around 2003. Then over the last decade was followed by an IM doctor in [place] and then another provider in [place] when she moved. After her she moved to [place] in 2012. REJI Ng and Dr. Orellana has been managing since that time. She has been on the same dose of Hizentra since inital diagnosis and has not had recheck of labs. She is dosing 8 gm SQ weekly (each Saturday) through [employer] ([phone]). She has been stable since that time. She is also established with [employer] who is checking labs. Has been on Azathioprine for years. She avoids Topamax, prednisone, and morphine due to GI symptoms and dizziness. She has no complaintes today. No interval infections. Slated to have Flu shot at [facility]. Today, she reports no fevers, chills, night [...]
--- OUTSIDE RECORDS SUMMARY | 2024-10-12 13:24 | XMS_ITS | Clinical Summary ---
Author Organization [facility] Address Formerly [facility] [place] [address] Care Team Providers Care Paint Coating Machine Operator Name Role Phone Kleber Conde DO Primary Care Provider + Allergies Active Allergy Reactions Criticality Noted Date Comments Ldjxblyumj-Kseg-Utul-Cod Nausea and Vomiting Clonazepam Hives,Unknown 09/16/2020 Codeine Nausea Only 06/20/2023 Morphine Unknown,Rash Low 09/16/2020 Olanzapine Unknown 06/20/2023 Prednisone Unknown,Other (see comment) Low 09/16/2020 hypertension, headache, Sulfamethoxazole-Trimethop rim Dizziness 09/16/2020 Sulfamethoxazole Unknown 06/20/2023 Topiramate Unknown 09/16/2020 Trimethoprim Unknown 06/20/2023 Medications aspirin EC 81 MG tabletIndicatio ns:Aspirin Therapy Take 1 tablet (81 mg total) by mouth daily. Indications: Treatment with Aspirin Active immune globulin, Human, (HIZENTRA) 4 GM/20ML SolutionIndicat ions:Autoimmune Disease Inject into the skin every 7 days. Indications: Autoimmune Disease Each leg Active Multiple Vitamin (MULTIVITAMIN ADULT) TabIndications: Nutritional Support Take 1 tablet by mouth daily. Indications: Nutritional Support Active Cyanocobalamin (VITAMIN B-12) 2500 MCG SL TabIndications: Vitamin B Deficiency Place 1 tablet under the tongue daily. Indications: Vitamin B Deficiency Active azaTHIOprine 50 MG tabletIndicatio ns:Autoimmune Disease Take 2 tablets(100 mg) in the morning and 1 tablet (50 mg) at night 90 tablet 022 Active Cholecalciferol (VITAMIN D) 50 MCG (2000 UT) TabIndications: Vitamin D Deficiency Take by mouth daily. Indications: Vitamin D Deficiency Active Zinc 50 MG CapIndications: Nutritional Support Take by mouth daily. Indications: Nutritional Support Active VITAMIN E ORIndications:V itamin and/or Mineral Deficiency Take 450 mg by mouth daily. Indications: Vitamin and/or Mineral Deficiency Active STOOL SOFTENER 100 MG capsuleIndicati ons:Constipatio n [The details of the medication are not available because there are pending changes by a home health clinician.] 90 capsule 022 Active Additional Information Patient taking differently: TAKE 2 CAPSULE BY MOUTH TWICE DAILY PRN, Reported on 09/21/2024 atorvastatin (LIPITOR) 80 MG tabletIndicatio ns:Blood Cholesterol Abnormal Take 1 tablet (80 mg total) by mouth daily. Indications: Blood Cholesterol Abnormal 022 Active calcium carb-cholecalci ferol (CALTRATE+D) 600-10 MG-MCG Tab tabletIndicatio ns:Calcium Deficiency [The details of the medication are not available because there are pending changes by a home health clinician.] 180 tablet 023 Active Additional Information Patient taking differently: (No indications reported), Reported on 09/21/2024 busPIRone (BUSPAR) 15 MG tabletIndicatio ns:Anxiety,Depr ession Take 1 tablet (15 mg total) by mouth 3 (three) times daily. Indications: Depression, Feeling Anxious 023 Active EPINEPHrine 0.3 MG/0.3ML injectionIndica tions:Allergic Reaction Injection 024 Active losartan (COZAAR) 100 MG tabletIndicatio ns:Hypertension Take 1 tablet (100 mg total) by mouth daily. 90 tablet 3 024 Active bisacodyl EC (DULCOLAX) 5 MG Tab EC tabletIndicatio ns:Constipation Take 1 tablet (5 mg total) by mouth as needed. Indications: Constipation Active diphenhydrAMINE -APAP (TYLENOL PM EXTRA STRENGTH) 25-500 MG Tab tabletIndicatio ns:Pain Take 1 tablet by mouth as needed. Indications: Pain Active Cranberry-Vitam in C-Probiotic (AZO CRANBERRY OR)Indications: Bladder Dysfunction Take 1 Piece of gum by mouth as needed. Indications: Dysfunction of the Urinary Bladder Active fish oil (OMEGA-3 FATTY ACID) 1000 MG Cap capsuleIndicati ons:Vitamin and/or Mineral Deficiency Take 1 capsule (1,000 mg total) by mouth daily. Indications: Vitamin and/or Mineral Deficiency Active Multiple Vitamins-Minera ls (PRESERVISION AREDS 2 OR)Indications: Vitamin and/or Mineral Deficiency Take 1 tablet by mouth daily. Indications: Vitamin and/or Mineral Deficiency Active Biotin 5000 MCG CapIndications: Vitamin and/or Mineral Deficiency Take 1 capsule by mouth daily. Indications: Vitamin and/or Mineral Deficiency Active D-Mannose 500 MG CapIndications: Vitamin and/or Mineral Deficiency Take 1 capsule by mouth daily. Indications: Vitamin and/or Mineral Deficiency Active OXYGENIndicatio ns:Shortness of breath 2 L/min by Nasal route as needed. Indications: Shortness of breath Active Misc. 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 Indications: Disturbed Sleep 30 tablet 2 025 Active FLUoxetine (PROZAC) 40 MG capsuleIndicati ons:Mild episode of recurrent major depressive disorder Take 1 capsule (40 mg total) by mouth daily. 90 capsule 1 Active omeprazole (PRILOSEC) 40 MG capsuleIndicati ons:Hiatal hernia Take 1 capsule (40 mg total) by mouth daily. 30 capsule 2 025 2024 Discontinued propranolol LA (INDERAL LA) 60 MG 24 hr capsuleIndicati ons:Primary hypertension Take 1 capsule (60 mg total) by mouth daily. 30 capsule 2 025 2024 Discontinued FLUoxetine HCl 60 MG TabIndications: Mild episode of recurrent major depressive disorder,ENRIKE (generalized anxiety disorder) Take 0.5 tablets by mouth daily. 45 tablet 025 2024 Discontinued(D ose adjustment) Eszopiclone 3 MG TabIndications: Sleep Disturbance Take 3 mg by mouth nightly at bedtime. Indications: Disturbed Sleep 30 tablet 025 2024 Discontinued(R eorder) Active Problems Problem Noted Date Diagnosed Date Gastroesophageal reflux dise ase, unspecified whether esophagitis present 09/21/2024 Hyperparathyroidism ([facility]) 03/10/2024 Primary insomnia 10/24/2023 Cervical myelopathy (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/2020 Chronic kidney disease 09/16/2020 Dyslipidemia 09/16/2020 Hypothyroidism 09/16/2020 Anxiety 08/03/2017 Macrocytic anemia 07/15/2014 Resolved Problems Problem Noted Date Diagnosed Date Resolved Date Cataracts, bilateral 07/01/2023 024 Interstitial cystitis 09/16/20202024 Chronic UTI 09/16/2020 07/01/2023 Major depressive disorder, s melania episode, unspecified 09/16/2020 02/21/2022 Encounters Date Type Department Care Team Description 09/23/2024 Scan [facility] Scanned, Doc Med Group 09/21/2024 2:20 PM CDT Office Visit [facility] Family & Internal Medicine [address] [address] Kleber Conde P, DO Hypertension (The patient presents for 3 month follow up. /The patient is in need a refill of lunesta ) 09/21/2024 Travel 09/03/2024 Scan [facility] INFO SRVCS Scanned, Doc Med Group from Last 3 Months Immunizations Immunization Administration Dates Next Due Fluzone High Dose - >Age 65 (Prefilled Syringe) 04/16/2022,03/13/2021 Influenza (Generic) 03/17/2020,03/11/2015,2013 Influenza Adult (Generic) 03/17/2023,06/2014,03/11/2015,2013 MODERNA COVID-19 (12+) MRNA, LNP-S, PF, 100 MCG/ 0.5 ML DOSE 05/09/2021,07/18/2020,06/21/2020,2019 Pneumococcal (Pneumovax 23) 06/06/2013, 3 Pneumococcal (Prevnar 13) 03/21/2017 Zoster (Zostavax) 63704 Unt/0.65Ml 01/26/2013 Family History Medical History Relation Comments Depression Brother Heart Disease Brother Mental Health Brother CHF Father Depression Father Heart Disease Father Hypertension Mother All my family reyes d high blood pressure Parkinson's Disease Mother Arthritis Sister 1 Depression Sister 2 Miscarriages / Stillbirths Sister 2 Relation Status Comments Brother Father Mother Sister 1 Sister 2 Social History Tobacco Use Types Packs/Day Years Used Date Smoking Tobacco: Never Smokeless Tobacco: Never Tobacco Cessation:Counseling Given: Not Answered Alcohol Use Standard Drinks/Week Comments Never 0 [...] Answer Date Recorded Patient Health Questionnaire-2 Score 1 06/23/2024 Comments No Sex and Gender Information Value Date Recorded Sex Assigned at Female 06/23/2024 1:08 PM GUNNER'S MATE G Legal Sex Female 9:29 AM CDT Gender Identity Female 06/09/2021 8:11 AM GUNNER'S MATE G Sexual Orientation Straight 06/09/2021 8: 11 AM GUNNER'S MATE G Last Filed Vital Signs Vital Sign Reading Time Taken Comments Blood Pressure 120/84 09/21/2024 2:30 PM CDT Pulse 72 09/21/2024 2:30 PM CDT Temperature 36.2 C (97.1 F) 09/21/2024 2:30 PM CDT Respiratory Rate 16 09/21/2024 2:30 PM CDT Oxygen Saturation 98% 09/21/2024 2:30 PM CDT Inhaled Oxygen Concentration - - Weight 77.7 kg (171 lb 6.4 oz) 09/21/2024 2:30 P M CDT Height 172.7 cm (5' 8 ) 09/21/2024 2:30 PM CDT Body Mass Index 26.06 09/21/2024 2:30 PM CDT Plan of Treatment Upcoming Encounters Date Type Department Care Team (Late st Contact Info) Description 12/29/2024 11:20 AM CDT Office Visit [facility] Family & Internal Medicine - [place] [address] [place] [address] Kleber Conde DO [facility] [place] [address] Health Maintenance Due Date Last Done Comments Annual Medicare Wellness Visit 02/14/2004 COVID-19 Vaccine ( season) 2025 05/09/2021, 07/18/2020, 06/21/2020, Additional history exists Postponed from 02/16/2024 (Vaccine Shortage) DTaP, Tdap and Td Vaccines (1 - Tdap) 09/21/2025 Postponed from 1958 (No Insurance Coverage) RSV Immunization or 60+ Years (1 - 1-dose 75+ series) 09/21/2025 Postponed from 2014 (Going to Outside Clinic) Zoster Vaccines (1 of 2) 09/21/2025 01/26/2013 Pos tponed from 03/23/2013 (Going to Outside Clinic) Pneumococcal Vaccine: 50+ Years Completed 03/21/2017, 06/06/2013, 01/15/2013 PHQ-2 (Physician [place]) Completed 06/23/2024 Meningococcal B Vaccine Aged Out No l onger eligible based on patient's age to complete this topic Meningococcal Vaccine Aged Out No isauro kay eligible based on patient's age to complete this topic RSV Immunizations Under 20 Months Aged Out No longer eligible based on patient's age to complete this topic Procedures Procedure Name Priority Date/Time Associated Diagnosis Comments LIPID PANEL Routine 09/21/2024 3:47 PM CDT Dyslipidemia COLLECTION VENOUS BLOOD VENIPUNCTURE Routine 09/21/2024 3:46 PM CDT Dyslipidemia from Last 3 Months Results * LIPID PANEL (09/21/2024 3:47 PM CDT) CHOLESTEROL 148 <200 MG/DL 09/21/2024 7:46 PM CDT [facility] TRIGLYCERIDES 95 <150 MG/DL 09/21/2024 7:46 PM CDT [facility] HDL 60 >40 MG/DL 09/21/2024 7:46 PM CDT [facility] LDL-C 69 <100 MG/DL 09/21/2024 7:46 PM CDT [facility] VLDL CALCULATION 19 5 - 28 MG/DL 09/21/2024 7:46 PM CDT [facility] CHOL/HDL RATIO 2.5 0.0 - 4.0 09/21/2024 7:46 PM CDT [facility] LDL/HDL 1.2 0.41 - 2.13 09/21/2024 7:46 PM CDT [facility] NON HDL CHOLESTEROL 88 <140 MG/DL 09/21/2024 7:46 PM CDT [facility] 09/21/2024 3:47 PM CDT Kleber Conde DO LABORATORY Final Re sult [facility] [address] [place] [address], [place] [phone] from Last 3 Months Insurance MEDICARE [facility] Advance Directives Documents on File Type Date Recorded Patient 2Nd Pressman Expl anation DNR (Do Not Resuscitate) Documentation 09/16/2020 10:18 AM POLST * Full Code (Latest Code Status on File) Date Activated Date Inactivated Comments 12/17/2023 4:09 PM Care Teams Paint Coating Machine Operator Relationship Specialty Start Date End Date Kleber Conde DO [address] [place] [id number] PCP - General FAMILY PRACTICE 06/24/23
--- OUTSIDE RECORDS SUMMARY | 2024-10-12 13:24 | XMS_ITS | Referral Summary ---
Author Organization [facility] [address] [facility] Address [address] [place] [address] Care Team Providers Care Coagulating Drying Supervisor Name Role Phone Kleber Conde Primary Care Provide r Jasmeet Wade MD Unavailable [phone] Allergies Active Allergy Reactions Criticality Noted Date Comments Allglysdse-Euevpswkpj-Vpi- Cod Nausea And Vomiting 05/25/2021 Clonazepam Hives,Unknown [...] 07/06/2024 Assessment & Plan (07/06/2024 3:15 PM ACCOUNT SOLUTIONS ANALYST): Pain with palpation in the left upper chest just lateral to her pacemaker. No erythema or fluctuance. Denies fevers. Advised to contact her head silverman. 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 She is currently well [...] Sooner if needed. Seen with Dr. Wade. Social History Tobacco Use Types Packs/Day Years Used Date Smoking Tobacco: Never Tobacco Cessation:Counseling Given: Not Answered Comments Unknown Sex and Gender Information Value Date Recorded Sex Assigned at Not on file Legal Sex Female 6:42 PM ACCOUNT SOLUTIONS ANALYST Gender Identity Not on file Sexual Orientation Not on file Last Filed Vital Signs Vital Sign Reading Time Taken Comments Blood Pressure 128/84 07/06/2024 1:20 PM ACCOUNT SOLUTIONS ANALYST Pulse 69 07/06/2024 1:20 PM ACCOUNT SOLUTIONS ANALYST Temperature - - Respiratory Rate - - Oxygen Saturation 93% 07/06/2024 1:20 PM ACCOUNT SOLUTIONS ANALYST Inhaled Oxygen Concentration - - Weight 78.5 kg (173 lb) 07/06/2024 1:20 PM ACCOUNT SOLUTIONS ANALYST Height 172.7 cm (5' 8 ) 07/06/2024 1:20 PM ACCOUNT SOLUTIONS ANALYST Body Mass Index 26.3 07/06/2024 1:20 PM ACCOUNT SOLUTIONS ANALYST Plan of Treatment Not on file Insurance MEDICARE MEDICARE [employer] [facility] [employer] Care Teams Coagulating Drying Supervisor Relationship Specialty Start Date End Date Kleber Conde DO [address] [place] [id number] PCP - General Family Medicine 08/30/23 Jasmeet Wade MD [address] [place] [address] Consulting Physician Rheumatology 08/30/23
--- OUTSIDE RECORDS SUMMARY | 2024-10-12 13:25 | XMS_ITS | Patient Health Record ---
Author Organization [facility] [place] ([address]) Address [address] [place] [address] Care Team Providers Care Building Maintenance Worker Name Role Phone Kleber Conde Primary Care Provider Alison Krishnan Unavailable [phone] [employer], Provider Unavailable Unavailab le Allergies Allergen (clinical drug ingredient) Drug/Non Drug Allergy documented on EMR Reaction Allergy Type Onset Date Status FIORICET WITH CODEINE (uncoded) vomiting Allergy Active SEPTRA (uncoded) dizziness Allergy Act jose morphine Morphine unknown reaction Drug Allergy Active Reason For Referral No Information Medications Medication SIG (Take, Route, Frequency, Duration) Notes Start Date End Date Status azaTHIOprine 50 MG A ctive Propranolol HCl 10 MG 1 tab(s) orally 2 times a day Active buPROPion HCl ER (SR) 150 MG 1 tab(s) orally 2 times a day Active LUNESTA 2 mg 1 tab(s) orally once a day (at bedtime) Not-Taking Levothyroxine Sodium 100 MCG 1 tab(s) orally once a day Active BUSPIRONE 5 mg 1 tab(s) orally tid 09/14/2021 Not-Taking Gabapentin 300 MG Ac tive HIZENTRA 20% 8 grams subcutaneously once a week for 365 days Not-Taking FLUoxetine HCl 20 MG 1 cap(s) orally once a day Active LOSARTAN 100 mg 1 tab(s) orally once a day for 30 day(s) Not-Taking busPIRone HCl 15 MG 1 tab(s) orally Once a day 09/14/2021 Active Hizentra 20% 8 GRAMS SUBCUTANEOUSLY ONCE A WEEK for 365 DAYS *Please review and pick correct strength-formula tion from [employer] options. If intended option is not shown, discontinue and re-order from Quick Search* Active XANAX 0.25 mg 1 tab(s) orally 3 times a day Active Aspirin *Please review and pick correct strength-formula tion from [employer] options. If intended option is not shown, discontinue and re-order from Quick Search* Active VITAMIN B-12 250 mcg 1 tab(s) orally once a day for 30 day(s) 09/14/2021 Not-Taking CALCIUM 600+D 600 mg-5 mcg 1 tab(s) orally 3 times a day Active Lunesta 2 MG 1 tab(s) orally once a day (at bedtime) Active AZATHIOPRINE 50 mg A ctive PROPRANOLOL 10 mg 1 tab(s) orally 2 times a day Active GABAPENTIN 300 mg Ac tive Losartan Potassium 100 MG 1 tab(s) orally once a day for 30 day(s) Not-Taking Vitamin B-12 250 MCG 1 tab(s) orally once a day for 30 day(s) 09/14/2021 Not-Taking Lisinopril 10 MG Not -Taking MULTIVITAMIN WITH MINERALS Multiple Vitamins with Minerals [...] review and pick correct strength-formula tion from [employer] options. 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 Problem Hypothyroidism (33361600) Hypothyroidism, unspecified (E03.9) Active confirmed Problem Anxiety disorder (834517211) Anxiety disorder, unspecified (F41.9) Active confirmed Problem Polyneuropathy (82328281) Polyneuropathy, unspecified (G62.9) Active confirmed Problem Chronic allergic conjunctivitis (29454670) Other chronic allergic conjunctivitis (H10.45) Active confirmed Problem Pain of ear (finding ) (598023531) Otalgia, unspecified ear (H92.09) Active confirmed Problem Allergic rhinitis (28702659) Other allergic rhinitis (J30.89) Active confirmed Problem Alopecia (37647114) Nonscarring hair loss, unspecified (L65.9) Active confirmed Problem Behcet's disease (711709802) 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 Problem 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 (49979433) Other intervertebral disc displacement, 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 confirmed Problem Essential hypertensi on (10679163) Essential (primary) hypertension (I10) Active confirmed Problem 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 Problem Headache (47632692) Headache, unspecified (R51.9) Active confirmed Vital Signs Respiratory Rate 17 /min 04/09/2024 Oximetry 97 % 10/01/2024 0 Blood pressure diastolic 71 mm Hg 10/01/2024 0 Height 68 in 10/01/2024 0 Blood pressure systolic 144 mm Hg 10/01/2024 0 Weight 172.2 lbs 10/01/2024 0 BMI 26.18 kg/m2 10/01/2024 0 Encounters Encounter Location Date Provider Diagnosis [address] [address] 11/30/2023 Provider [employer]Migration Behcet's disease M35.2 and 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.2 [facility] [address] [address] 04/09/2024 Alison Banks 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.2 ; Behcet's disease M35.2 and Rash and other nonspecific skin eruption R21 [facility] [address] [employer] [address] [address] 10/01/2024 Alison Banks 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.2 ; Nonfamilial hypogammaglobulinemia D80.1 ; Behcet's disease M35.2 and Rash and other nonspecific skin eruption R21 [facility] [address] [place] [address] 10/17/2023 Alison Banks [facility] [address] [place] [address] 01/07/2024 Alison Banks [facility] [address] [place] [address] 01/22/2024 Alison Banks 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.[address] [address] 01/22/2024 Alison Banks [address] [address] 07/23/2024 Alison Banks Assessments Encounter Date Diagnosis (ICD Code) Assessment Notes Treatment Notes Treatment Clinical Notes Section Notes 11/30/2023 Behcet's disease (IC D-10 - M35.2) 11/30/2023 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 We do not have her pre-treatment levels or her vaccination titers. She states her IgG level previously was borderline low. Recommend continuation of her treatment for now. She will continue 8 gm of Hizentra -Last trough 1100 Sent Hizentra rx. Att: Rommel - [phone]. 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 Mainly for Bechets but also was diagnosed with hypogammaglobuli nemia -She states she has been in good health and does not desire changing her infusions. Started immune replacement with her last merchant police. Previosuly offered to check labs as this has not been done in 18 years except for a recent IgA and IgM. IgA was borderline low at 42 kU/L. -Previosuly attempted to obtain records from her prior merchant police. We do not have her pre-treatment levels or her vaccination titers. She states her IgG level previously was borderline low. Recommend continuation of her treatment for now. She will continue 8 gm of Hizentra -Last trough 1100 Sent Hizentra rx. Att: Rommel - [phone]. 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 clinically stable with treatment -with late dosing she experiences oral ulcers 04/09/2024 Rash and other nonspecific skin eruption (ICD-10 - R21) Possible AKs -await Dermatology evaluation 10/01/2024 Rash and other nonspecific skin eruption (ICD-10 - R21) Possible AKs -await Dermatology evaluation 04/09/2024 Other 10/01/2024 Other Plan Of Treatment Pending Test Test Name Order Date -Immunoglobulin G, Qn, Serum 10/01/2024 Next Appt Details Provider Name:Alison Regis Banks , 03/25/2025 12:30:00 PM, [address] [facility], [address], [place], [address], Insurance Providers Payer Name Payer Address Payer Phone Subscriber Number Group Number Insured Name Patient Relationship to Insured Coverage Start Date Coverage End Date [employer] (Medicare) Attention Claims [address] [place] [address] [id number] Karina Gillespie Self - [place] [address] [id number] GillespieKarina Self - patient is the insured Medical (General) History Medical History History ICD Code Anxiety disorder, unspecified F41.9 Otalgia, unspecified ear H92.09 Headache, unspecified R51.9 Essential (primary) hypertension I10 Behcet's disease M35.2 Hypothyroidism, unspecified E03.9 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
== END 2024-10-12 12:06 | disposition home or self-care (01) ==
PROVIDERS: Emergency Provider Nurse Practitioner Family; PCP Student in an Organized Health Care Education/Training Program
DX: R33.9 Retention of urine, unspecified (principal); M35.2 Behcet's disease; M47.816 Spondylosis without myelopathy or radiculopathy, lumbar region; E04.9 Nontoxic goiter, unspecified; E78.5 Hyperlipidemia, unspecified; D80.2 Selective deficiency of immunoglobulin A [IgA]; M41.9 Scoliosis, unspecified; Z95.0 Presence of cardiac pacemaker; F32.A Depression, unspecified; Z90.49 Acquired absence of other specified parts of digestive tract; Z79.82 Long term (current) use of aspirin
CPT/HCPCS: 81003; 99213; G0463

== ENCOUNTER 2024-10-17 11:05 | Emergency (ER) | payer MEDICARE, OTHER, SELFPAY ==
--- NOTE | 2024-10-17 11:10 | ED.FEMALEGU ---
HPI - Female Genitourinary General Chief complaint: Urogenital-Female Stated complaint: was called to give urine sample Time Seen by Provider: 10/17/24 11:05 Source: patient Mode of arrival: ambulatory Limitations: no limitations History of Present Illness HPI Narrative: Patient is a 84-year-old female who presents for urine testing. Patient was seen here 10/12 and had normal point of care UA. at that time patient was having bladder pressure and decreased urination for 3 days. Denied any urgency, frequency or burning with urination. Denied any fever, chills, low back pain, nausea, vomiting, diarrhea. urine culture was lost in lab and patient will call to come give additional urine sample. Patient was not placed on antibiotics last visit. Symptoms remain consistent from last visit. MD elicited complaint: dysuria Related Data Home Medications ?Medication ?Instructions ?Recorded ?Confirmed ?Last Taken ?Type aspirin 81 mg tablet,delayed 81 mg PO QAM 11/08/20 05/19/24 Unknown History release biotin 5,000 mcg disintegrating 5,000 mcg PO QPM 11/08/20 05/19/24 Unknown History tablet calcium 600 mg (as 1 tablet PO QPM 11/08/20 05/19/24 Unknown History carbonate)-vitamin D3 5 mcg (200 unit) tablet (Calcium 600 + D(3)) docusate sodium 50 mg capsule 200 mg PO HS 11/08/20 05/19/24 Unknown History (Stool Softener) fluoxetine 20 mg capsule 40 mg PO DAILY 11/08/20 05/19/24 Unknown History buspirone 5 mg tablet 5 mg PO BID 12/28/21 05/19/24 Unknown History immun glob G 4 gram/20 mL(20 subcut 12/28/21 05/19/24 Unknown History %)-prol-IgA 0-50 mcg/mL subcutaneous soln (Hizentra) levothyroxine 100 mcg capsule 100 mcg PO DAILY 12/28/21 05/19/24 Unknown History multivitamin with iron 1 tablet PO DAILY 12/28/21 05/19/24 Unknown History zinc gluconate 50 mg tablet 50 mg PO DAILY 12/28/21 05/19/24 Unknown History eszopiclone 2 mg tablet (Lunesta) 2 mg PO QHS 02/22/22 05/19/24 Unknown History propranolol 40 mg tablet 40 mg PO Q12H 02/22/22 05/19/24 Unknown History Allergies Allergy/AdvReac Type Severity Reaction Status Date / Time morphine Allergy Mild Rash Verified 10/17/24 11:10 prednisone AdvReac Mild Insomnia Verified 10/17/24 11:10 clonazepam (From Klonopin) AdvReac Unknown Verified 10/17/24 11:10 codeine AdvReac Nausea Verified 10/17/24 11:10 olanzapine AdvReac Unknown Verified 10/17/24 11:10 sulfamethoxazole (From AdvReac Unknown Verified 10/17/24 11:10 Septra) topiramate (From Topamax) AdvReac Unknown Verified 10/17/24 11:10 trimethoprim (From Septra) AdvReac Unknown Verified 10/17/24 11:10 Review of Systems Review of Systems: All systems reviewed & are unremarkable except as noted in HPI and below Constitutional: Constitutional: Denies chills, Denies fever(s), Denies headache(s), Denies malaise and Denies weakness Eyes: Eyes: Denies change in vision, Denies eye discharge and Denies irritation ENT: Denies otalgia, Denies headache(s), Denies nasal congestion, Denies nasal discharge, Denies sinus pain and Denies sore throat Cardiovascular: Cardiovascular: Denies chest pain, Denies edema, Denies palpitations and Denies dyspnea Respiratory: Respiratory: Denies cough and Denies dyspnea Gastrointestinal: Gastrointestinal: Denies abdominal pain, Denies diarrhea, Denies nausea and Denies vomiting Genitourinary: Genitourinary: Denies hematuria, Denies nocturia, Denies dysuria, Denies flank pain, Reports urinary hesitancy and Denies urinary urgency Musculoskeletal: Musculoskeletal: Denies back pain and Denies numbness Integumentary/Breasts: Skin/Breast: Denies pruritus and Denies rash Neurologic: Denies headache(s), Denies numbness and Denies weakness Psychiatric: Psychiatric: Reports no additional psychiatric complaints Endocrine: Endocrine: Denies palpitations PMFSH Past Medical History Medical History 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tomy planned Surgical History Surgical History History of colectomy (~08/16/08) Family History Family History Father Congestive heart failure Emphysema, unspecified Mother , 87 Parkinsons Social History Social History Social History: Patient rarely drinks caffeine Smoking status: Never smoker Alcohol intake: never Substance use: never Substance use type: does not use Do You Feel Safe in your Home?: Yes Lack of Transportation: No Lack of Food: Never True Current Housing: I Have Housing Concerned About Future Housing: No Difficulty Paying Gas/Electric Bills: No Difficulty Paying for Meds: No Currently Unemployed: No Education: High School Diploma/GED Difficulty w/ Childcare or Family Care: No Living arrangements: with family Additional living arrangements comments: Resident of [facility] Occupation/Education: retired Comments At time of signature, agree with nursing past medical, surgical, social and family history. There is no relevant family history pertinent to the presenting complaint. Exam Const: General: cooperative, healthy appearing, comfortable, no acute distress and well nourished Nutritional Appearance: well nourished Orientation/consciousness: patient oriented x3 HENMT: Head: normocephalic and atraumatic Ears: external ears normal Face/Nose/Sinus: Normal external nose present, Normal nares present and normal facial exam Face and sinus: normal facial exam Eyes: General: appearance normal, both eyes and all related structures Pupils: Equal, round and reactive pupils present EOM: EOMs intact bilaterally Neck: Neck: normal visual inspection, full ROM and supple Chest: Chest palpation & inspection: normal inspection of the chest Resp: Effort & Inspection: normal respiratory effort and able to speak in complete sentences Cardio: Rate: regular rate Rhythm: regular rhythm GI: Inspection: normal to inspection GI Palp: No abdominal tenderness and Yes Soft to palpation : General: Yes no CVA tenderness Back/Spine/Pelvis: Back: no CVA tenderness Skin: General skin exam: normal color and no rashes or lesions noted Neuro: General: patient oriented x3 and moves all extremities Cranial nerves: Yes Equal, round and reactive pupils present Extrem: General: normal to inspection and full ROM Psych: Appearance: grossly normal and well kempt Course Course Emergency Course: Patient is aware of diagnosis, understands and agrees to treatment plan. Anticipatory guidance given. Patient agrees to follow-up as directed and is aware of reasons to seek care at the emergency department. Portions of this record may have been created with voice recognition software Level of Care: Express Care Visit Vital Signs Vital signs: Vital Signs Temperature 36.2 C L 10/17/24 11:16 Pulse Rate 74 10/17/24 11:16 Respiratory Rate 16 10/17/24 11:16 Blood Pressure 150/70 H 10/17/24 11:16 Pulse Oximetry 97 10/17/24 11:16 Oxygen Delivery Room Air 10/17/24 11:16 Temperature 36.2 C L 10/17/24 11:16 Pulse Rate 74 10/17/24 11:16 Respiratory Rate 16 10/17/24 11:16 Blood Pressure 150/70 H 10/17/24 11:16 Pulse Oximetry 97 10/17/24 11:16 Oxygen Delivery Room Air 10/17/24 11:16 Reviewed MDM - Female Genitourinary MDM Narrative Medical decision making narrative: Patient has history of chronic kidney disease and has seen urologist in the past. Was told roughly 10 years ago that it was not significant and function was appropriate for age. educated patient on the possibility that kidney function could be declining causing decreased urine output. offered transfer to emergency department for further evaluation of kidneys. Patient declined stating she does not feel that symptoms are bad enough to require emergency room visit. Patient states she will call her primary on Saturday to get an appointment and lab work. Exam findings and UA show no signs of UTI, will send for culture; patient is non-toxic appearing and is in no distress. No CMT, adnexal tenderness, or evidence of pelvic etiology. Patient is appropriate for outpatient treatment and follow-up. encouraged patient to follow up with PCP and a urologist. Differential Diagnosis Differential diagnosis: Likely urinary tract infection, bacterial vaginosis, trichomoniasis, cervicitis, vaginitis and cystitis Medical Records Attestation: I reviewed the patient's medical records. Lab Data Attestation: I reviewed the patient's lab results. Labs: Lab Results 10/17/24 Range/Units 11:27 POC Urine Color Yellow POC Urine Clarity Clear POC Urine pH 6.0 POC Ur Specif [employer] 1.020 POC Urine Protein Negative (Negative) POC Ur Glucose (UA) Negative (Negative) POC Urine Ketones Negative (Negative) POC Urine Blood Negative (Negative) POC Urine Nitrite Negative (Negative) POC Urine Bilirubin Negative (Negative) POC Urine Urobilinogen 0.2 POC U Leukocyte Esteras Negative (Negative) Discharge Plan Discharge Clinical Impression: Decreased urine output Patient Disposition: Home Condition: Stable Instructions: Acute Urinary Retention in Women (ED) Additional Instructions: We will send a urine culture to the lab If culture comes back and bacteria is not susceptible to antibiotic, your prescription may change. Continue with increased water intake. Take Tylenol or ibuprofen as needed for pain or fever. Follow-up with primary care provider for labs to evaluate kidney function or go to the ER if condition worsens with high fever, nausea, vomiting, severe back pain or you do not urinate at all for over 12 hours. Patient Language: Syrian Prescriptions: No Action fluoxetine 20 mg capsule 40 mg PO DAILY aspirin 81 mg tablet,delayed release (DR/EC) 81 mg PO QAM calcium carbonate-vitamin D3 [Calcium 600 + D(3)] 600 mg(1,500mg) -200 unit tablet 1 tablet PO QPM Stool Softener 50 mg capsule 200 mg PO HS biotin 5,000 mcg tablet,disintegrating 5,000 mcg PO QPM buspirone 5 mg tablet 5 mg PO BID Hizentra 4 gram/20 mL (20 %) solution subcut levothyroxine 100 mcg capsule 100 mcg PO DAILY multivitamin with iron Tablet 1 tablet PO DAILY zinc gluconate 50 mg tablet 50 mg PO DAILY propranolol 40 mg tablet 40 mg PO Q12H eszopiclone [Lunesta] 2 mg tablet 2 mg PO QHS gabapentin 600 mg tablet 600 mg PO TID Qty: 90 4RF azathioprine [Imuran] 50 mg tablet 100 mg PO BID Qty: 120 4RF cyanocobalamin (vitamin B-12) 2,500 mcg tablet 2,500 mcg PO DAILY Qty: 90 2RF losartan 50 mg tablet See Rx Instructions .ROUTE .COMPLEX Qty: 90 2RF Dose Instruction: TAKE 1 TABLET BY MOUTH DAILY Rx Instructions: TAKE 1 TABLET BY MOUTH DAILY atorvastatin 80 mg tablet See Rx Instructions .ROUTE .COMPLEX Qty: 90 2RF Dose Instruction: TAKE 1 TABLET BY MOUTH DAILY Rx Instructions: TAKE 1 TABLET BY MOUTH DAILY Follow-up/Referrals: Elton,DO [place] [Primary Care Provider] - 3 Days (Call saturday for an appointment to have labs ordered to assess kidney function) Time of Disposition: 11:38
[2024-10-17 11:16] VITALS: BP 150/70; PULSE 74; RESP 16; TEMP 36.2; O2SAT 97
[2024-10-17 11:30] LABS: EDUAAPPEAR Clear; EDUABILI Negative (Negative); EDUABLOOD Negative (Negative); EDUACOLOR1 Yellow; EDUAGLUCOSE Negative (Negative); EDUAKETONE Negative (Negative); EDUALEUKO Negative (Negative); EDUANITRATE Negative (Negative); EDUAPROTEIN Negative (Negative); EDUAUROBILI 0.2
--- OUTSIDE RECORDS SUMMARY | 2024-10-17 16:24 | XMS_ITS | Clinical Summary ---
Author Organization [facility] [employer] Address [address] [place] [address] Care Team Providers Care Coutierier Name Role Phone Memonicole [place] Lucero DO Primary Care Provider + Source Comments [facility] [employer],non-owned Affiliates and Associated Physician Practices is amultiple site organization consisting of ambulatory clinics and hospital sitesin [place], [place], [place] and [place]. This disclosure is being madepursuant to the Care Everywhere program and may not contain all information available regarding this patient. Last updated 18.[facility] [employer] Allergies Active Allergy Reactions Criticality Noted Date [...] on file Legal Sex Female 7:34 AM MULTIMEDIA SERVICES COORDINATOR Gender Identity Female 07/25/2023 7:34 AM MULTIMEDIA SERVICES COORDINATOR Sexual Orientation Not on file Last Filed Vital Signs Vital Sign Reading Time Taken Comments Blood Pressure 146/81 06/15/2024 1:37 PM MULTIMEDIA SERVICES COORDINATOR Pulse 70 06/15/2024 1:37 PM MULTIMEDIA SERVICES COORDINATOR Temperature - - Respiratory Rate - - Oxygen Saturation 95% 06/15/2024 1:37 PM MULTIMEDIA SERVICES COORDINATOR Inhaled Oxygen Concentration - - Weight 78.7 kg (173 lb 6.4 oz) 06/15/2024 1:37 P M MULTIMEDIA SERVICES COORDINATOR Height - - Body Mass Index - - Plan of Treatment Upcoming Encounters Date Type Department Care Team (Late st Contact Info) Description 12/14/2024 2:00 PM CDT Office Visit [facility] - Endocrinology [address] [place] [address], [place] [id number] Rosy Guevara MD [address] [place] [address] [place] [address] Health Maintenance Due Date Last [...] patient's age to complete this topic Insurance [facility] MEDICARE Care Teams Coutierier Relationship Specialty Start Date End Date Kle[place] Conde DO [address] [place] [address] PCP - General Family Medicine Geriatric Medicine 11/26/23
--- OUTSIDE RECORDS SUMMARY | 2024-10-17 16:24 | XMS_ITS ---
Author Organization [facility] [place] ([address]) Address [address] [place] [address] Care Team Providers Care Telesales Agent Name Role Phone MemopitaKleber benites Primary Care Provider Alison Krishnan [phone] REASON FOR VISIT Message Social History Sex Assigned At : Social History Observation Description Sex Assigned At Female Encounters Encounter Location Date Provider Diagnosis [facility] [address] [place] [address] 07/23/2024 Alison Banks Plan Of Treatment Next Appt Details Provider Name:Alison Banks , 03/25/2025 12:30:00 PM, [facility] [address], [place], [address], Progress Notes * Eamon MCCLELLANOB:1940 (84 yo F)Acc No.[id number]:07/23/2024 Patient: Karina HOLDEN :1940 A ge:84 Y S ex:Female Address:[address], [place], [address] * true * Date: Generated for Angeliai ng/Faxing/eTransmitting on: 0 10/17/2024 04:24 PM CDT
--- OUTSIDE RECORDS SUMMARY | 2024-10-17 16:24 | XMS_ITS | Referral Summary ---
Author Organization [facility] [address] [facility] Address [address] [place] [address] Care Team Providers Care Fitter Type Bar And Segment Name Role Phone Kleber Conde Primary Care Provide r Jasmeet Wade MD Unavailable [phone] Allergies Active Allergy Reactions Criticality Noted Date Comments Jteoihdfth-Rnlesztgij-Eqd- Cod Nausea And Vomiting 05/25/2021 Clonazepam Hives,Unknown [...] 07/06/2024 Assessment & Plan (07/06/2024 3:15 PM ENTRY ANALYST): Pain with palpation in the left upper chest just lateral to her pacemaker. No erythema or fluctuance. Denies fevers. Advised to contact her reference services head. terminal clerk current use of therapeutic drug 2023 Assessment & Plan (07/06/2024 1:16 PM ENTRY ANALYST): TPMT wnl (16): 09/2023 Assessment & Plan (04/06/2024 1:02 PM CDT): TPMT wnl (16): 09/2023 Assessment & Plan (12/30/2023 10:54 AM CDT): TPMT wnl (16): 09/2023 Behcet's syndrome 10/01/2023 Overview (10/10/2023): TPMT wnl (16): 09/2023 Assessment & Plan (07/06/2024 3:10 PM ENTRY ANALYST): Dx 2004, +HLA-B51. She is currently [...] on file Legal Sex Female 6:42 PM ENTRY ANALYST Gender Identity Not on file Sexual Orientation Not on file Last Filed Vital Signs Vital Sign Reading Time Taken Comments Blood Pressure 128/84 07/06/2024 1:20 PM ENTRY ANALYST Pulse 69 07/06/2024 1:20 PM ENTRY ANALYST Temperature - - Respiratory Rate - - Oxygen Saturation 93% 07/06/2024 1:20 PM ENTRY ANALYST Inhaled Oxygen Concentration - - Weight 78.5 kg (173 lb) 07/06/2024 1:20 PM ENTRY ANALYST Height 172.7 cm (5' 8 ) 07/06/2024 1:20 PM ENTRY ANALYST Body Mass Index 26.3 07/06/2024 1:20 PM ENTRY ANALYST Plan of Treatment Not on file Insurance MEDICARE MEDICARE [facility] Care Teams Fitter Type Bar And Segment Relationship Specialty Start Date End Date Kleber Conde DO [address] [place] [address] PCP - General Family Medicine 08/30/23 Jasmeet Wade MD [address] [place] [address] Consulting Physician Rheumatology 08/30/23
--- OUTSIDE RECORDS SUMMARY | 2024-10-17 16:24 | XMS_ITS | Clinical Summary ---
Author Organization [facility] [address] [facility] Address [address] [place] [address] Care Team Providers Care Bobbin Cleaner Name Role Phone Kleber Conde Primary Care Provide r Jasmeet Wade MD Unavailable [phone] Allergies Active Allergy Reactions Criticality Noted Date Comments Uagnwdvswa-Nmshkdaidb-Ext- Cod Nausea And Vomiting 05/25/2021 Clonazepam Hives,Unknown [...] 07/06/2024 Assessment & Plan (07/06/2024 3:15 PM DAM OPERATOR): Pain with palpation in the left upper chest just lateral to her pacemaker. No erythema or fluctuance. Denies fevers. Advised to contact her user interface developer. manager long term care current use of therapeutic drug 2023 Assessment & Plan (07/06/2024 1:16 PM DAM OPERATOR): TPMT wnl (16): 09/2023 Assessment & Plan (04/06/2024 1:02 PM CDT): TPMT wnl (16): 09/2023 Assessment & Plan (12/30/2023 10:54 AM CDT): TPMT wnl (16): 09/2023 Behcet's syndrome 10/01/2023 Overview (10/10/2023): TPMT wnl (16): 09/2023 Assessment & Plan (07/06/2024 3:10 PM DAM OPERATOR): Dx 2004, +HLA-B51. She is currently [...] on file Legal Sex Female 6:42 PM DAM OPERATOR Gender Identity Not on file Sexual Orientation Not on file Obstetrics History Last Filed Vital Signs Vital Sign Reading Time Taken Comments Blood Pressure 128/84 07/06/2024 1:20 PM DAM OPERATOR Pulse 69 07/06/2024 1:20 PM DAM OPERATOR Temperature - - Respiratory Rate - - Oxygen Saturation 93% 07/06/2024 1:20 PM DAM OPERATOR Inhaled Oxygen Concentration - - Weight 78.5 kg (173 lb) 07/06/2024 1:20 PM DAM OPERATOR Height 172.7 cm (5' 8 ) 07/06/2024 1:20 PM DAM OPERATOR Body Mass Index 26.3 07/06/2024 1:20 PM DAM OPERATOR Plan of Treatment Health Maintenance Due [...] Completed 017, 06/06/2013, 01/15/2013 Insurance MEDICARE MEDICARE [facility] Care Teams Bobbin Cleaner Relationship Specialty Start Date End Date Kleber Conde DO [facility] [place] [address] PCP - General Family Medicine 08/30/23 Jasmeet Wade MD [address] [place] [address] Consulting Physician Rheumatology 08/30/23
--- OUTSIDE RECORDS SUMMARY | 2024-10-17 16:24 | XMS_ITS | Patient Health Record ---
Author Organization [facility] Address [address] [place] [address] Care Team Providers Care Tree Inspector Name Role Phone SULEMAN MITCHELL Primary Care Provider Unavail able Shayla Moore Unavailable [phone] Julieta Iverson Unavailable [phone] Migration, Provider Unavailable Unavailable Allergies Allergen (clinical [...] 10 MCG (400 UNIT) TABLET *Reorder from [employer] for eRx and Interaction Alerts* 08/26/2023 Active [...] Oral 08/26/2023 Active Hizentra *Pick strength-form from [employer] for eRX* 08/26/2023 Active Eszopiclone 3 MG [...] Risk Notes Problem Mild recurrent major depression (09054421) Major depressive disorder, recurrent, mild (F33.0) Active confirmed Problem Generalized anxiety disorder (76416311) Generalized anxiety disorder (F41.1) 4 Active confirmed Problem Primary insomnia (F51.01) 4 Active confirmed Problem Behcet's disease (904201841) 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) 4 Active confirmed Vital Signs Heart Rate 70 /min 11/21/2023 Height-cm 172.72 cm 11/21/2023 Blood pressure diastolic 80 mm Hg 11/21/2023 Weight-kg 84.82 kg 11/21/2023 Height 68.00 in 11/21/2023 Blood pressure systolic 161 mm Hg 11/21/2023 Weight 187 lbs 11/21/2023 BMI 28.43 kg/m2 11/21/2023 Encounters Encounter Location Date Provider Diagnosis [facility] [address] [address] 10/24/2023 Provider Migration Primary insomnia F51.01 [facility] [address] [address] 11/21/2023 Julieta Iverson Generalized anxiety disorder F41.1 ; Major depressive disorder, recurrent, mild F33.0 ; Primary insomnia F51.01 and Behcet's disease M35.2 [facility] [address] [address] 02/21/2024 Julieta Iverson Generalized anxiety disorder F41.1 ; Major depressive disorder, recurrent, mild F33.0 ; Primary insomnia F51.01 and Behcet's disease M35.2 [facility] [address] [address] 10/21/2023 Provider Migration [facility] [address] [address] 10/24/2023 [facility] [place] [address] [facility] [address] [address] 10/25/2023 Provider Migration [address] [address] 11/02/[address] [address] 11/03/[address] [address] 05/19/2024 Shaylaalejandra Perezshar Primary insomnia F51.01 [facility] [address] [address] 07/28/2024 [facility] Moore [facility] [address] [address] 07/21/2024 Shaylaalejandra Moore Primary insomnia F51.01 Assessments Encounter Date Diagnosis (ICD Code) Assessment Notes Treatment Notes Treatment Clinical Notes Section Notes 10/24/2023 Primary insomnia (ICD-10 - F51.01) 11/21/2023 Major [...] change prozac to other, perhaps paxil-has not tried*salvage determiner anxiety, shaky feelings, sleep complaints, not tolerate [...] not effective, then lunesta, hydroxyzine not tolerated. 05/19/2024 Primary insomnia (ICD-10 - F51.01) 07/21/2024 Primary insomnia (ICD-10 - F51.01) 02/21/2024 Major depressive disorder, recurrent, mild (ICD-10 - F33.0) as above 11/21/2023 Primary insomnia (ICD-10 - F51.01) cont lunesta 3mg qhs prn (no extra) insomnia practice good sleep hygiene 11/21/2023 Behcet's disease (ICD-10 - M35.2) IgG [...] l Medicare [address] [place] [address] [id number] STEPHON MCCLELLAN Self - patient is the insured [place] [address] [place] [address] [id number] STEPHON MCCLELLAN Self - patient is the insured Medical (General) History Medical History History ICD Code Problems: Behcet's syndrome Generalized anxiety disorder Mild recurrent major depression Moderate recurrent major depression Primary insomnia , Surgical History Surgery Date(Month/Year) Hernia repair (55049573) Procedure on bladder (925166650) Xcapsl ctrc rmvl cplx wo ecp (58101) Any surgical history Tonsilectomy/adenoids Hysterectomy/revise vagina (71633) Cardiac pacemaker procedure (232038382) Heart surgery 06/17/1991 Removal of gallbladder (14242) 4 Tonsilectomy/adenoids 06/17/2006 hyperparathyroidism 06/2023
--- OUTSIDE RECORDS SUMMARY | 2024-10-17 16:25 | XMS_ITS | Continuity of Care Document ---
Author Organization [facility] Address [address] [place] [address] Phone Care Team Providers Care Gauge Maker Name Role Phone Rob RAI, Jeremias Unavailable [...] Diagnoses Date Provider Providers Copied on Encounter [facility], [facility], [address] [place] [address], [id number] , tel:[phone] [facility] burning (chief complaint)bu rning (chief complaint) Keratoconjunctivit is sicca, not specified as Sj g nolan's, bilateralMyopia, right eyeRegular astigmatism, bilateralPresbyopi aNonexudative age-related macular degeneration, bilateral, early dry stage 1 Rob Mcdowell. [address] [place] [address], [id number], [place]. tel:[phone] [facility], [facility], [address] [place] [address], [id number] , tel: [phone] [facility] pain, redness, yellow discharge, blurry vision (chief complaint)pa in, redness, yellow discharge, blurry vision (chief complaint) Keratoconjunct sicca, not specified as Sjogren's, bilateralMeibomian gland dysfunction left eye, upper and lower eyelidsMeibomian gland dysfunction right eye, upper and lower eyelids 1 Rob Mcdowell. [address] [place] [address], [id number], [place]. tel:[phone] [facility], [address] [place] [address], [id number] , [place] tel: [phone] [facility] dryness (chief complaint)dr daily (chief complaint) Bilateral keratoconjunctivit is sicca, not specified as Sjogren's 9 Rob Mcdowell. [address] [place] [address], [id number], [place]. tel:[phone] [facility], [address] [place] [address], [id number] , [place] tel: [phone] [facility] light sensitivity & occasional blurry vision (chief complaint)li ght sensitivity & occasional blurry vision (chief complaint) Behcet's diseaseDry eye syndrome of bilateral lacrimal glands 9 Rob Mcdowell. [address] [place] [address], [id number], [place]. tel:[phone] [facility], [address] [place] [address], [id number] , [place] tel: [phone] [facility] no improvement (chief complaint)no improvement (chief complaint) Bilateral keratoconjunctivit is sicca, not specified as Sjogren'sKeratocon junct sicca, not specified as Sjogren's, right eyeKeratoconjunct sicca, not specified as Sjogren's, left eye 9 Rob Mcdowell. [address] [place] [address], [id number], [place]. tel:[phone] [facility], [address] [place] [address], [id number] , tel:[phone] [facility] blurry vision (chief complaint)bl urry vision (chief complaint) Keratoconjunctivit is sicca, not specified as Sj g nolan's, bilateralUnspecifi ed blepharitis right eye, upper and lower eyelidsUnspecified blepharitis left eye, upper and lower eyelids [facility] Jeremias. [address] [place] [address], [id number], [place]. tel:[phone] [facility], [address] [place] [address], [id number] , tel:[phone] [facility] decreased vision (chief complaint)de creased vision (chief complaint) PresbyopiaRegular astigmatism, bilateralDry eye syndrome of left lacrimal glandDry eye syndrome of right lacrimal glandKeratoconjunc tivitis sicca, not specified as Sj g nolan's, right eyeKeratoconjuncti vitis sicca, not specified as Sj g nolan's, left eye [facility] Jeremias. [address] [place] [address], [id number], [place]. tel:[phone] [facility], [address] [place] [address], [id number] , tel:[phone] [facility] no problems with vision and no complaints (chief complaint)no problems with vision and no complaints (chief complaint) Lens replaced by other meansBehcets syndrome Terrance Mcdowell. [address] [place] [address], [id number], . tel:[phone] Referring Provider: Eddie Gaviria, [address] [place] [address] [address], [place], [address]. tel:[phone] Family History Family Member Type Diagnosis Age At Onset Mother Problem (finding) hypertension Brother Problem (finding) hypertension Problem (finding) No family history of Ca taracts Sister Problem (finding) hypertension Father Problem (finding) hypertension Problem (finding) No family history of Di abetes mellitus Problem (finding) No family history of Gl aucoma Problem (finding) No family hist ory of Macular degeneration Payers Payer name Insurance type Covered green party ID Authoriza tion(s) Medicare [place] [id number] [facility] [id number] Social History Type Description Quantity Date Captured [...] ordered Referral Referred To: Eddie Oliveira MD [address] [place] [address]
[address] [place] [address], [phone] Ordered: Referrals: Family Medicine. Eddie Oliveira MD. [...]
--- OUTSIDE RECORDS SUMMARY | 2024-10-17 16:25 | XMS_ITS | Encounter Summary ---
Author Organization [facility] Address [facility] [place] [address] Care Team Providers Care Assistant Sales Center Manager Name Role Phone Kleber Conde Primary Care Provider + Encounter Details Date Type Department Care Team (Late Contact Info) Description 04/20/2024 [employer] Message Enc [facility] Family & Internal Medicine [address] [address] [employer], [facility] Provider CT results Social History Tobacco Use [...] Sex Assigned at Female 06/23/2024 1:08 PM DISH CARRIER Legal Sex Female 9:29 AM CDT Gender Identity Female 06/09/2021 8:11 AM DISH CARRIER Sexual Orientation Straight 06/09/2021 8: 11 AM DISH CARRIER documented as of this encounter Plan of Treatment Upcoming Encounters Date Type Department Care Team (Late st Contact Info) Description 12/29/2024 11:20 AM CDT Office Visit [facility] Family & Internal Medicine - [place] [id number] [place] [address] Kleber Conde DO [address] [place] [id number] documented as of this encounter Visit Diagnoses Not on filedocumented in this encounter Additional Health Concerns Assessment Noted Time PHQ-9 Depression Total Score: 0 08/30/19 11:25 AM CDT documented as of this encounter Care Teams Assistant Sales Center Manager Relationship Specialty Start Date End Date Kleber Conde DO [address] [place] [id number] PCP - General FAMILY PRACTICE 06/24/23 documented as of this encounter
--- OUTSIDE RECORDS SUMMARY | 2024-10-17 16:25 | XMS_ITS | Continuity of Care Document ---
Author Organization [facility] Address [address] [place] [address] Phone Care Team Providers Care Machine Operator General Name Role Phone Rob RAI, Jeremias Unavailable [...] route every day 25 MG - Active Imuran 50 mg tablet take 2AM & 1PM tablet by oral route every day - Active Synthroid 100 mcg tablet take 1 tablet by oral route every day 100 MCG - Active simvastatin 40 mg tablet take 1 tablet by oral route every day in the evening 40 MG - Active Prozac 40 mg capsule take 1 capsule by oral route every day in the morning 40 MG - Active Vitamin B-12 2,500 mcg sublingual tablet 1xd po - Active Stool Softener 50 mg capsule take 1 capsule by oral route 3 times every day at bedtime as needed 50 MG - Active Neurontin 300 mg capsule take 1 capsule by oral route 3 times every day 300 MG - Active Xanax 1 mg tablet take 1 tablet by oral route every day 1 MG - Active hydrocodone 10 mg-acetaminophen 325 mg tablet take 1 tablet by oral route every 4 - 6 hours as needed for pain 1.00 tablet - Active Hizentra 4 gram/20 mL (20 %) subcutaneous solution inject (50MG/KG) by subcutaneous route every week via infusion pump not to exceed 4 separate injection sites at the same time 50 MG/KG - Active Calcium 600 + D(3) 600 mg calcium-200 unit capsule - Active Refresh Optive 0.5 %-0.9 % [...] Diagnoses Date Provider Providers Copied on Encounter [facility], [facility], [address] [place] [address], [id number] , tel:[phone] [facility] burning (chief complaint)bu rning (chief complaint) Keratoconjunctivit is sicca, not specified as Sj g nolan's, bilateralMyopia, right eyeRegular astigmatism, bilateralPresbyopi aNonexudative age-related macular degeneration, bilateral, early dry stage 1 Rob Mcdowell. [address] [place] [address], [id number], [place]. tel:[phone] [facility], [facility], [address] [place] [address], [id number] , tel: [phone] [facility] pain, redness, yellow discharge, blurry vision (chief complaint)pa in, redness, yellow discharge, blurry vision (chief complaint) Keratoconjunct sicca, not specified as Sjogren's, bilateralMeibomian gland dysfunction left eye, upper and lower eyelidsMeibomian gland dysfunction right eye, upper and lower eyelids 1 Rob Mcdowell. [address] [place] [address], [id number], [place]. tel:[phone] [facility], [address] [place] [address], [id number] , [place] tel: [phone] [facility] dryness (chief complaint)dr daily (chief complaint) Bilateral keratoconjunctivit is sicca, not specified as Sjogren's 9 Rob Mcdowell. [address] [place] [address], [id number], [place]. tel:[phone] [facility], [address] [place] [address], [id number] , [place] tel: [phone] [facility] light sensitivity & occasional blurry vision (chief complaint)li ght sensitivity & occasional blurry vision (chief complaint) Behcet's diseaseDry eye syndrome of bilateral lacrimal glands 9 Rob Mcdowell. [address] [place] [address], [id number], [place]. tel:[phone] [facility], [address] [place] [address], [id number] , [place] tel: [phone] [facility] no improvement (chief complaint)no improvement (chief complaint) Bilateral keratoconjunctivit is sicca, not specified as Sjogren'sKeratocon junct sicca, not specified as Sjogren's, right eyeKeratoconjunct sicca, not specified as Sjogren's, left eye 9 Rob Mcdowell. [address] [place] [address], [id number], [place]. tel:[phone] [facility], [address] [place] [address], [id number] , tel:[phone] [facility] blurry vision (chief complaint)bl urry vision (chief complaint) Keratoconjunctivit is sicca, not specified as Sj g nolan's, bilateralUnspecifi ed blepharitis right eye, upper and lower eyelidsUnspecified blepharitis left eye, upper and lower eyelids [facility] Jeremias. [address] [place] [address], [id number], [place]. tel:[phone] [facility], [address] [place] [address], [id number] , tel:[phone] [facility] decreased vision (chief complaint)de creased vision (chief complaint) PresbyopiaRegular astigmatism, bilateralDry eye syndrome of left lacrimal glandDry eye syndrome of right lacrimal glandKeratoconjunc tivitis sicca, not specified as Sj g nolan's, right eyeKeratoconjuncti vitis sicca, not specified as Sj g nolan's, left eye [facility] Jeremias. [address] [place] [address], [id number], [place]. tel:[phone] [facility], [address] [place] [address], [id number] , tel:[phone] [facility] no problems with vision and no complaints (chief complaint)no problems with vision and no complaints (chief complaint) Lens replaced by other meansBehcets syndrome Terrance Mcdowell. [address] [place] [address], [id number], . tel:[phone] Referring Provider: Eddie Gaviria, [address] [place] [address] [address], [place], [address]. tel:[phone] Family History Family Member Type Diagnosis Age At Onset Father Problem (finding) hypertension Sister Problem (finding) hypertension Problem (finding) No family history of Ca taracts Brother Problem (finding) hypertension Problem (finding) No family hist ory of Macular degeneration Problem (finding) No family history of Gl aucoma Problem (finding) No family history of Di abetes mellitus Mother Problem (finding) hypertension Payers Payer name Insurance type Covered alliance party ID Authoriza tion(s) Medicare [place] MB [id number] [facility] [id number] Social History Type Description Quantity Date Captured [...] ordered Referral Referred To: Eddie Oliveira MD [address] [place] [address]
[address] [place] [address], [phone] Ordered: Referrals: Family Medicine. Eddie Oliveira MD. [...]
--- OUTSIDE RECORDS SUMMARY | 2024-10-17 16:25 | XMS_ITS | Patient Health Record ---
Author Organization [facility] [place] ([address]) Address [address] [place] [address] Care Team Providers Care Developmental Behavioral Physician Name Role Phone Kleber Conde Primary Care Provider Alison Krishnan Unavailable [phone] [employer], Provider Unavailable Unavailab le Allergies Allergen [...] review and pick correct strength-formula tion from Tealetan options. If intended option is not shown, [...] review and pick correct strength-formula tion from ShopItToMe options. 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 Problem Hypothyroidism (63807168) Hypothyroidism, unspecified (E03.9) Active confirmed Problem Anxiety disorder (077533606) Anxiety disorder, unspecified (F41.9) Active confirmed Problem Polyneuropathy (20853372) Polyneuropathy, unspecified (G62.9) Active confirmed Problem Chronic allergic conjunctivitis (95862364) Other chronic allergic conjunctivitis (H10.45) Active confirmed Problem Pain of ear (finding ) (938079379) Otalgia, unspecified ear (H92.09) Active confirmed Problem Allergic rhinitis (50264564) Other allergic rhinitis (J30.89) Active confirmed Problem Alopecia (63109785) Nonscarring hair loss, unspecified (L65.9) Active confirmed Problem Behcet's disease (494917277) 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 Problem 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 (27475576) Other intervertebral disc displacement, 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 confirmed Problem Essential hypertensi on (19803760) Essential (primary) hypertension (I10) Active confirmed Problem 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 Problem Headache (43442714) Headache, unspecified (R51.9) Active confirmed Vital Signs Respiratory Rate 17 /min 04/09/2024 Oximetry 97 % 10/01/2024 0 Blood pressure diastolic 71 mm Hg 10/01/2024 0 Height 68 in 10/01/2024 0 Blood pressure systolic 144 mm Hg 10/01/2024 0 Weight 172.2 lbs 10/01/2024 0 BMI 26.18 kg/m2 10/01/2024 0 Encounters Encounter Location Date Provider Diagnosis [address] [address] 11/30/2023 Provider [employer] Behcet's disease M35.2 and 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.2 [facility] [address] [address] 04/09/2024 Alison Banks 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.2 ; Behcet's disease M35.2 and Rash and other nonspecific skin eruption R21 [facility] [address] [address] [address] 10/01/2024 Alison Banks 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.2 ; Nonfamilial hypogammaglobulinemia D80.1 ; Behcet's disease M35.2 and Rash and other nonspecific skin eruption R21 [facility] [address] [place] [address] 01/07/2024 Alison Banks [address] [address] 01/22/2024 Alison Banks 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.[address] [address] 01/22/2024 Alison Banks [address] [address] 07/23/2024 Alison Darren Assessments Encounter Date Diagnosis (ICD Code) Assessment [...] 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 We do not have her pre-treatment levels or her vaccination titers. She states her IgG level previously was borderline low. Recommend continuation of her treatment for now. She will continue 8 gm of Hizentra -Last trough 1100 Sent Hizentra rx. Att: Rommel - [phone]. 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 Mainly for Bechets but also was diagnosed with hypogammaglobuli nemia -She states she has been in good health and does not desire changing her infusions. Started immune replacement with her last warehouse insulation worker. Previosuly offered to check labs as this has not been done in 18 years except for a recent IgA and IgM. IgA was borderline low at 42 kU/L. -Previosuly 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 We do not have her pre-treatment levels or her vaccination titers. She states her IgG level previously was borderline low. Recommend continuation of her treatment for now. She will continue 8 gm of Hizentra -Last trough 1100 Sent Hizentra rx. Att: Rommel - [phone]. Return in 6 months for E&M 10/01/2024 [...] Serum 10/01/2024 Next Appt Details Provider Name:Alison Banks , 03/25/2025 12:30:00 PM, [facility], [address], [place], [address], Insurance Providers Payer Name Payer Address Payer Phone Subscriber Number Group Number Insured Name Patient Relationship to Insured Coverage Start Date Coverage End Date [employer] (Medicare) Attention Claims [address] [facility] [place] [address] [id number] Karina Gillespie Self - [place] [address] [id number] Juanito Gillespiece Self - patient is the insured Medical [...]
--- OUTSIDE RECORDS SUMMARY | 2024-10-17 16:25 | XMS_ITS ---
Author Organization [facility] Medication Review [facility] [place] ([address]) Address [address] [place] [address] Care Team Providers Care Copy Camera Operator Name Role Phone Kleber Conde Primary Care Provider Alison Krishnan Unavailable [phone] Allergies Allergen (clinical drug ingredient) Drug/Non Drug [...] No issues with dosing. Now serviced by [employer], Followed by Dr. Mio Lovelace of Rheumatology. Switched to Dr. Wade in [facility] who recommended continuation of treatment here, Resides at [facility]., Macrocytic anemia- labs recently by PCP. [...] review and pick correct strength-formula tion from SantoSolve options. If intended option is not shown, discontinue and re-order from Quick Search* Active buPROPion HCl ER (SR) 150 MG 1 tab(s) orally 2 times a day Active Levothyroxine Sodium 100 MCG 1 tab(s) orally once a day Active FLUoxetine HCl 20 MG 1 cap(s) orally once a day Active Aspirin *Please review and pick correct strength-formula tion from SantoSolve options. If intended option is not shown, [...] review and pick correct strength-formula tion from SantoSolve options. If intended option is not shown, [...] Problem Status W/U Status Risk Notes Problem Nonfamilial hypogammaglobulinemia (D80.1) Active confirmed Vital Signs Blood pressure systolic 144 mm Hg 10/02/19 25 Blood pressure diastolic 71 mm Hg 025 Height 68 in 10/01/2024 Weight 172.2 lbs 10/01/2024 BMI 26.18 kg/m2 10/01/2024 Oximetry 97 % 10/01/2024 0 Encounters Encounter Location Date Provider Diagnosis [facility] [address]22 [facility] [address] [place] [address] 10/01/2024 Alison Banks Selective deficiency of immunoglobulin [...] infusions. Started immune replacement with her last assistant project engineer. Previosuly offered to check labs as this has not been done in 18 years except for a recent IgA and IgM. IgA was borderline low at 42 kU/L. -Previosuly attempted to obtain records from her prior assistant project engineer. We do not have her pre-treatment levels or her vaccination titers. She states her IgG level previously was borderline low. Recommend continuation of her treatment for now. She will continue 8 gm of Hizentra -Last trough 1100 Sent Hizentra rx. Att: Rommel - [phone]. Return in 6 months for E&M 10/01/2024 [...] infusions. Started immune replacement with her last assistant project engineer. Previosuly offered to check labs as this has not been done in 18 years except for a recent IgA and IgM. IgA was borderline low at 42 kU/L. -Previosuly attempted to obtain records from her prior assistant project engineer. We do not have her pre-treatment levels or her vaccination titers. She states her IgG level previously was borderline low. Recommend continuation of her treatment for now. She will continue 8 gm of Hizentra -Last trough 1100 Sent Hizentra rx. Att: Rommel - [phone]. 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 No issues with dosing. [facility] [employer] [facility]. Switched to Dr. Wade in [facility] who recommended [facility].Macrocytic anemia- labs recently by PCP. Being [...] Karina is alone today, she resides at [facility]. She was diagnosed with an immunodeficiency roughly 18 years ago. We have no records. 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 Her Behects had lead to recurrent ulcerations in mouth, colon, and skin leading to frequent abx use. She had no history of sinopulmonary infections. She then was followed by Dr. Speedy Dalal of [facility] around 2003. Then over the last decade was followed by an IM doctor in [place] and then another provider in [place] when she moved. After her she moved to [place] in 2012. REJI Ng and Dr. Orellana has been managing since that time. She has been on the same dose of Hizentra since inital diagnosis and has not had recheck of labs. She is dosing 8 gm SQ weekly (each Saturday) through [employer] [facility] ([phone]). She has been stable since that time. She is also established with [facility] who is checking labs. Has been on Azathioprine for years. She avoids Topamax, prednisone, and morphine due to GI symptoms and dizziness. She has no complaintes today. No interval infections. Slated to have Flu shot at [facility]. Today, she reports no fevers, chills, night [...] *Please review and pick correct strength-formulation from SantoSolve options. If intended option is not shown, [...] *Please review and pick correct strength-formulation from SantoSolve options. If intended option is not shown, discontinue and re-order from Quick Search*Lunesta 2 MG Tablet 1 tab(s) orally once a day (at bedtime) busPIRone HCl 15 MG Tablet 1 tab(s) orally Once a day Hizentra 20% SOLUTION 8 GRAMS SUBCUTANEOUSLY ONCE A WEEK , Notes to Pharmacist: *Please review and pick correct strength-formulation from SantoSolve options. If intended option is not shown, discontinue and re-order from Quick Search*Taking Calcium 600 + D 600 MG-5 MCG TABLET 1 TAB(S) ORALLY 3 TIMES A DAY , Notes to Pharmacist: *Please review and pick correct strength-formulation from Prizeoan options. If intended option is not shown, [...] review and pick correct strength- formulation from Medispan options. If intended option is [...] REFERRAL TO ALTERNATIVE / PRIMARY CARE PROVIDER: Rudy mar to general practitioner * Follow Up: 6 Months (Reason: Evaluation and Management) * Billing Information: * Visit Code: 58844 Office Visit, Est Pt., Level 4. Modifiers: 25 * Procedure Codes: G8427 DOC MEDS VERIFIED W/PT OR RE. * Electronically signed by Saritha Banks PA-C, [facility] on 10/01/2024 at 12:55 PM CDT Sign off status: Completed true * Provider: Oswald Banks PA-C Date: 0 10/01/2024 Generated for Rolando garcia/Rodolfo/Sparkle on: 0 10/17/2024 04:24 PM CDT History and Physical Notes * [...] Karina is alone today, she resides at [facility]. She was diagnosed with an immunodeficiency roughly 18 years ago. We have no records. 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 Her Behects had lead to recurrent ulcerations in mouth, colon, and skin leading to frequent abx use. She had no history of sinopulmonary infections. She then was followed by Dr. Speedy Dalal of [facility] around 2003. Then over the last decade was followed by an IM doctor in [place] and then another provider in [place] when she moved. After her she moved to [place] in 2012. REJI Ng and Dr. Orellana has been managing since that time. She has been on the same dose of Hizentra since inital diagnosis and has not had recheck of labs. She is dosing 8 gm SQ weekly (each Saturday) through [facility] ([phone]). She has been stable since that time. She is also established with [facility] who is checking labs. Has been on Azathioprine for years. She avoids Topamax, prednisone, and morphine due to GI symptoms and dizziness. She has no complaintes today. No interval infections. Slated to have Flu shot at [facility]. Today, she reports no fevers, chills, night [...]
--- OUTSIDE RECORDS SUMMARY | 2024-10-17 16:25 | XMS_ITS | Clinical Summary ---
Author Organization [facility] Address [facility] [place] [address] Care Team Providers Care Service Order Dispatcher Chief Name Role Phone Kleber Conde DO Primary Care Provider + Allergies Active Allergy Reactions Criticality Noted Date Comments Yeiiehrwyz-Scob-Eegp-Cod Nausea and Vomiting Clonazepam Hives,Unknown 09/16/2020 Codeine Nausea Only 06/20/2023 Morphine Unknown,Rash Low 09/16/2020 Olanzapine Unknown 06/20/2023 Prednisone Unknown,Other (see comment) Low 09/16/2020 hypertension, headache, Sulfamethoxazole-Trimethop rim Dizziness 09/16/2020 Sulfamethoxazole Unknown 06/20/2023 Topiramate Unknown 09/16/2020 Trimethoprim Unknown 06/20/2023 Medications aspirin EC 81 MG tabletIndication s:Aspirin Therapy Take 1 tablet (81 mg total) by mouth daily. Indications: Treatment with Aspirin Active immune globulin, Human, (HIZENTRA) 4 GM/20ML SolutionIndicati ons:Autoimmune Disease Inject into the skin every 7 days. Indications: Autoimmune Disease Each leg Active Multiple Vitamin (MULTIVITAMIN ADULT) TabIndications:N utritional Support Take 1 tablet by mouth daily. Indications: Nutritional Support Active Cyanocobalamin (VITAMIN B-12) 2500 MCG SL TabIndications:V itamin B Deficiency Place 1 tablet under the tongue daily. Indications: Vitamin B Deficiency Active azaTHIOprine 50 MG tabletIndication s:Autoimmune Disease Take 2 tablets(100 mg) in the morning and 1 tablet (50 mg) at night 90 tablet 06/20/19 Active Cholecalciferol (VITAMIN D) 50 MCG (2000 UT) TabIndications:V itamin D Deficiency Take by mouth daily. Indications: Vitamin D Deficiency Active Zinc 50 MG CapIndications:N utritional Support Take by mouth daily. Indications: Nutritional Support Active VITAMIN E ORIndications:Vi tamin and/or Mineral Deficiency Take 450 mg by mouth daily. Indications: Vitamin and/or Mineral Deficiency 12/17/19 24 Active STOOL SOFTENER 100 MG capsuleIndicatio ns:Constipation [The details of the medication are not available because there are pending changes by a home health clinician.] 90 capsule 07/26/19 22 Active Additional Information Patient taking differently: TAKE 2 CAPSULE BY MOUTH TWICE DAILY PRN, Reported on 09/21/2024 atorvastatin (LIPITOR) 80 MG tabletIndication s:Blood Cholesterol Abnormal Take 1 tablet (80 mg total) by mouth daily. Indications: Blood Cholesterol Abnormal 02/13/20 22 Active calcium carb-cholecalcif anca (CALTRATE+D) 600-10 MG-MCG Tab tabletIndication s:Calcium Deficiency [The details of the medication are not available because there are pending changes by a home health clinician.] 180 tablet 12/04/19 23 Active Additional Information Patient taking differently: (No indications reported), Reported on 09/21/2024 busPIRone (BUSPAR) 15 MG tabletIndication s:Anxiety,Depres surekha Take 1 tablet (15 mg total) by mouth 3 (three) times daily. Indications: Depression, Feeling Anxious 01/16/20 23 Active EPINEPHrine 0.3 MG/0.3ML injectionIndicat ions:Allergic Reaction Injection 08/26/19 24 Active losartan (COZAAR) 100 MG tabletIndication s:Hypertension Take 1 tablet (100 mg total) by mouth daily. 90 tablet 3 12/17/19 24 Active bisacodyl EC (DULCOLAX) 5 MG Tab EC tabletIndication s:Constipation Take 1 tablet (5 mg total) by mouth as needed. Indications: Constipation 12/17/19 24 Active diphenhydrAMINE- APAP (TYLENOL PM EXTRA STRENGTH) 25-500 MG Tab tabletIndication s:Pain Take 1 tablet by mouth as needed. Indications: Pain 12/17/19 24 Active Cranberry-Vitami n C-Probiotic (AZO CRANBERRY OR)Indications:B ladder Dysfunction Take 1 Piece of gum by mouth as needed. Indications: Dysfunction of the Urinary Bladder 12/17/19 24 Active fish oil (OMEGA-3 FATTY ACID) 1000 MG Cap capsuleIndicatio ns:Vitamin and/or Mineral Deficiency Take 1 capsule (1,000 mg total) by mouth daily. Indications: Vitamin and/or Mineral Deficiency 12/17/19 24 Active Multiple Vitamins-Mineral s (PRESERVISION AREDS 2 OR)Indications:V itamin and/or Mineral Deficiency Take 1 tablet by mouth daily. Indications: Vitamin and/or Mineral Deficiency 12/17/19 24 Active Biotin 5000 MCG CapIndications:V itamin and/or Mineral Deficiency Take 1 capsule by mouth daily. Indications: Vitamin and/or Mineral Deficiency 12/17/19 24 Active D-Mannose 500 MG CapIndications:V itamin and/or Mineral Deficiency Take 1 capsule by mouth daily. Indications: Vitamin and/or Mineral Deficiency 12/17/19 24 Active OXYGENIndication s:Shortness of breath 2 L/min by Nasal route as needed. Indications: Shortness of breath 12/17/19 24 Active Misc. Devices (ROLLATOR ULTRA-LIGHT) MiscIndications: Behcet's disease (CMS/HCC HHS/HCC),Balance disorder,Multifo darnell motor neuropathy (CMS/HCC HHS/HCC) Use daily 1 each 03/10/20 24 Active levothyroxine (SYNTHROID) 100 MCG tabletIndication s:Thyroid Dysfunction TAKE 1 TABLET(100 MCG) BY MOUTH EVERY MORNING 90 tablet 1 04/10/20 24 Active gabapentin (NEURONTIN) 300 MG capsuleIndicatio ns:Multifocal motor neuropathy (CMS/HCC HHS/HCC) TAKE 2 CAPSULES BY MOUTH THREE TIMES DAILY 540 capsule 08/19/19 25 Active omeprazole (PRILOSEC) 40 MG capsuleIndicatio ns:Hiatal hernia TAKE 1 CAPSULE(40 MG) BY MOUTH DAILY 30 capsule 2 09/16/19 25 Active propranolol LA (INDERAL LA) 60 MG 24 hr capsuleIndicatio ns:Primary hypertension TAKE 1 CAPSULE(60 MG) BY MOUTH DAILY 90 capsule 09/16/19 25 Active Eszopiclone 3 MG TabIndications:S leep Disturbance Take 3 mg by mouth nightly at bedtime. Indications: Disturbed Sleep 30 tablet 2 09/22/19 25 Active FLUoxetine (PROZAC) 40 MG capsuleIndicatio ns:Mild episode of recurrent major depressive disorder Take 1 capsule (40 mg total) by mouth daily. 90 capsule 1 09/22/19 25 Active FLUoxetine HCl 60 MG TabIndications:M ild episode of recurrent major depressive disorder,ENRIKE (generalized anxiety disorder) Take 0.5 tablets by mouth daily. 45 tablet 07/01/19 25 025 Discontin ued(Dose adjustmen t) Eszopiclone 3 MG TabIndications:S leep Disturbance Take 3 mg by mouth nightly at bedtime. 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[facility]) Osteoporosis 07/01/2023 Cervical dystonia 02/07/2023 Facet arthropathy, cervical 01/03/2023 Cervical radiculopathy 01/03/2023 Chronic right-sided low back pain with bilateral sciatica 02/20/2022 Mild episode of recurrent major depressive disor merary 11/20/2021 Decreased GFR 10/31/2021 Primary hypertension 10/31/2021 Pacemaker 09/26/2020 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 09/26/2020 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/2020 Chronic kidney disease 09/16/2020 Dyslipidemia 09/16/2020 Hypothyroidism 09/16/2020 Anxiety 08/03/2017 Macrocytic anemia 07/15/2014 Resolved Problems Problem Noted Date Diagnosed Date Resolved Date Cataracts, bilateral 07/01/2023 024 Interstitial cystitis 09/16/20202024 Chronic UTI 09/16/2020 07/01/2023 Major depressive disorder, s melania episode, unspecified 09/16/2020 02/21/2022 Encounters Date Type Department Care Team Description 10/12/2024 Scan [facility] SRV[facility] Scanned, Doc Med Group 09/23/2024 Scan [facility] INFO SRVCS Scanned, Doc Med Group 09/21/2024 2:20 PM CDT Office Visit [facility] Medical Group Family & Internal Medicine [address] [address] Kleber Conde, Hypertension (The patient presents for 3 month [...] 3 Pneumococcal (Prevnar 13) 03/21/2017 Zoster (Zostavax) 02065 Unt/0.65Ml 01/26/2013 Family History Medical History Relation [...] Sex Assigned at Female 06/23/2024 1:08 PM [employer] Legal Sex Female 9:29 AM CDT Gender Identity Female 06/09/2021 8:11 AM [employer] Sexual Orientation Straight 06/09/2021 8: 11 AM [employer] Last Filed Vital Signs Vital Sign Reading [...] Description 12/29/2024 11:20 AM CDT Office Visit [facility] Medical Group Family & Internal Medicine - [id number] [place] [address] Kleber Conde, [facility] [place] [address] Health Maintenance Due Date Last Done Comments [...] Years Completed 03/21/2017, 06/06/2013, 01/15/2013 PHQ-2 (Physician [place]) Completed 06/23/2024 Meningococcal B Vaccine Aged Out [...] 148 <200 MG/DL 09/21/2024 7:46 PM CDT [facility] TRIGLYCERIDES 95 <150 MG/DL 09/21/2024 7:46 PM CDT [facility] HDL 60 >40 MG/DL 09/21/2024 7:46 PM CDT [facility] LDL-C 69 <100 MG/DL 09/21/2024 7:46 PM CDT [facility] VLDL CALCULATION 19 5 - 28 MG/DL 09/21/2024 7:46 PM CDT [facility] CHOL/HDL RATIO 2.5 0.0 - 4.0 09/21/2024 7:46 PM CDT [facility] LDL/HDL 1.2 0.41 - 2.13 09/21/2024 7:46 PM CDT [facility] NON HDL CHOLESTEROL 88 <140 MG/DL 09/21/2024 7:46 PM CDT [facility] 09/21/2024 3:47 PM CDT Kleber Conde DO LABORATORY Final Re sult ROSALINDA ARCE [address] [place] [address], [place] [phone] from Last 3 Months Insurance MEDICARE [facility] Advance Directives Documents on File Type Date Recorded Patient Patient Safety Coordinator Expl anation DNR (Do Not Resuscitate) Documentation 09/16/2020 10:18 AM POLST * Full Code (Latest Code Status on File) Date Activated Date Inactivated Comments 12/17/2023 4:09 PM Care Teams Service Order Dispatcher Chief Relationship Specialty Start Date End Date Kleber Conde DO [address] [place] [id number] PCP - General FAMILY PRACTICE 06/24/23
--- OUTSIDE RECORDS SUMMARY | 2024-10-17 16:25 | XMS_ITS ---
Author Organization [facility] ([address]) Address [address] [place] [address] Care Team Providers Care Diving Supervisor Name Role Phone Kleber Conde Primary Care Provider Alison Krishnan Unavailable [phone] Allergies Allergen (clinical drug ingredient) Drug/Non Drug [...] No issues with dosing. Now serviced by [facility], Followed by Dr. Mio Lovelace of Rheumatology. Switched to Dr. Wade in [facility] who recommended continuation of treatment here, Resides at [facility] Macrocytic anemia- labs recently by PCP. Being [...] review and pick correct strength-formula tion from [employer] options. If intended option is not shown, [...] review and pick correct strength-formula tion from [employer] options. If intended option is not shown, [...] review and pick correct strength-formula tion from [employer]ills options. If intended option is not shown, discontinue and re-order from DraftDay Search* Active azaTHIOprine 50 MG A ctive [...] Encounter Location Date Provider Diagnosis [facility] [address] [place] [address] 04/09/2024 Alison Banks Selective deficiency of immunoglobulin [...] attempted to obtain records from her prior windsmith. We do not have her pre-treatment levels or her vaccination titers. She states her IgG level previously was borderline low. Recommend continuation of her treatment for now. She will continue 8 gm of Hizentra -Last trough 1100 Sent Hizentra rx. Att: Rommel - [phone]. Return in 6 months for E&M 04/09/2024 [...] attempted to obtain records from her prior windsmith. We do not have her pre-treatment levels or her vaccination titers. She states her IgG level previously was borderline low. Recommend continuation of her treatment for now. She will continue 8 gm of Hizentra -Last trough 1100 Sent Hizentra rx. Att: Rommel - [phone]. 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 No issues with dosing. [facility]ace [facility]. Switched to Dr. Wade in [facility] who recommended [facility] of [facility]Macrocytic anemia- labs recently by PCP. Being send [...] Karina is alone today, she resides at [facility]. She was diagnosed with an immunodeficiency roughly 18 years ago. We have no records. 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 as she was unable to get into an family dinner service specialist. Her Behects had lead to recurrent ulcerations in mouth, colon, and skin leading to frequent abx use. She had no history of sinopulmonary infections. She then was followed by Dr. Speedy Dalal of [facility] around 2003. Then over the last decade was followed by an IM doctor in [place] and then another provider in [place] when she moved. After her she moved to [place] in 2013. REJI Ng and Dr. Orellana has been managing since that time. She has been on the same dose of Hizentra since inital diagnosis and has not had recheck of labs. She is dosing 8 gm SQ weekly (each Saturday) through [facility] ([phone]). She has been stable since that time. She is also established with [facility] who is checking labs. Has been on Azathioprine for years. She avoids Topamax, prednisone, and morphine due to GI symptoms and dizziness. She has no complaintes today. No interval infections. Slated to have Flu shot at [facility]. Today, she reports no fevers, chills, night [...] *Please review and pick correct strength-formulation from [employer]ills options. If intended option is not shown, [...] *Please review and pick correct strength-formulation from [employer] options. If intended option is not shown, discontinue and re-order from Quick Search*Taking Calcium 600 + D 600 MG-5 MCG TABLET 1 TAB(S) ORALLY 3 TIMES A DAY , Notes to Pharmacist: *Please review and pick correct strength-formulation from [employer]ills options. If intended option is not shown, [...] *Please review and pick correct strength-formulation from [employer]ills options. If intended option is not shown, [...] G 8427 DOC MEDS VERIFIED W/PT OR GLW9157 PREHTN/HTN BP DOC INDCD F/U DOC * [...] Management) * Billing Information: * Visit Code: 78172 Office Visit, Est Pt., Level 4. Modifiers: 25 * Procedure Codes: G8427 DOC MEDS VERIFIED W/PT OR RE. G8950 PREHTN/HTN BP DOC INDCD F/U DOC. * Sign off status: Completed true * Provider: Oswald Banks PA-C Date: 1 Generated for Rolando garcia/Rodolfo/Sparkle on: 0 10/17/2024 04:25 PM CDT History and Physical Notes * [...] Karina is alone today, she resides at [facility]. She was diagnosed with an immunodeficiency roughly 18 years ago. We have no records. 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 as she was unable to get into an family dinner service specialist. Her Behects had lead to recurrent ulcerations in mouth, colon, and skin leading to frequent abx use. She had no history of sinopulmonary infections. She then was followed by Dr. Speedy Dalal of [facility] around 2003. Then over the last decade was followed by an IM doctor in [place] and then another provider in [place] when she moved. After her she moved to [place] in 2013. REJI Ng and Dr. Orellana has been managing since that time. She has been on the same dose of Hizentra since inital diagnosis and has not had recheck of labs. She is dosing 8 gm SQ weekly (each Saturday) through [facility] ([phone]). She has been stable since that time. She is also established with System [employer] Program[employer] who is checking labs. Has been on Azathioprine for years. She avoids Topamax, prednisone, and morphine due to GI symptoms and dizziness. She has no complaintes today. No interval infections. Slated to have Flu shot at [facility]. Today, she reports no fevers, chills, night [...]
--- OUTSIDE RECORDS SUMMARY | 2024-10-17 16:25 | XMS_ITS | Encounter Summary ---
Author Organization [facility] Address [facility] [place] [address] Care Team Providers Care Pin Drafter Operator Name Role Phone Kleber Conde Primary Care Provider + Encounter Details Date Type Department Care Team (Late st Contact Info) Description 01/29/2024 [employer] Message Enc [facility] Multispecialty Care - [address], [address] [place] [id number] [facility], [facility] Provider EEG Social History [...] Sex Assigned at Female 06/23/2024 1:08 PM DITCHER Legal Sex Female 9:29 AM CDT Gender Identity Female 06/09/2021 8:11 AM DITCHER Sexual Orientation Straight 06/09/2021 8: 11 AM DITCHER documented as of this encounter Plan of Treatment Upcoming Encounters Date Type Department Care Team (Late st Contact Info) Description 12/29/2024 11:20 AM CDT Office Visit [facility] Family & Internal Medicine - [address] [address] Kleber Conde DO [facility] [place] [address] documented as of this encounter Visit Diagnoses Not on filedocumented in this encounter Additional Health Concerns Assessment Noted Time PHQ-9 Depression Total Score: 0 08/30/19 11:25 AM CDT documented as of this encounter Care Teams Pin Drafter Operator Relationship Specialty Start Date End Date Kleber Conde DO [address] [place] [id number] PCP - General FAMILY PRACTICE 06/24/23 documented as of this encounter
--- OUTSIDE RECORDS SUMMARY | 2024-10-17 16:25 | XMS_ITS | Encounter Summary ---
Author Organization [facility] Address [facility] [place] [address] Care Team Providers Care Memory Care Director Name Role Phone Kleber Conde DO Primary Care Provider + Encounter Details Date Type Department Care Team (Latest Contact Info) Description 10/12/2024 Scan [facility] INFO [facility] Scanned, Doc Med Group Social History Tobacco Use Types Packs/Day Years [...] Sex Assigned at Female 06/23/2024 1:08 PM CONTROL CHEMIST Legal Sex Female 9:29 AM CDT Gender Identity Female 06/09/2021 8:11 AM CONTROL CHEMIST Sexual Orientation Straight 06/09/2021 8: 11 AM CONTROL CHEMIST documented as of this encounter Plan of Treatment Upcoming Encounters Date Type Department Care Team ( Contact Info) Description 12/29/2024 11:20 AM CDT Office Visit [facility] Family & Internal Medicine [address] [address] Kleber Conde DO [address] [place] [address] documented as of this encounter Visit Diagnoses Not on filedocumented in this encounter Additional Health Concerns Assessment Noted Time PHQ-9 Depression Total Score: 0 08/30/19 24 11:25 AM CDT documented as of this encounter Care Teams Memory Care Director Relationship Specialty Start Date End Date Kleber Conde DO [address] [place] [address] PCP - General FAMILY PRACTICE 06/24/23 documented as of this encounter
== END 2024-10-17 11:39 | disposition home or self-care (01) ==
PROVIDERS: Emergency Provider Nurse Practitioner Family; PCP Student in an Organized Health Care Education/Training Program
DX: R34 Anuria and oliguria (principal); M35.2 Behcet's disease; M47.816 Spondylosis without myelopathy or radiculopathy, lumbar region; E04.9 Nontoxic goiter, unspecified; E78.5 Hyperlipidemia, unspecified; D80.2 Selective deficiency of immunoglobulin A [IgA]; Z95.0 Presence of cardiac pacemaker; N18.9 Chronic kidney disease, unspecified; Z79.82 Long term (current) use of aspirin
CPT/HCPCS: 81003; 87086; 99211; 99213; G0463

== ENCOUNTER 2025-02-22 10:59 | Outpatient (CLI) | payer MEDICARE, OTHER, SELFPAY ==
--- NOTE | ~2025-02-22 | XR_ITS ---
EXAMINATION: XR lumbar spine 2-3V DATE: 02/22/2025 11:28 INDICATION: Low back pain TECHNIQUE: Anteroposterior and lateral views of the lumbar spine, and cone-down lateral view of the lumbosacral junction were obtained. COMPARISON: Lumbar spine CT dated 12/15/2020 FINDINGS: Interval increase in a now 40 degree thoracolumbar dextroscoliosis from T11-L3 and 25 degrees compensatory levoscoliosis at L3-S1. Sagittal alignment is normal. Vertebral body heights are normal. There is mild to moderate left-sided disc height loss at T12-L1, L1-L2 and L2 on L3, mild to moderate right-sided predominant disc height loss at L3-L4 and L4-L5 and severe disc height loss at L5-S1. There is multilevel moderate to severe lumbar facet osteoarthritis. Cholecystectomy clips in the right upper quadrant. 3 cardiac pacemaker leads with distal tips projecting over the region of the apex of the right ventricle. IMPRESSION: 1. Interval progression of lumbar and lower thoracic spine with moderate spondylosis. Reviewed, dictated and finalized at location A. IMPRESSION: 1. Interval progression of lumbar and lower thoracic spine with moderate spondy losis.
--- NOTE | ~2025-02-22 | XR_ITS ---
EXAM/ PROCEDURE: XR thoracic spine 2V - 02/22/2025 11:13 CDT HISTORY: 85 years old Female with Low back pain, unspecified Low back pain, unspecified COMPARISON: None available TECHNIQUE: Three view(s) FINDINGS/ IMPRESSION: There are no fractures or dislocations.Multilevel degenerative changes are seen. Visualized portion of lungs are clear. S-shaped curvature of the spine is seen. AICD in place with intact wires and leads. Reviewed, dictated and finalized at location N.
== END 2025-02-22 11:00 | disposition home or self-care (01) ==
LOC: MICIMG 11:03
PROVIDERS: PCP Student in an Organized Health Care Education/Training Program; Visit Provider Physician Assistant
DX: M54.50 Low back pain, unspecified (principal); G89.29 Other chronic pain
CPT/HCPCS: 72070; 72100